=== PATIENT | female | born 1955 | race American Indian/Alaskan Native ===

== ENCOUNTER 2018-08-11 16:16 | Inpatient (IN) | payer MEDICARE ==
[2018-08-11] MEDS ORDERED: NACL 0.9% 500 ML 500 ML IV ONE (16:49)
--- NOTE | 2018-08-11 16:53 | Emergency Department Report ---
ED Fever HPI - General Stated Complaint: ELEVATED TEMP Time Seen by Provider: 08/11/18 16:40 Source: patient, EMS, other Exam Limitations: no limitations - History of Present Illness Initial Comments: He is a 62-year-old female who presents emergency room for evaluation of fever and cough. Patient was sent here by [facility] a local psychiatric facility. [facility] states patient had elevated heart rate and a temperature 100.3 and would like patient to be evaluated. Patient states she had a fever for 2 days. Patient states low-grade. Patient states she's had a cough that has been worsening over 3 days. Patient denies chest pain . Patient complains of shortness of breath that is worse than her normal baseline from her COPD. Patient states she has a history of COPD secondary to bronchiectasis. Patient states her cough is nonproductive. Patient states her fever fluctuates. Timing/Duration: yesterday Fever Severity/Quality: low grade Fever Therapy [employer] MANAGER: none Associated Symptoms: cough. denies: chest pain, confusion, diaphoresis, headache, muscle aches, nausea/vomiting, rash, shortness of breath, sore throat, stiff neck, syncope, weakness ED Review of Systems ROS: Stated complaint: ELEVATED TEMP Other details as noted in HPI Constitutional: fever. denies: chills Eyes: denies: eye pain, eye discharge, vision change ENT: denies: ear pain, throat pain Respiratory: cough, shortness of breath. denies: wheezing Cardiovascular: denies: chest pain, palpitations Endocrine: no symptoms reported Gastrointestinal: denies: abdominal pain, nausea, diarrhea Genitourinary: denies: urgency, dysuria, discharge Musculoskeletal: denies: back pain, joint swelling, arthralgia Skin: denies: rash, lesions Neurological: denies: headache, weakness, paresthesias Psychiatric: denies: anxiety, depression Hematological/Lymphatic: denies: easy bleeding, easy bruising ED Past Medical Hx - Past Medical History Previous Medical History?: Yes Hx Hypertension: Yes Hx Diabetes: Yes Hx Renal Disease: Yes Hx Psychiatric Treatment: Yes Hx Asthma: Yes Hx COPD: Yes Additional medical history: hld, anx, depression, - Surgical History Past Surgical History?: Yes Additional Surgical History: Kidney transplant in 1991 - Family History Family history: hypertension - Social History Smoking Status: Former Smoker Substance Use Type: None - Medications Home Medications: Home Medications Medication Instructions Recorded Confirmed Last Taken Type Allopurinol [Zyloprim] 100 mg PO DAILY 08/11/18 08/11/18 Unknown History Allopurinol [Zyloprim] 100 mg PO QDAY 08/11/18 08/11/18 Unknown History Levocetirizine Dihydrochloride 5 mg PO QHS 08/11/18 08/11/18 Unknown History [Xyzal] Metoprolol [Lopressor TAB] 50 mg PO QDAY 08/11/18 08/11/18 Unknown History Omeprazole 40 mg PO QAM 08/11/18 08/11/18 Unknown History Omeprazole 40 mg PO QDAY 08/11/18 08/11/18 Unknown History Pantoprazole [Protonix] 40 mg PO QDAY 08/11/18 08/11/18 Unknown History Pravastatin [Pravachol] 20 mg PO QHS 08/11/18 08/11/18 Unknown History Sertraline [Zoloft] 50 mg PO QDAY 08/11/18 08/11/18 Unknown History Sodium Bicarbonate 650 mg PO BID 08/11/18 08/11/18 Unknown History Sodium Bicarbonate 650 mg PO BID 08/11/18 08/11/18 Unknown History Temazepam 30 mg PO QHS 08/11/18 08/11/18 Unknown History Temazepam [Restoril] 15 mg PO QHS 08/11/18 08/11/18 Unknown History cycloSPORINE [SandIMMUNE] 50 mg PO QHS 08/11/18 08/11/18 Unknown History cycloSPORINE [SandIMMUNE] 50 mg PO QHS 08/11/18 08/11/18 Unknown History metroNIDAZOLE [Flagyl] 500 mg PO BID 08/11/18 08/11/18 Unknown History predniSONE [Deltasone] 7.5 mg PO DAILY 08/11/18 08/11/18 Unknown History predniSONE [Deltasone] 7.5 mg PO QDAY 08/11/18 08/11/18 Unknown History ED Physical Exam - General Limitations: No Limitations General appearance: alert, in no apparent distress - Head Head exam: Present: atraumatic, normocephalic - Eye Eye exam: Present: normal appearance - ENT ENT exam: Present: mucous membranes moist - Neck Neck exam: Present: normal inspection - Respiratory Respiratory exam: Present: normal lung sounds bilaterally, rhonchi. Absent: respiratory distress, wheezes - Cardiovascular Cardiovascular Exam: Present: regular rate, normal rhythm. Absent: systolic murmur, diastolic murmur, rubs, gallop - GI/Abdominal GI/Abdominal exam: Present: soft, normal bowel sounds - Rectal Rectal exam: Present: deferred - Extremities Exam Extremities exam: Present: normal inspection - Back Exam Back exam: Present: normal inspection - Neurological Exam Neurological exam: Present: alert, oriented X3 - Psychiatric Psychiatric exam: Present: normal affect, normal mood - Skin Skin exam: Present: warm, dry, intact, normal color. Absent: rash ED Course Vital Signs 08/11/18 08/11/18 08/11/18 16:30 18:35 18:45 Temperature 98.5 F Pulse Rate 92 H 94 H 87 Respiratory 18 23 21 Rate Blood Pressure 131/79 149/58 149/58 Blood Pressure [Right] O2 Sat by Pulse 98 99 Oximetry 08/11/18 08/11/18 08/11/18 19:00 19:15 19:30 Temperature Pulse Rate 86 102 H Respiratory 24 25 H 18 Rate Blood Pressure 142/68 142/68 Blood Pressure [Right] O2 Sat by Pulse 100 Oximetry 08/11/18 08/11/18 08/11/18 19:31 19:35 19:45 Temperature 98.4 F Pulse Rate 87 77 98 H Respiratory 25 H 18 22 Rate Blood Pressure 142/68 142/68 Blood Pressure 142/60 [Right] O2 Sat by Pulse 100 Oximetry 08/11/18 08/11/18 08/11/18 20:01 20:15 20:31 Temperature Pulse Rate 90 87 85 Respiratory 25 H 25 H 23 Rate Blood Pressure 142/60 142/60 142/68 Blood Pressure [Right] O2 Sat by Pulse Oximetry 08/11/18 08/11/18 08/11/18 20:59 21:00 21:15 Temperature Pulse Rate 91 H 93 H 99 H Respiratory 15 25 H 26 H Rate Blood Pressure 142/68 149/61 149/61 Blood Pressure [Right] O2 Sat by Pulse 99 Oximetry 08/11/18 08/11/18 08/11/18 21:46 22:00 22:16 Temperature Pulse Rate 85 85 92 H Respiratory 26 H 24 26 H Rate Blood Pressure 149/61 148/76 148/76 Blood Pressure [Right] O2 Sat by Pulse Oximetry 08/12/18 00:35 Temperature Pulse Rate 89 Respiratory 18 Rate Blood Pressure Blood Pressure 135/68 [Right] O2 Sat by Pulse 99 Oximetry - Reevaluation(s) Reevaluation #1: Discussed all results with patient. Patient will be admitted to the hospitalist service. Patient agrees to plan of care. Family at bedside. Lung sounds evaluated and patient is wheezing now and rhonchi. 08/11/18 19:15 - Consultations Consultation #1: Hospitalist consulted for admission. Hospitalist to admit patient. Hospitalist to assume care patient. 08/11/18 19:21 ED Medical Decision Making - Lab Data Result diagrams: 08/11/18 16:59 08/11/18 16:59 - EKG Data -: EKG Interpreted by Ca EKG shows normal: sinus rhythm, axis, intervals, QRS complexes, ST-T waves Rate: normal - Radiology Data Radiology results: report reviewed, image reviewed PROCEDURE: XR CHEST 1V AP TECHNIQUE: Chest radiograph single view. HISTORY: cough.fever. COMPARISONS: None . FINDINGS: Heart: Normal. Mediastinum/Vessels: Normal. Lungs/Pleural space: Mild haziness in the lateral right midlung zone may be due to atelectasis or early infiltrate.. Bony thorax: No acute osseous abnormality. Narrowing of the acromiohumeral distances in both shoulder with superior migration of the humeral head suggests rotator cuff injury. Life support devices: None. IMPRESSION: Mild atelectasis or early infiltrate in the lateral aspect of the right midlung zone - Medical Decision Making Patient is a 62-year-old female that presents emergency room with complaints of cough and fever and shortness of breath. Patient has history of bronchiectasis. Patient found to have right sided pneumonia. Patient found to have UTI. Patient's other labs unremarkable except for CK D. Patient was admitted to the hospitalist service. Patient given fluids and antibiotics. Patient is not septic. Lactic acid negative. - Differential Diagnosis cough. Fever. COPD exacerbation. Pneumonia. UTI. Critical Care Time: Yes Critical care attestation.: If time is entered above; I have spent that time in minutes in the direct care of this critically ill patient, excluding procedure time. Critical Care Time: 45 minutes ED Disposition Clinical Impression: Cough, SOB (shortness of breath), Anemia with low platelet count, Thrombocytopenia Pneumonia Qualifiers: Pneumonia type: due to unspecified organism Laterality: left Lung location: l ower lobe of lung Qualified Code(s): J18.1 - Lobar pneumonia, unspecified o rganism Fever Qualifiers: Fever type: unspecified Qualified Code(s): R50.9 - Fever, unspecified UTI (urinary tract infection) Qualifiers: Urinary tract infection type: acute cystitis Hematuria presence: with hematuria Qualified Code(s): N30.01 - Acute cystitis with hematuria Disposition: OP ADMIT IP TO THIS HOSP Is pt being admited?: Yes Does the pt Need Aspirin: No Condition: Critical Time of Disposition: 19:24
[2018-08-11 17:22] LABS: Basophils % (Auto) 0.4 % (0.0-1.8); Hematocrit 27.5 % (30.3-42.9); Hemoglobin 9.1 gm/dl (10.1-14.3); Lymphocytes # (Auto) 0.4 K/mm3 (1.2-5.4); Lymphocytes % (Auto) 6.2 % (13.4-35.0); Mean Corpuscular HGB Conc 33 % (30-34); Mean Corpuscular Volume 94 fl (79-97); Monocytes # (Auto) 0.5 K/mm3 (0.0-0.8); Monocytes % (Auto) 7.9 % (0.0-7.3); Red Blood Count 2.94 M/mm3 (3.65-5.03); Red Cell Distribution Width 17.7 % (13.2-15.2)
[2018-08-11 17:23] LABS: Platelet Count 51 K/mm3 (140-440)
[2018-08-11 17:46] LABS: Calcium 8.1 mg/dL (8.4-10.2)
--- NOTE | 2018-08-11 18:54 | XRay Report ---
PROCEDURE: XR CHEST 1V AP TECHNIQUE: Chest radiograph single view. HISTORY: cough.fever. COMPARISONS: None . FINDINGS: Heart: Normal. Mediastinum/Vessels: Normal. Lungs/Pleural space: Mild haziness in the lateral right midlung zone may be due to atelectasis or ea rly infiltrate.. Bony thorax: No acute osseous abnormality. Narrowing of the acromiohumeral distances in both shoulder with superior migration of the humeral head suggests rotator cuff injury. Life support devices: None. IMPRESSION: Mild atelectasis or early infiltrate in the lateral aspect of the right midlung zone This document is electronically signed by Jennyfer Jackson MD., August 11 2018 06:52:58 PM ET
[2018-08-11 18:58] LABS: Bilirubin,Urine NEG (Negative); Blood,Urine MOD (Negative); Color,Urine Yellow (Yellow); Urobilinogen,Urine < 2.0 mg/dL (<2.0)
[2018-08-11] MEDS ORDERED: MAXIPIME/NS 1 GM/100 ML 1 GM/100 ML BAG IV ONE (19:08)
[2018-08-11] MEDS ORDERED: NACL 0.9% 1000 ML 1,000 ML IV ONE (19:08)
[2018-08-11] MEDS ORDERED: SOLU-Medrol IV ONE (19:09)
[2018-08-11] MEDS ORDERED: DUONEB *Not for PRN Use IH ONE ×2 (19:22→22:07)
[2018-08-11] MEDS ORDERED: SODIUM CHLORIDE FLUSH SYRINGE 10 ML IV PRN (20:58)
[2018-08-11] MEDS ORDERED: ZOFRAN IV PRN (20:58)
[2018-08-11] MEDS ORDERED: TYLENOL PO PRN (20:58)
[2018-08-11] MEDS: SODIUM CHLORIDE FLUSH SYRINGE 10 ML IV SCH (21:05)
[2018-08-11] MEDS ORDERED: HEPARIN SUB-Q SCH (22:00)
[2018-08-11] MEDS ORDERED: D50W (25GM) Syringe IV PRN (23:04)
--- NOTE | 2018-08-11 23:06 | History and Physical Report ---
<AZUCENA MADISON - Last Filed: 08/11/18 23:08> History of Present Illness Date of examination: 08/11/18 Date of admission: 08/11/18 20:58 Chief complaint: Fever History of present illness: 62-year-old female with history of bronchiectasis, ESRD status post renal transplant (1991), hypertension, anemia, who presents to our facility from [place] (where is is currently 1013) with c/o fever and tachycardia. According to house physcican at [place] patient had low-grade temperature of 100.3 and elevated heart rate today and was facility and was referred to our facility for further evaluation and treatment. Patient's family is at bedside and states that she was recently admitted and treated for pneumonia at a facility in [facility]. As per family patient became confused and displayed psychosis behavior during her admission at the facility in [place] and was d/c'd to [place] for treatment. However, they feel her behavior was related to the medication she received. Admits to productive cough, and recent hospitalization Denies SI/HI, n/v/d, discolored sputum production, hemoptysis, chills, diaphoresis Past History Past Medical History: COPD, diabetes, hypertension, hyperlipidemia (anxiety and depression), renal failure, other (asthma, bronchiectasis) Past Surgical History: Other (renal transplant 1991) Social history: other (currently 1013 at [place]) Family history: no significant family history Medications and Allergies Allergies Allergy/AdvReac Type Severity Reaction Status Date / Time ropinirole Allergy Unknown Verified 08/11/18 17:48 Home Medications Medication Instructions Recorded Confirmed Last Taken Type Allopurinol [Zyloprim] 100 mg PO DAILY 08/11/18 08/11/18 Unknown History Allopurinol [Zyloprim] 100 mg PO QDAY 08/11/18 08/11/18 Unknown History Levocetirizine Dihydrochloride 5 mg PO QHS 08/11/18 08/11/18 Unknown History [Xyzal] Metoprolol [Lopressor TAB] 50 mg PO QDAY 08/11/18 08/11/18 Unknown History Omeprazole 40 mg PO QAM 08/11/18 08/11/18 Unknown History Omeprazole 40 mg PO QDAY 08/11/18 08/11/18 Unknown History Pantoprazole [Protonix] 40 mg PO QDAY 08/11/18 08/11/18 Unknown History Pravastatin [Pravachol] 20 mg PO QHS 08/11/18 08/11/18 Unknown History Sertraline [Zoloft] 50 mg PO QDAY 08/11/18 08/11/18 Unknown History Sodium Bicarbonate 650 mg PO BID 08/11/18 08/11/18 Unknown History Sodium Bicarbonate 650 mg PO BID 08/11/18 08/11/18 Unknown History Temazepam 30 mg PO QHS 08/11/18 08/11/18 Unknown History Temazepam [Restoril] 15 mg PO QHS 08/11/18 08/11/18 Unknown History cycloSPORINE [SandIMMUNE] 50 mg PO QHS 08/11/18 08/11/18 Unknown History cycloSPORINE [SandIMMUNE] 50 mg PO QHS 08/11/18 08/11/18 Unknown History metroNIDAZOLE [Flagyl] 500 mg PO BID 08/11/18 08/11/18 Unknown History predniSONE [Deltasone] 7.5 mg PO DAILY 08/11/18 08/11/18 Unknown History predniSONE [Deltasone] 7.5 mg PO QDAY 08/11/18 08/11/18 Unknown History cycloSPORINE [SandIMMUNE] 25 mg PO TID 08/12/18 08/12/18 08/07/18 History 25 mg Active Meds: Active Medications Acetaminophen (Tylenol) 650 mg PO Q4H PRN PRN Reason: Pain MILD(1-3)/Fever >100.5/HAYNES Albuterol (Proventil) 2.5 mg IH Q3HRT PRN PRN Reason: Shortness Of Breath Allopurinol (Zyloprim) 100 mg PO DAILY [facility] Docusate Sodium (Colace) 100 mg PO BID [facility] Ceftriaxone Sodium (Rocephin/Ns 1 Gm/50 Ml) 1 gm in 50 mls @ 100 mls/hr IV Q24HR [facility]; Protocol Azithromycin 500 mg/ Sodium (Chloride) 250 mls @ 250 mls/hr IV Q24HR [facility] Metoprolol Tartrate (Lopressor) 50 mg PO QDAY [facility] Miscellaneous Medication (Cyclosporine) 50 mg PO QHS [facility] Ondansetron HCl (Zofran) 4 mg IV Q8H PRN PRN Reason: Nausea And Vomiting Pravastatin Sodium (Pravachol) 20 mg PO QHS [facility] Prednisone (Deltasone) 7.5 mg PO DAILY [facility] Sodium Chloride (Sodium Chloride Flush Syringe 10 Ml) 10 ml IV BID [facility] Sodium Chloride (Sodium Chloride Flush Syringe 10 Ml) 10 ml IV PRN PRN PRN Reason: LINE FLUSH Temazepam (Restoril) 15 mg PO QHS [facility] Review of Systems All systems: negative (additional medical complaints except as noted below) Constitutional: fever Respiratory: cough (wet cough, history of bronchiectasis) Exam - Physical Exam Narrative exam: Physical exam General appearance: Present: No acute distress, alert and oriented 3, pleasant older adult female - EENT Eyes: Present: PERRL, EOM intact ENT: hearing intact, poor dentition - Neck Neck: Present: supple, normal ROM - Respiratory Respiratory effort: Non-labored Respiratory: Scattered rhonchi - Cardiovascular Heart rate: 92 (bpm) Rhythm: Sinus rhythm Heart Sounds: Present: S1 & S2. Absent: rub, click - Extremities Extremities: no ischemia, pulses intact, abnormal (BLE pitting edema, left upper extremity fistula, scattered bruising to her upper extremities - Peripheral Assessment Peripheral Pulses: within normal limits - Abdominal General gastrointestinal: soft, non-tender, normal bowel sounds - Integumentary Integumentary: Present: warm, dry - Musculoskeletal Musculoskeletal: Multiple extremities -Neurological Neurological: CNII-XII intact - Psychiatric Psychiatric: cooperative - Constitutional Vitals: Temp Pulse Resp BP Pulse Ox 98.5 F 92 H 26 H 148/76 99 08/11/18 16:30 08/11/18 22:16 08/11/18 22:16 08/11/18 22:16 08/11/18 20:59 Results - Labs CBC & Chem 7: 08/11/18 16:59 08/11/18 16:59 Labs: Laboratory Last Values WBC 6.6 K/mm3 (4.5-11.0) 08/11/18 16:59 RBC 2.94 M/mm3 (3.65-5.03) L 08/11/18 16:59 Hgb 9.1 gm/dl (10.1-14.3) L 08/11/18 16:59 Hct 27.5 % (30.3-42.9) L 08/11/18 16:59 MCV 94 fl (79-97) 08/11/18 16:59 MCH 31 pg (28-32) 08/11/18 16:59 MCHC 33 % (30-34) 08/11/18 16:59 RDW 17.7 % (13.2-15.2) H 08/11/18 16:59 Plt Count 51 K/mm3 (140-440) L 08/11/18 16:59 Lymph % (Auto) 6.2 % (13.4-35.0) L 08/11/18 16:59 [facility] % (Auto) 7.9 % (0.0-7.3) H 08/11/18 16:59 Eos % (Auto) 0.0 % (0.0-4.3) 08/11/18 16:59 Baso % (Auto) 0.4 % (0.0-1.8) 08/11/18 16:59 Lymph # 0.4 K/mm3 (1.2-5.4) L 08/11/18 16:59 [facility] # 0.5 K/mm3 (0.0-0.8) 08/11/18 16:59 Eos # 0.0 K/mm3 (0.0-0.4) 08/11/18 16:59 Baso # 0.0 K/mm3 (0.0-0.1) 08/11/18 16:59 Seg Neutrophils % 85.5 % (40.0-70.0) H 08/11/18 16:59 Seg Neutrophils # 5.7 K/mm3 (1.8-7.7) 08/11/18 16:59 Sodium 131 mmol/L (137-145) L 08/11/18 16:59 Potassium 4.5 mmol/L (3.6-5.0) 08/11/18 16:59 Chloride 94.0 mmol/L (98-107) L 08/11/18 16:59 Carbon Dioxide 24 mmol/L (22-30) 08/11/18 16:59 18 mmol/L 08/11/18 16:59 BUN 23 mg/dL (7-17) H 08/11/18 16:59 2.4 mg/dL (0.7-1.2) H 08/11/18 16:59 Estimated GFR 20 ml/min 08/11/18 16:59 10 % 08/11/18 16:59 Glucose 122 mg/dL (65-100) H 08/11/18 16:59 Lactic Acid 1.30 mmol/L (0.7-2.0) 08/11/18 19:32 Calcium 8.1 mg/dL (8.4-10.2) L 08/11/18 16:59 0.70 mg/dL (0.1-1.2) 08/11/18 16:59 AST 20 units/L (5-40) 08/11/18 16:59 ALT 10 units/L (7-56) 08/11/18 16:59 85 units/L (35-129) 08/11/18 16:59 5.6 g/dL (6.3-8.2) L 08/11/18 16:59 3.0 g/dL (3.9-5) L 08/11/18 16:59 1.2 % 08/11/18 16:59 Yellow (Yellow) 08/11/18 18:36 Clear (Clear) 08/11/18 18:36 8.0 (5.0-7.0) H 08/11/18 18:36 Ur Specific Ashkum 1.010 (1.003-1.030) 08/11/18 18:36 100 mg/dl mg/dL (Negative) 08/11/18 18:36 Neg mg/dL (Negative) 08/11/18 18:36 Neg mg/dL (Negative) 08/11/18 18:36 Mod (Negative) 08/11/18 18:36 Neg (Negative) 08/11/18 18:36 Neg (Negative) 08/11/18 18:36 < 2.0 mg/dL (<2.0) 08/11/18 18:36 Ur Leukocyte Esterase Mod (Negative) 08/11/18 18:36 75.0 /HPF (0.0-6.0) H 08/11/18 18:36 71.0 /HPF (0.0-6.0) 08/11/18 18:36 U Epithel Cells (Auto) 2.0 /HPF (0-13.0) 08/11/18 18:36 1+ /HPF 08/11/18 18:36 - Imaging and Cardiology EKG: image reviewed (sinus rhythm 92 bpm) Chest x-ray: report reviewed (Mild atelectasis or early infiltrate in the lateral aspect of the right midlung zone ), image reviewed Assessment and Plan Assessment and plan: 62-year-old female with history of bronchiectasis, ESRD status post renal transplant (1991), hypertension, anemia, who presents to our facility from [place] (where is is currently 1013) with c/o fever and tachycardia. Pt is on chronic steroids and cyclosporine post renal transplant. On presentation patient is afebrile with heart rate of 92 bpm. Urine WBC 75. Lactic acid within normal limits 2. Patient is afebrile at 98.5. Mild hyponatremia with sodium of 131. Will admit to medical floor. Urinary tract infection Hyponatremia ESRD s/p renal transplant 1991 Anemia hbg 9.1 Mild to moderate retraction DM 2 Hypertension Bronchiectasis COPD/asthma GERD HLD History of anxiety/depression Plan: Continue support care Urine culture pending Monitor CBC Monitor BMP Monitor Na, received pt 1.5L NS in ED; has BLE pitting edema, will hold off on additional fluids at this time Start Rocephin and azithromycin Continue cyclosporine and oral steroid Nephrology consultation Mental health consult pending Monitor BP Continue Home dose metoprolol 50mg daily Continue pravastatin 20 mg daily at bedtime Albuterol when necessary POC BG moitoring SSI coverage [id number] pending Continue Protonix 40mg daily DVT PPx on Heparin and SCD's This patient is seen in conjunction with Dr. Abad Advance Directives: No VTE prophylaxis?: Chemical Plan of care discussed with patient/family: Yes <PRIYA ABAD - Last Filed: 08/13/18 22:08> History of Present Illness Date of admission: 08/11/18 20:58 Medications and Allergies Active Meds: Active Medications Acetaminophen (Tylenol) 650 mg PO Q4H PRN PRN Reason: Pain MILD(1-3)/Fever >100.5/HAYNES Albuterol (Proventil) 2.5 mg IH Q3HRT PRN PRN Reason: Shortness Of Breath Allopurinol (Zyloprim) 100 mg PO DAILY [facility] Cyclosporine (Sandimmune) 50 mg PO QHS [facility] Dextrose (D50w (25gm) Syringe) 50 ml IV PRN PRN PRN Reason: Hypoglycemia Docusate Sodium (Colace) 100 mg PO BID [facility] Last Admin: 08/11/18 23:23 Dose: Not Given Documented by: Ceftriaxone Sodium (Rocephin/Ns 1 Gm/50 Ml) 1 gm in 50 mls @ 100 mls/hr IV Q24HR [facility]; Protocol Azithromycin 500 mg/ Sodium (Chloride) 250 mls @ 250 mls/hr IV Q24HR [facility] Insulin Human Lispro (Humalog) 0 unit SUB-Q ACHS CARL[facility]; Protocol Metoprolol Tartrate (Lopressor) 50 mg PO QDAY [facility] Ondansetron HCl (Zofran) 4 mg IV Q8H PRN PRN Reason: Nausea And Vomiting Pantoprazole Sodium (Protonix) 40 mg PO QDAY [facility] Pravastatin Sodium (Pravachol) 20 mg PO QHS [facility] Prednisone (Deltasone) 7.5 mg PO DAILY [facility] Sodium Chloride (Sodium Chloride Flush Syringe 10 Ml) 10 ml IV BID [facility] Last Admin: 08/11/18 21:05 Dose: 10 ml Documented by: Sodium Chloride (Sodium Chloride Flush Syringe 10 Ml) 10 ml IV PRN PRN PRN Reason: LINE FLUSH Temazepam (Restoril) 15 mg PO QHS [facility] Exam - Constitutional Vitals: Temp Pulse Resp BP Pulse Ox 98.5 F 92 H 26 H 148/76 99 08/11/18 16:30 08/11/18 22:16 08/11/18 22:16 08/11/18 22:16 08/11/18 20:59 Results - Labs CBC & Chem 7: 08/13/18 07:01 08/13/18 07:01 Labs: Laboratory Last Values WBC 6.6 K/mm3 (4.5-11.0) 08/11/18 16:59 RBC 2.94 M/mm3 (3.65-5.03) L 08/11/18 16:59 Hgb 9.1 gm/dl (10.1-14.3) L 08/11/18 16:59 Hct 27.5 % (30.3-42.9) L 08/11/18 16:59 MCV 94 fl (79-97) 08/11/18 16:59 MCH 31 pg (28-32) 08/11/18 16:59 MCHC 33 % (30-34) 08/11/18 16:59 RDW 17.7 % (13.2-15.2) H 08/11/18 16:59 Plt Count 51 K/mm3 (140-440) L 08/11/18 16:59 Lymph % (Auto) 6.2 % (13.4-35.0) L 08/11/18 16:59 [facility] % (Auto) 7.9 % (0.0-7.3) H 08/11/18 16:59 Eos % (Auto) 0.0 % (0.0-4.3) 08/11/18 16:59 Baso % (Auto) 0.4 % (0.0-1.8) 08/11/18 16:59 Lymph # 0.4 K/mm3 (1.2-5.4) L 08/11/18 16:59 [facility] # 0.5 K/mm3 (0.0-0.8) 08/11/18 16:59 Eos # 0.0 K/mm3 (0.0-0.4) 08/11/18 16:59 Baso # 0.0 K/mm3 (0.0-0.1) 08/11/18 16:59 Seg Neutrophils % 85.5 % (40.0-70.0) H 08/11/18 16:59 Seg Neutrophils # 5.7 K/mm3 (1.8-7.7) 08/11/18 16:59 Sodium 131 mmol/L (137-145) L 08/11/18 16:59 Potassium 4.5 mmol/L (3.6-5.0) 08/11/18 16:59 Chloride 94.0 mmol/L (98-107) L 08/11/18 16:59 Carbon Dioxide 24 mmol/L (22-30) 08/11/18 16:59 18 mmol/L 08/11/18 16:59 BUN 23 mg/dL (7-17) H 08/11/18 16:59 2.4 mg/dL (0.7-1.2) H 08/11/18 16:59 Estimated GFR 20 ml/min 08/11/18 16:59 10 % 08/11/18 16:59 Glucose 122 mg/dL (65-100) H 08/11/18 16:59 5.9 % (4-6) 08/11/18 23:19 Lactic Acid 1.30 mmol/L (0.7-2.0) 08/11/18 19:32 Calcium 8.1 mg/dL (8.4-10.2) L 08/11/18 16:59 0.70 mg/dL (0.1-1.2) 08/11/18 16:59 AST 20 units/L (5-40) 08/11/18 16:59 ALT 10 units/L (7-56) 08/11/18 16:59 85 units/L (35-129) 08/11/18 16:59 5.6 g/dL (6.3-8.2) L 08/11/18 16:59 3.0 g/dL (3.9-5) L 08/11/18 16:59 1.2 % 08/11/18 16:59 Yellow (Yellow) 08/11/18 18:36 Clear (Clear) 08/11/18 18:36 8.0 (5.0-7.0) H 08/11/18 18:36 Ur Specific Ash[place]um 1.010 (1.003-1.030) 08/11/18 18:36 100 mg/dl mg/dL (Negative) 08/11/18 18:36 Neg mg/dL (Negative) 08/11/18 18:36 Neg mg/dL (Negative) 08/11/18 18:36 Mod (Negative) 08/11/18 18:36 Neg (Negative) 08/11/18 18:36 Neg (Negative) 08/11/18 18:36 < 2.0 mg/dL (<2.0) 08/11/18 18:36 Ur Leukocyte Esterase Mod (Negative) 08/11/18 18:36 75.0 /HPF (0.0-6.0) H 08/11/18 18:36 71.0 /HPF (0.0-6.0) 08/11/18 18:36 U Epithel Cells (Auto) 2.0 /HPF (0-13.0) 08/11/18 18:36 1+ /HPF 08/11/18 18:36 Assessment and Plan Assessment and plan: Patient seen and examined, discussed with nurse practitioner. 62-year-old woman with a history of hypertension, diabetes, chronic kidney disease, status post renal transplant, asthma, COPD, anxiety was sent from [place] for evaluation of fever. He that [facility] on the and treated for pneumonia, unclear how long she was treated for. During that admission she was started on new medication, Seroquel, she started hallucinating, hearing voices and wanted to kill herself, she was subsequently discharged to [place] yesterday. Labs significant for urinary tract infection, hyponatremia at 131, agree with plan as stated above except discontinue heparin, patient with thrombocytopenia, place on 1013
[2018-08-11] MEDS ORDERED: COLACE ONE (23:17)
[2018-08-11] MEDS: COLACE PO SCH (23:23)
[2018-08-12] MEDS: HumaLOG SUB-Q SCH ×2 (09:26→11:30)
[2018-08-12] MEDS ORDERED: ZITHROMAX 500 MG in NACL 0.9% 250ML 250 ML IV SCH (10:00)
[2018-08-12] MEDS: SODIUM CHLORIDE FLUSH SYRINGE 10 ML IV SCH ×2 (10:01→21:29)
[2018-08-12] MEDS: ROCEPHIN/NS 1 GM/50 ML 1 GM/50 ML BAG IV SCH (12:05)
--- NOTE | 2018-08-12 13:32 | Progress Note ---
Assessment and Plan Assessment and plan: Patient is a 62-year-old woman with history of COPD/bronchiectasis, CKD 4 status post renal transplant (1991) not on hemodialysis but has a left arm AVF in anticipation for HD in the future, hypertension and AOCD who presented to [facility] ED from [facility] (where is is currently 1013) with FEVERs. Initially, patient was admitted to [facility] for pneumonia and developed psychosis in hospital; therefore, discharged to [facility] near this Hospital. She has been admitted for UTI with sepsis causing Encephalopathy. Sepsis UTI, poa: treat with abx, follow cultures, IVFs Acute metabolic encephalopahty, poa due to above Hyponatremia, dehydration: treat with IVFs CKD 4 s/p renal transplant 1991: continue home Continue cyclosporine and oral steroid, Nephrology consulted AOCD due to chronic renal failure: monitor cbc closely Depression with psychosis: mental health consulted, on 1013 Hypertension: low salt diet COPD/asthma: prn nebs GERD: ppi HLD: statin DVT ppx reviewed full code History Interval history: Patient was seen and examined. Follow-up on current diagnosis of AMS. No overnight events reported to me. Patient denies any chest pain, shortness breath, nausea/vomiting or severe headaches. Imaging, nursing note, chart, labs and old chart reviewed. Discussed with patient. I sat down and d/w patient and daughter Keya at bedside. Hospitalist Physical - Physical exam Narrative exam: Gen: WDWN, NAD, Awake, Alert, Orientated x 2, missed location, she thought she was at [facility] HEENT: NCAT, EOMI, PERRL, OP Clear Neck: supple, no adenopathy, no thyromegaly, no JVD CVS/Heart: RRR, normal S1S2, pulses present bilaterally Chest/Lungs: CTA B, Symmetrical chest expansion, good air entry bilaterally GI/Abdomen: soft, NTND, good bowel sounds, no guarding or rebound /Bladder: no suprapubic tenderness, no CVA or paraspinal tenderness Extermity/Skin: no c/c/e, no obvious rash, many seborrheic dermatitis on face MSK: FROM x 4 Neuro: CN 2-12 grossly intact, no new focal deficits Psych: calm but unpleasant to me, when I ask a question she doesn't respond but then the daughter will ask the same question and she responds. Refused to shake my hands - Constitutional Vitals: Temp Pulse Resp BP Pulse Ox 98.6 F 90 22 137/61 97 08/12/18 11:55 08/12/18 11:55 08/12/18 11:55 08/12/18 11:55 08/12/18 11:55 Results - Labs CBC & Chem 7: 08/11/18 16:59 08/11/18 16:59 Labs: Laboratory Last Values WBC 6.6 K/mm3 (4.5-11.0) 08/11/18 16:59 RBC 2.94 M/mm3 (3.65-5.03) L 08/11/18 16:59 Hgb 9.1 gm/dl (10.1-14.3) L 08/11/18 16:59 Hct 27.5 % (30.3-42.9) L 08/11/18 16:59 MCV 94 fl (79-97) 08/11/18 16:59 MCH 31 pg (28-32) 08/11/18 16:59 MCHC 33 % (30-34) 08/11/18 16:59 RDW 17.7 % (13.2-15.2) H 08/11/18 16:59 Plt Count 51 K/mm3 (140-440) L 08/11/18 16:59 Lymph % (Auto) 6.2 % (13.4-35.0) L 08/11/18 16:59 [place] % (Auto) 7.9 % (0.0-7.3) H 08/11/18 16:59 Eos % (Auto) 0.0 % (0.0-4.3) 08/11/18 16:59 Baso % (Auto) 0.4 % (0.0-1.8) 08/11/18 16:59 Lymph # 0.4 K/mm3 (1.2-5.4) L 08/11/18 16:59 [place] # 0.5 K/mm3 (0.0-0.8) 08/11/18 16:59 Eos # 0.0 K/mm3 (0.0-0.4) 08/11/18 16:59 Baso # 0.0 K/mm3 (0.0-0.1) 08/11/18 16:59 Seg Neutrophils % 85.5 % (40.0-70.0) H 08/11/18 16:59 Seg Neutrophils # 5.7 K/mm3 (1.8-7.7) 08/11/18 16:59 Sodium 131 mmol/L (137-145) L 08/11/18 16:59 Potassium 4.5 mmol/L (3.6-5.0) 08/11/18 16:59 Chloride 94.0 mmol/L (98-107) L 08/11/18 16:59 Carbon Dioxide 24 mmol/L (22-30) 08/11/18 16:59 18 mmol/L 08/11/18 16:59 BUN 23 mg/dL (7-17) H 08/11/18 16:59 2.4 mg/dL (0.7-1.2) H 08/11/18 16:59 Estimated GFR 20 ml/min 08/11/18 16:59 10 % 08/11/18 16:59 Glucose 122 mg/dL (65-100) H 08/11/18 16:59 POC Glucose 108 (70-105) H 08/12/18 12:03 5.9 % (4-6) 08/11/18 23:19 Lactic Acid 1.30 mmol/L (0.7-2.0) 08/11/18 19:32 Calcium 8.1 mg/dL (8.4-10.2) L 08/11/18 16:59 0.70 mg/dL (0.1-1.2) 08/11/18 16:59 AST 20 units/L (5-40) 08/11/18 16:59 ALT 10 units/L (7-56) 08/11/18 16:59 85 units/L (35-129) 08/11/18 16:59 5.6 g/dL (6.3-8.2) L 08/11/18 16:59 3.0 g/dL (3.9-5) L 08/11/18 16:59 1.2 % 08/11/18 16:59 Yellow (Yellow) 08/11/18 18:36 Clear (Clear) 08/11/18 18:36 8.0 (5.0-7.0) H 08/11/18 18:36 Ur Specific [place] 1.010 (1.003-1.030) 08/11/18 18:36 100 mg/dl mg/dL (Negative) 08/11/18 18:36 Neg mg/dL (Negative) 08/11/18 18:36 Neg mg/dL (Negative) 08/11/18 18:36 Mod (Negative) 08/11/18 18:36 Neg (Negative) 08/11/18 18:36 Neg (Negative) 08/11/18 18:36 < 2.0 mg/dL (<2.0) 08/11/18 18:36 Ur Leukocyte Esterase Mod (Negative) 08/11/18 18:36 75.0 /HPF (0.0-6.0) H 08/11/18 18:36 71.0 /HPF (0.0-6.0) 08/11/18 18:36 U Epithel Cells (Auto) 2.0 /HPF (0-13.0) 08/11/18 18:36 1+ /HPF 08/11/18 18:36 Active Medications - Current Medications Current Medications: Generic Name Dose Route Start Last Admin Trade Name Freq PRN Reason Stop Dose Admin Acetaminophen 650 mg 08/11/18 20:58 Tylenol PO Q4H PRN Pain MILD(1-3)/Fever >100.5/HAYNES Albuterol 2.5 mg 08/11/18 20:58 Proventil IH Q3HRT PRN Shortness Of Breath Allopurinol 100 mg 08/12/18 10:00 08/12/18 10:02 Zyloprim PO 100 mg DAILY CARLOS Administration Cyclosporine 50 mg 08/12/18 22:00 Sandimmune PO QHS CARLOS Dextrose 50 ml 08/11/18 23:04 D50w (25gm) Syringe IV PRN PRN Hypoglycemia Docusate Sodium 100 mg 08/11/18 22:00 08/12/18 10:03 Colace PO 100 mg BID CARLOS Administration Ceftriaxone Sodium 1 gm in 50 mls @ 100 mls/hr 08/12/18 10:00 08/12/18 12:05 Rocephin/Ns 1 Gm/50 Ml IV 100 mls/hr Q24HR CARLOS Administration Protocol Azithromycin 500 mg/ Sodium 250 mls @ 250 mls/hr 08/12/18 10:00 08/12/18 10:01 Chloride IV 250 mls/hr Q24HR CARLOS Administration Insulin Human Lispro 0 unit 08/12/18 07:30 08/12/18 09:26 Humalog SUB-Q 2 unit ACHS CARLOS Administration Protocol Metoprolol Tartrate 50 mg 08/12/18 10:00 Lopressor PO QDAY CARLOS Ondansetron HCl 4 mg 08/11/18 20:58 Zofran IV Q8H PRN Nausea And Vomiting Pantoprazole Sodium 40 mg 08/12/18 10:00 08/12/18 10:02 Protonix PO 40 mg QDAY CARLOS Administration Pravastatin Sodium 20 mg 08/12/18 22:00 Pravachol PO QHS CARLOS Prednisone 7.5 mg 08/12/18 10:00 08/12/18 10:02 Deltasone PO 7.5 mg DAILY CARLOS Administration Sodium Chloride 10 ml 08/11/18 22:00 08/12/18 10:01 Sodium Chloride Flush Syringe 10 Ml IV 10 ml BID CARLOS Administration Sodium Chloride 10 ml 08/11/18 20:58 Sodium Chloride Flush Syringe 10 Ml IV PRN PRN LINE FLUSH Temazepam 15 mg 08/12/18 22:00 Restoril PO QHS CARLOS
[2018-08-12] MEDS ORDERED: NACL 0.9% 1000 ML 1,000 ML IV SCH (15:00)
[2018-08-12] MEDS: COLACE PO SCH ×2 (16:30→21:29)
[2018-08-12] MEDS: DELTASONE PO SCH (16:30)
[2018-08-12] MEDS: ZYLOPRIM PO SCH (16:30)
[2018-08-12] MEDS: LOPRESSOR PO SCH (16:30)
[2018-08-12] MEDS: PROTONIX PO SCH (16:30)
--- NOTE | 2018-08-12 18:56 | Consultation ---
History of Present Illness - Reason for Consult Consult date: 08/12/18 chronic renal failure - History of Present Illness Mrs. Chavez is a 62yo kidney transplant recipient on chronic immunosuppressive therapy who presented to the ED from [place] with hx of fever and tachycardia. She reports living related donor kidney transplant at [place] in 1991. She reports that her cartridge feeder is Dr. Chavira. Her last visit was appx 6 months ago. She reports that her last SCr was 2.8mg/dL which she reports as her baseline. She denies dysuria, hematuria, allograft tenderness. She denies nausea, vomiting. She reports cough. Mrs. Chavez was recently admitted to an OSH for PNA. Past History Past Medical History: COPD, diabetes, hypertension, hyperlipidemia (anxiety and depression), other (Living related donor kidney transplant 1991 at [place]) Past Surgical History: Other (renal transplant 1991) Social history: other (currently 1013 at [place]) Family history: no significant family history Medications and Allergies Allergies Allergy/AdvReac Type Severity Reaction Status Date / Time ropinirole Allergy Unknown Verified 08/11/18 17:48 Home Medications Medication Instructions Recorded Confirmed Last Taken Type Allopurinol [Zyloprim] 100 mg PO DAILY 08/11/18 08/11/18 Unknown History Allopurinol [Zyloprim] 100 mg PO QDAY 08/11/18 08/11/18 Unknown History Levocetirizine Dihydrochloride 5 mg PO QHS 08/11/18 08/11/18 Unknown History [Xyzal] Metoprolol [Lopressor TAB] 50 mg PO QDAY 08/11/18 08/11/18 Unknown History Omeprazole 40 mg PO QAM 08/11/18 08/11/18 Unknown History Omeprazole 40 mg PO QDAY 08/11/18 08/11/18 Unknown History Pantoprazole [Protonix] 40 mg PO QDAY 08/11/18 08/11/18 Unknown History Pravastatin [Pravachol] 20 mg PO QHS 08/11/18 08/11/18 Unknown History Sertraline [Zoloft] 50 mg PO QDAY 08/11/18 08/11/18 Unknown History Sodium Bicarbonate 650 mg PO BID 08/11/18 08/11/18 Unknown History Sodium Bicarbonate 650 mg PO BID 08/11/18 08/11/18 Unknown History Temazepam 30 mg PO QHS 08/11/18 08/11/18 Unknown History Temazepam [Restoril] 15 mg PO QHS 08/11/18 08/11/18 Unknown History cycloSPORINE [SandIMMUNE] 50 mg PO QHS 08/11/18 08/11/18 Unknown History cycloSPORINE [SandIMMUNE] 50 mg PO QHS 08/11/18 08/11/18 Unknown History metroNIDAZOLE [Flagyl] 500 mg PO BID 08/11/18 08/11/18 Unknown History predniSONE [Deltasone] 7.5 mg PO DAILY 08/11/18 08/11/18 Unknown History predniSONE [Deltasone] 7.5 mg PO QDAY 08/11/18 08/11/18 Unknown History cycloSPORINE [SandIMMUNE] 25 mg PO TID 08/12/18 08/12/18 08/07/18 History 25 mg Active Meds: Active Medications Acetaminophen (Tylenol) 650 mg PO Q4H PRN PRN Reason: Pain MILD(1-3)/Fever >100.5/HAYNES Albuterol (Proventil) 2.5 mg IH Q3HRT PRN PRN Reason: Shortness Of Breath Allopurinol (Zyloprim) 100 mg PO DAILY [facility] Last Admin: 08/12/18 16:30 Dose: 100 mg Documented by: Cyclosporine (Sandimmune) 50 mg PO QHS [facility] Cyclosporine (Sandimmune) 75 mg PO QAM [facility] Docusate Sodium (Colace) 100 mg PO BID [facility] Last Admin: 08/12/18 16:30 Dose: 100 mg Documented by: Ceftriaxone Sodium (Rocephin/Ns 1 Gm/50 Ml) 1 gm in 50 mls @ 100 mls/hr IV Q 24HR [facility]; Protocol Last Admin: 08/12/18 12:05 Dose: 100 mls/hr Documented by: Sodium Chloride (Nacl 0.9% 1000 Ml) 1,000 mls @ 100 mls/hr IV DIRECT [facility] Stop: 08/13/18 00:59 Last Admin: 08/12/18 16:48 Dose: 100 mls/hr Documented by: Metoprolol Tartrate (Lopressor) 50 mg PO QDAY [facility] Last Admin: 08/12/18 16:30 Dose: 50 mg Documented by: Ondansetron HCl (Zofran) 4 mg IV Q8H PRN PRN Reason: Nausea And Vomiting Pantoprazole Sodium (Protonix) 40 mg PO QDAY [facility] Last Admin: 08/12/18 16:30 Dose: 40 mg Documented by: Pravastatin Sodium (Pravachol) 20 mg PO QHS [facility] Prednisone (Deltasone) 7.5 mg PO DAILY [facility] Last Admin: 08/12/18 16:30 Dose: 7.5 mg Documented by: Sodium Chloride (Sodium Chloride Flush Syringe 10 Ml) 10 ml IV BID [facility] Last Admin: 08/12/18 10:01 Dose: 10 ml Documented by: Sodium Chloride (Sodium Chloride Flush Syringe 10 Ml) 10 ml IV PRN PRN PRN Reason: LINE FLUSH Temazepam (Restoril) 15 mg PO QHS [facility] Review of Systems All systems: negative Exam - Vital Signs Vital signs: Vital Signs Temp Pulse Resp BP Pulse Ox 98.5 F 92 H 18 131/79 98 08/11/18 16:30 08/11/18 16:30 08/11/18 16:30 08/11/18 16:30 08/11/18 16:30 - General Appearance General appearance: well-developed, well-nourished EENT: ATNC Respiratory: Decreased Breath Sounds Heart: regular, S1S2 Gastrointestinal: Present: normal, other (no allograft tenderness with palpation). 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
[2018-08-12 20:30] LABS: Basophils % (Auto) 0.2 % (0.0-1.8); Eosinophils % (Auto) 0.1 % (0.0-4.3); Hematocrit 21.2 % (30.3-42.9); Hemoglobin 7.4 gm/dl (10.1-14.3); Lymphocytes # (Auto) 0.3 K/mm3 (1.2-5.4); Lymphocytes % (Auto) 7.1 % (13.4-35.0); Mean Corpuscular HGB Conc 35 % (30-34); Mean Corpuscular Volume 93 fl (79-97); Monocytes # (Auto) 0.2 K/mm3 (0.0-0.8); Red Blood Count 2.28 M/mm3 (3.65-5.03); Red Cell Distribution Width 18.1 % (13.2-15.2)
[2018-08-12 20:38] LABS: Platelet Count 59 K/mm3 (140-440)
[2018-08-12 20:59] LABS: Calcium 7.3 mg/dL (8.4-10.2)
[2018-08-12] MEDS: RESTORIL PO SCH (21:28)
[2018-08-12] MEDS: PRAVACHOL PO SCH (21:29)
[2018-08-12] MEDS: SandIMMUNE PO SCH (21:29)
[2018-08-12] MEDS ORDERED: CYCLOSPORINE 50 MG PO SCH (22:00)
[2018-08-13 07:18] LABS: Hematocrit 20.7 % (30.3-42.9); Mean Corpuscular HGB Conc 34 % (30-34); Mean Corpuscular Volume 95 fl (79-97); Platelet Count 60 K/mm3 (140-440); Red Blood Count 2.18 M/mm3 (3.65-5.03); Red Cell Distribution Width 18.1 % (13.2-15.2)
[2018-08-13] MEDS: ZYLOPRIM PO SCH (09:11)
[2018-08-13] MEDS: SandIMMUNE PO SCH ×2 (09:11→21:15)
[2018-08-13] MEDS: DELTASONE PO SCH (09:12)
[2018-08-13] MEDS: COLACE PO SCH ×2 (09:12→21:15)
[2018-08-13] MEDS: LOPRESSOR PO SCH (09:13)
[2018-08-13] MEDS: PROTONIX PO SCH (09:13)
[2018-08-13] MEDS ORDERED: BROVANA NEBU IH ONE (09:49)
[2018-08-13] MEDS: BROVANA NEBU IH SCH ×2 (09:51→20:22)
[2018-08-13] MEDS: PULMICORT IH SCH ×2 (09:57→20:22)
[2018-08-13] MEDS: PROVENTIL IH PRN (11:28)
[2018-08-13] MEDS: ROCEPHIN/NS 1 GM/50 ML 1 GM/50 ML BAG IV SCH ×2 (11:55→17:29)
[2018-08-13] MEDS: SODIUM CHLORIDE FLUSH SYRINGE 10 ML IV SCH ×3 (11:56→21:17)
[2018-08-13] MEDS: ZITHROMAX 500 MG in NACL 0.9% 250ML 250 ML IV SCH ×2 (11:56→17:30)
--- NOTE | 2018-08-13 13:18 | Progress Note ---
Assessment and Plan Assessment and plan: Patient is a 62-year-old woman with history of COPD/bronchiectasis, CKD 4 status post renal transplant (1991) not on hemodialysis but has a left arm AVF in anticipation for HD in the future, hypertension and AOCD who presented to [facility] ED from [facility] (where is is currently 1013) with FEVERs. Initially, patient was admitted to [facility] for pneumonia and developed psychosis in hospital; therefore, discharged to [facility] near this Hospital. She has been admitted for UTI with sepsis causing Encephalopathy. Sepsis UTI, poa: treat with abx, follow cultures, IVFs Acute metabolic encephalopahty, poa due to above Hyponatremia, dehydration: treat with IVFs CKD 4 s/p renal transplant 1991: continue home Continue cyclosporine and oral steroid, Nephrology consulted AOCD due to chronic renal failure: monitor cbc closely Depression with psychosis: mental health consulted, on 1013 Hypertension: low salt diet COPD/asthma: prn nebs GERD: ppi HLD: statin DVT ppx reviewed full code Bronchospasm; ordered neb but she is refusing RUL/RML aspiration pneumonia: restart iv rocephin and azithromycin,she is refusing peripheral iv line. Counseling done. History Interval history: Patient was seen and examined. Follow-up on current diagnosis of AMS. No overnight events reported to me. Patient denies any chest pain, shortness breath, nausea/vomiting or severe headaches. Imaging, nursing note, chart, labs and old chart reviewed. Discussed with patient. I sat down and d/w patient and daughter Keya at bedside. Hospitalist Physical - Physical exam Narrative exam: Gen: WDWN, NAD, Awake, Alert, Orientated x 2, missed location, she thought she was at [facility] HEENT: NCAT, EOMI, PERRL, OP Clear Neck: supple, no adenopathy, no thyromegaly, no JVD CVS/Heart: RRR, normal S1S2, pulses present bilaterally Chest/Lungs: CTA B, Symmetrical chest expansion, good air entry bilaterally GI/Abdomen: soft, NTND, good bowel sounds, no guarding or rebound /Bladder: no suprapubic tenderness, no CVA or paraspinal tenderness Extermity/Skin: no c/c/e, no obvious rash, many seborrheic dermatitis on face MSK: FROM x 4 Neuro: CN 2-12 grossly intact, no new focal deficits Psych: calm but unpleasant to me, when I ask a question she doesn't respond but then the daughter will ask the same question and she responds. Refused to shake my hands - Constitutional Vitals: Temp Pulse Resp BP Pulse Ox 98.2 F 93 H 24 153/95 96 08/13/18 11:57 08/13/18 11:57 08/13/18 11:57 08/13/18 11:57 08/13/18 11:57 Results - Labs CBC & Chem 7: 08/13/18 07:01 08/13/18 07:01 Labs: Laboratory Last Values WBC 2.3 K/mm3 (4.5-11.0) L 08/13/18 07:01 RBC 2.18 M/mm3 (3.65-5.03) L 08/13/18 07:01 Hgb 7.0 gm/dl (10.1-14.3) L 08/13/18 07:01 Hct 20.7 % (30.3-42.9) L 08/13/18 07:01 MCV 95 fl (79-97) 08/13/18 07:01 MCH 32 pg (28-32) 08/13/18 07:01 MCHC 34 % (30-34) 08/13/18 07:01 RDW 18.1 % (13.2-15.2) H 08/13/18 07:01 Plt Count 60 K/mm3 (140-440) L 08/13/18 07:01 Lymph % (Auto) 7.1 % (13.4-35.0) L 08/12/18 20:18 [place] % (Auto) 4.0 % (0.0-7.3) 08/12/18 20:18 Eos % (Auto) 0.1 % (0.0-4.3) 08/12/18 20:18 Baso % (Auto) 0.2 % (0.0-1.8) 08/12/18 20:18 Lymph # 0.3 K/mm3 (1.2-5.4) L 08/12/18 20:18 [place] # 0.2 K/mm3 (0.0-0.8) 08/12/18 20:18 Eos # 0.0 K/mm3 (0.0-0.4) 08/12/18 20:18 Baso # 0.0 K/mm3 (0.0-0.1) 08/12/18 20:18 Seg Neutrophils % 88.6 % (40.0-70.0) H 08/12/18 20:18 Seg Neutrophils # 3.7 K/mm3 (1.8-7.7) 08/12/18 20:18 Sodium 139 mmol/L (137-145) 08/13/18 07:01 Potassium 4.1 mmol/L (3.6-5.0) 08/13/18 07:01 Chloride 101.5 mmol/L (98-107) 08/13/18 07:01 Carbon Dioxide 21 mmol/L (22-30) L 08/13/18 07:01 21 mmol/L 08/13/18 07:01 BUN 23 mg/dL (7-17) H 08/13/18 07:01 2.6 mg/dL (0.7-1.2) H 08/13/18 07:01 Estimated GFR 23 ml/min 08/13/18 07:01 9 % 08/13/18 07:01 Glucose 83 mg/dL (65-100) 08/13/18 07:01 POC Glucose 109 (70-105) H 08/13/18 11:27 5.9 % (4-6) 08/11/18 23:19 Lactic Acid 1.30 mmol/L (0.7-2.0) 08/11/18 19:32 Calcium 7.0 mg/dL (8.4-10.2) L 08/13/18 07:01 0.70 mg/dL (0.1-1.2) 08/11/18 16:59 AST 20 units/L (5-40) 08/11/18 16:59 ALT 10 units/L (7-56) 08/11/18 16:59 85 units/L (35-129) 08/11/18 16:59 5.6 g/dL (6.3-8.2) L 08/11/18 16:59 3.0 g/dL (3.9-5) L 08/11/18 16:59 1.2 % 08/11/18 16:59 Yellow (Yellow) 08/11/18 18:36 Clear (Clear) 08/11/18 18:36 8.0 (5.0-7.0) H 08/11/18 18:36 Ur Specific [place] 1.010 (1.003-1.030) 08/11/18 18:36 100 mg/dl mg/dL (Negative) 08/11/18 18:36 Neg mg/dL (Negative) 08/11/18 18:36 Neg mg/dL (Negative) 08/11/18 18:36 Mod (Negative) 08/11/18 18:36 Neg (Negative) 08/11/18 18:36 Neg (Negative) 08/11/18 18:36 < 2.0 mg/dL (<2.0) 08/11/18 18:36 Ur Leukocyte Esterase Mod (Negative) 08/11/18 18:36 75.0 /HPF (0.0-6.0) H 08/11/18 18:36 71.0 /HPF (0.0-6.0) 08/11/18 18:36 U Epithel Cells (Auto) 2.0 /HPF (0-13.0) 08/11/18 18:36 1+ /HPF 08/11/18 18:36 Active Medications - Current Medications Current Medications: Generic Name Dose Route Start Last Admin Trade Name Freq PRN Reason Stop Dose Admin Acetaminophen 650 mg 08/11/18 20:58 Tylenol PO Q4H PRN Pain MILD(1-3)/Fever >100.5/HAYNES Albuterol 2.5 mg 08/11/18 20:58 08/13/18 11:28 Proventil IH 2.5 mg Q3HRT PRN Administration Shortness Of Breath Allopurinol 100 mg 08/12/18 10:00 08/13/18 09:11 Zyloprim PO 100 mg DAILY CARLOS Administration Arformoterol Tartrate 15 mcg 08/13/18 09:45 08/13/18 09:51 Brovana Nebu IH Not Given Q12HRT CARLOS Budesonide 0.5 mg 08/13/18 10:00 08/13/18 09:57 Pulmicort IH Not Given Q12HRT CARLOS Cyclosporine 50 mg 08/12/18 22:00 08/12/18 21:29 Sandimmune PO 50 mg QHS CARLOS Administration Cyclosporine 75 mg 08/13/18 10:00 08/13/18 09:11 Sandimmune PO 75 mg QAM CARLOS Administration Docusate Sodium 100 mg 08/11/18 22:00 08/13/18 09:12 Colace PO 100 mg BID CARLOS Administration Ceftriaxone Sodium 1 gm in 50 mls @ 100 mls/hr 08/12/18 10:00 08/13/18 11:55 Rocephin/Ns 1 Gm/50 Ml IV Not Given Q24HR CARLOS Protocol Azithromycin 500 mg/ Sodium 250 mls @ 250 mls/hr 08/13/18 10:00 08/13/18 11:56 Chloride IV Not Given Q24HR [facility] Metoprolol Tartrate 50 mg 08/12/18 10:00 08/13/18 09:13 Lopressor PO 50 mg QDAY CARLOS Administration Pantoprazole Sodium 40 mg 08/12/18 10:00 08/13/18 09:13 Protonix PO 40 mg QDAY CARLOS Administration Pravastatin Sodium 20 mg 08/12/18 22:00 08/12/18 21:29 Pravachol PO 20 mg QHS CARLOS Administration Prednisone 7.5 mg 08/12/18 10:00 08/13/18 09:12 Deltasone PO 7.5 mg DAILY CARLOS Administration Sodium Chloride 10 ml 08/11/18 22:00 08/13/18 11:56 Sodium Chloride Flush Syringe 10 Ml IV Not Given BID CARLOS Sodium Chloride 10 ml 08/11/18 20:58 Sodium Chloride Flush Syringe 10 Ml IV PRN PRN LINE FLUSH Temazepam 15 mg 08/12/18 22:00 08/12/18 21:28 Restoril PO 15 mg QHS CARLOS Administration Nutrition/Malnutrition Assess - Dietary Evaluation Nutrition/Malnutrition Findings: Nutrition Notes Start: 08/12/18 16:46 Freq: Status: Active Protocol: Document 08/12/18 16:46 RM (Rec: 08/12/18 16:55 RM [id number]) Nutrition Notes Need for Assessment generated from: tool inspector Initial or Follow up Assessment Current Diagnosis COPD,Diabetes,Hyperlipidemia Other Pertinent Diagnosis ESRD S/P renal transplant, GERD Current Diet Renal Labs/Tests Reviewed Pertinent Medications Solu-Medrol (08/11/18) Height 4 ft 11 in Weight 53.977 kg [place] Body Weight (kg) 43.18 BMI 24.0 Subjective/Other Information Screened for skin risk. [place] 15 points. Pt confused and w/sitter at time of visit. Per pt nurse pt ate 25% of breakfast this morning. Percent of energy/protein needs met: 44%/61% Burn Absent Trauma Absent #1 Nutrition Diagnosis Inadequate oral intake Etiology confusion As Evidenced by Signs and Symptoms pt nurse statement that pt ate 25% of breakfast this morning Is patient on ventilator? No Is Patient Ambulatory and/or Out of Bed No REE-([facility]-confined to bed) 7775.004 Calculation Used for Recommendations [facility] Additional Notes Protein Needs: 32-43g (0.6-0. 8g/kg) Fluid Needs: 1 ml/kcal Nutrition Intervention Change Diet Order: Continue current Add Supplement/Snack (indicate name/kcal Glucerna 1 daily /protein ) Provides kCal: 220 Provides Protein (gm) 10 Goal #1 Meet at least 75% of calorie and protein needs via PO and ONS intakes Anticipated Discharge Needs: Renal diet Follow-Up By: 08/14/18 Additional Comments Follow for PO and ONS intakes
[2018-08-13] MEDS ORDERED: DUONEB *Not for PRN Use IH SCH (14:00)
[2018-08-13] MEDS: ZOLOFT PO SCH (14:17)
--- NOTE | 2018-08-13 14:40 | Progress Note ---
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 Chavira as outpatient Subjective Date of service: 08/13/18 Interval history: Patient reports that she is feeling better. She is worried that the hospital wants to put her in senior living Objective - Vital Signs Vital signs: Vital Signs - 12hr 08/13/18 08/13/18 08/13/18 11:28 11:36 11:57 Temperature 98.2 F Pulse Rate 93 H Pulse Rate [ 82 92 H Bilateral Upper Lobe] Respiratory 24 Rate Respiratory 16 16 Rate [Bilateral Upper Lobe] Blood Pressure 153/95 O2 Sat by Pulse 96 Oximetry - General Appearance General appearance: well-developed, well-nourished EENT: ATNC Respiratory: Present: Other (coarse ) Cardiology: regular, S1S2 Gastrointestinal: normal, no tenderness, no distended Integumentary: warm and dry Musculoskeletal: other (+edema) Psychiatric: cooperative - Lab 08/13/18 07:01 08/13/18 07:01 Most recent lab results Calcium 7.0 mg/dL (8.4-10.2) L 08/13/18 07:01 Medications & Allergies - Medications Allergies/Adverse Reactions: Allergies ropinirole Allergy (Verified 08/11/18 17:48) Unknown hallucinations Home Medications: Home Medications Medication Instructions Recorded Confirmed Last Taken Type Allopurinol [Zyloprim] 100 mg PO DAILY 08/11/18 08/11/18 Unknown History Allopurinol [Zyloprim] 100 mg PO QDAY 08/11/18 08/11/18 Unknown History Levocetirizine Dihydrochloride 5 mg PO QHS 08/11/18 08/11/18 Unknown History [Xyzal] Metoprolol [Lopressor TAB] 50 mg PO QDAY 08/11/18 08/11/18 Unknown History Omeprazole 40 mg PO QAM 08/11/18 08/11/18 Unknown History Omeprazole 40 mg PO QDAY 08/11/18 08/11/18 Unknown History Pantoprazole [Protonix] 40 mg PO QDAY 08/11/18 08/11/18 Unknown History Pravastatin [Pravachol] 20 mg PO QHS 08/11/18 08/11/18 Unknown History Sertraline [Zoloft] 50 mg PO QDAY 08/11/18 08/11/18 Unknown History Sodium Bicarbonate 650 mg PO BID 08/11/18 08/11/18 Unknown History Sodium Bicarbonate 650 mg PO BID 08/11/18 08/11/18 Unknown History Temazepam 30 mg PO QHS 08/11/18 08/11/18 Unknown History Temazepam [Restoril] 15 mg PO QHS 08/11/18 08/11/18 Unknown History cycloSPORINE [SandIMMUNE] 50 mg PO QHS 08/11/18 08/11/18 Unknown History cycloSPORINE [SandIMMUNE] 50 mg PO QHS 08/11/18 08/11/18 Unknown History metroNIDAZOLE [Flagyl] 500 mg PO BID 08/11/18 08/11/18 Unknown History predniSONE [Deltasone] 7.5 mg PO DAILY 08/11/18 08/11/18 Unknown History predniSONE [Deltasone] 7.5 mg PO QDAY 08/11/18 08/11/18 Unknown History cycloSPORINE [SandIMMUNE] 25 mg PO TID 08/12/18 08/12/18 08/07/18 History 25 mg Active Medications: Generic Name Dose Route Start Last Admin Trade Name Freq PRN Reason Stop Dose Admin Acetaminophen 650 mg 08/11/18 20:58 Tylenol PO Q4H PRN Pain MILD(1-3)/Fever >100.5/HAYNES Albuterol 2.5 mg 08/11/18 20:58 08/13/18 11:28 Proventil IH 2.5 mg Q3HRT PRN Administration Shortness Of Breath Allopurinol 100 mg 08/12/18 10:00 08/13/18 09:11 Zyloprim PO 100 mg DAILY CARLOS Administration Arformoterol Tartrate 15 mcg 08/13/18 09:45 08/13/18 09:51 Brovana Nebu IH Not Given Q12HRT CARLOS Budesonide 0.5 mg 08/13/18 10:00 08/13/18 09:57 Pulmicort IH Not Given Q12HRT CARLOS Cyclosporine 50 mg 08/12/18 22:00 08/12/18 21:29 Sandimmune PO 50 mg QHS CARLOS Administration Cyclosporine 75 mg 08/13/18 10:00 08/13/18 09:11 Sandimmune PO 75 mg QAM CARLOS Administration Docusate Sodium 100 mg 08/11/18 22:00 08/13/18 09:12 Colace PO 100 mg BID CARLOS Administration Ceftriaxone Sodium 1 gm in 50 mls @ 100 mls/hr 08/12/18 10:00 08/13/18 11:55 Rocephin/Ns 1 Gm/50 Ml IV Not Given Q24HR CARLOS Protocol Azithromycin 500 mg/ Sodium 250 mls @ 250 mls/hr 08/13/18 10:00 08/13/18 11:56 Chloride IV Not Given Q24HR CARLOS Metoprolol Tartrate 50 mg 08/12/18 10:00 08/13/18 09:13 Lopressor PO 50 mg QDAY CARLOS Administration Pantoprazole Sodium 40 mg 08/12/18 10:00 08/13/18 09:13 Protonix PO 40 mg QDAY CARLOS Administration Pravastatin Sodium 20 mg 08/12/18 22:00 08/12/18 21:29 Pravachol PO 20 mg QHS CARLOS Administration Prednisone 7.5 mg 08/12/18 10:00 08/13/18 09:12 Deltasone PO 7.5 mg DAILY CARLOS Administration Sertraline HCl 50 mg 08/13/18 14:00 08/13/18 14:17 Zoloft PO 50 mg QDAY CARLOS Administration Sodium Chloride 10 ml 08/11/18 22:00 08/13/18 11:56 Sodium Chloride Flush Syringe 10 Ml IV Not Given BID CARLOS Sodium Chloride 10 ml 08/11/18 20:58 Sodium Chloride Flush Syringe 10 Ml IV PRN PRN LINE FLUSH Temazepam 15 mg 08/12/18 22:00 08/12/18 21:28 Restoril PO 15 mg QHS CARLOS Administration
[2018-08-13] MEDS ORDERED: ATIVAN PO STA (14:57)
--- NOTE | 2018-08-13 19:08 | Consultation ---
History of Present Illness - Reason for Consult Consult date: 08/13/18 Reason for consult: psychiatric evaluation - Chief Complaint Chief complaint: "I'm fine now." - History of Present Psychiatric Illness 62-year-old white female with history of COPD/bronchiectasis, CKD 4 status post renal transplant (1991) not on hemodialysis but has a left arm AVF, who presented to the ER from [facility] for fever and cough. She also had a UTI. Psychiatry was consulted to see the patient for medication management. She was also on 1013 from [facility]. She stated that she has a hx of depression and took Zoloft from her PCP for years. She reportedly is mentally stable prior to becoming septic. She initally went to [facility] where she was treated for infection, determined to have encephalopathy, and developed psycho tic symptoms. She then expressed suicidal ideation, which her daughter attributes to seroquel. She was transferred to [facility] but was determined to have acute medical needs. She was then transferred to [facility]. Ms. Chavez denies suicidal ideation and denies homicidal ideation. Her daughter says she had an episode of confusion last night but has been lucid the whole day today. She is eating and sleep has improved. She is A& Ox 4, and was able to complete a MMSE. Medications and Allergies Allergies Allergy/AdvReac Type Severity Reaction Status Date / Time ropinirole Allergy Unknown Verified 08/11/18 17:48 Home Medications Medication Instructions Recorded Confirmed Last Taken Type Allopurinol [Zyloprim] 100 mg PO DAILY 08/11/18 08/11/18 Unknown History Allopurinol [Zyloprim] 100 mg PO QDAY 08/11/18 08/11/18 Unknown History Levocetirizine Dihydrochloride 5 mg PO QHS 08/11/18 08/11/18 Unknown History [Xyzal] Metoprolol [Lopressor TAB] 50 mg PO QDAY 08/11/18 08/11/18 Unknown History Omeprazole 40 mg PO QAM 08/11/18 08/11/18 Unknown History Omeprazole 40 mg PO QDAY 08/11/18 08/11/18 Unknown History Pantoprazole [Protonix] 40 mg PO QDAY 08/11/18 08/11/18 Unknown History Pravastatin [Pravachol] 20 mg PO QHS 08/11/18 08/11/18 Unknown History Sertraline [Zoloft] 50 mg PO QDAY 08/11/18 08/11/18 Unknown History Sodium Bicarbonate 650 mg PO BID 08/11/18 08/11/18 Unknown History Sodium Bicarbonate 650 mg PO BID 08/11/18 08/11/18 Unknown History Temazepam 30 mg PO QHS 08/11/18 08/11/18 Unknown History Temazepam [Restoril] 15 mg PO QHS 08/11/18 08/11/18 Unknown History cycloSPORINE [SandIMMUNE] 50 mg PO QHS 08/11/18 08/11/18 Unknown History cycloSPORINE [SandIMMUNE] 50 mg PO QHS 08/11/18 08/11/18 Unknown History metroNIDAZOLE [Flagyl] 500 mg PO BID 08/11/18 08/11/18 Unknown History predniSONE [Deltasone] 7.5 mg PO DAILY 08/11/18 08/11/18 Unknown History predniSONE [Deltasone] 7.5 mg PO QDAY 08/11/18 08/11/18 Unknown History cycloSPORINE [SandIMMUNE] 25 mg PO TID 08/12/18 08/12/18 08/07/18 History 25 mg Active Meds: Active Medications Acetaminophen (Tylenol) 650 mg PO Q4H PRN PRN Reason: Pain MILD(1-3)/Fever >100.5/HAYNES Albuterol (Proventil) 2.5 mg IH Q3HRT PRN PRN Reason: Shortness Of Breath Last Admin: 08/13/18 11:28 Dose: 2.5 mg Documented by: Allopurinol (Zyloprim) 100 mg PO DAILY [facility] Last Admin: 08/13/18 09:11 Dose: 100 mg Documented by: Arformoterol Tartrate (Brovana Nebu) 15 mcg IH Q12HRT [facility] Last Admin: 08/13/18 09:51 Dose: Not Given Documented by: Budesonide (Pulmicort) 0.5 mg IH Q12HRT [facility] Last Admin: 08/13/18 09:57 Dose: Not Given Documented by: Cyclosporine (Sandimmune) 50 mg PO QHS [facility] Last Admin: 08/12/18 21:29 Dose: 50 mg Documented by: Cyclosporine (Sandimmune) 75 mg PO QAM [facility] Last Admin: 08/13/18 09:11 Dose: 75 mg Documented by: Docusate Sodium (Colace) 100 mg PO BID [facility] Last Admin: 08/13/18 09:12 Dose: 100 mg Documented by: Ceftriaxone Sodium (Rocephin/Ns 1 Gm/50 Ml) 1 gm in 50 mls @ 100 mls/hr IV Q24HR [facility]; Protocol Last Admin: 08/13/18 17:29 Dose: 100 mls/hr Documented by: Azithromycin 500 mg/ Sodium (Chloride) 250 mls @ 250 mls/hr IV Q24HR [facility] Last Admin: 08/13/18 17:30 Dose: 250 mls/hr Documented by: Metoprolol Tartrate (Lopressor) 50 mg PO QDAY [facility] Last Admin: 08/13/18 09:13 Dose: 50 mg Documented by: Pantoprazole Sodium (Protonix) 40 mg PO QDAY [facility] Last Admin: 08/13/18 09:13 Dose: 40 mg Documented by: Pravastatin Sodium (Pravachol) 20 mg PO QHS [facility] Last Admin: 08/12/18 21:29 Dose: 20 mg Documented by: Prednisone (Deltasone) 7.5 mg PO DAILY [facility] Last Admin: 08/13/18 09:12 Dose: 7.5 mg Documented by: Sertraline HCl (Zoloft) 50 mg PO QDAY [facility] Last Admin: 08/13/18 14:17 Dose: 50 mg Documented by: Sodium Chloride (Sodium Chloride Flush Syringe 10 Ml) 10 ml IV BID [facility] Last Admin: 08/13/18 17:30 Dose: 10 ml Documented by: Sodium Chloride (Sodium Chloride Flush Syringe 10 Ml) 10 ml IV PRN PRN PRN Reason: LINE FLUSH Temazepam (Restoril) 15 mg PO QHS [facility] Last Admin: 08/12/18 21:28 Dose: 15 mg Documented by: Past psychiatric history - Past Medical History Past Surgical History: Other (kidney transplant) - past Psychiatric treatment and history Psych: Depression psychiatric treatment history: zoloft for years by PCP for depression no previous hospitalization no suicide attempts - Social History Social history: other (remote history of alcohol dependence. none currently. no illicit substance use) Mental Status Exam - Vital signs Last Vital Signs Temp 98.7 F 08/13/18 17:31 Pulse 83 08/13/18 17:31 Resp 20 08/13/18 17:31 BP 170/67 08/13/18 17:31 Pulse Ox 96 08/13/18 17:31 - Exam Orientation: time, place, person Affect: flat Mood: calm, relaxed Thought content: other (no SI/HI) Thought Process: Intact Perceptions: none Speech: normal rate and pattern Concentration: focused Motor activity: normal Level of consciousness: alert Memory: Intact Sleep Symptoms: None Interaction: cooperative Mini mental status exam(if necessary): 24-30 Results Result Diagrams: 08/14/18 08:04 08/14/18 08:04 Abnormal lab results 08/12/18 08/12/18 08/13/18 Range/Units 20:18 20:18 07:01 WBC 4.2 L 2.3 L (4.5-11.0) K/mm3 RBC 2.28 L 2.18 L (3.65-5.03) M/mm3 Hgb 7.4 L 7.0 L (10.1-14.3) gm/dl Hct 21.2 L D 20.7 L (30.3-42.9) % MCH 33 H (28-32) pg MCHC 35 H (30-34) % RDW 18.1 H 18.1 H (13.2-15.2) % Plt Count 59 L 60 L (140-440) K/mm3 Lymph % (Auto) 7.1 L (13.4-35.0) % Lymph # 0.3 L (1.2-5.4) K/mm3 Seg Neutrophils % 88.6 H (40.0-70.0) % Sodium 134 L (137-145) mmol/L Carbon Dioxide 20 L (22-30) mmol/L BUN 23 H (7-17) mg/dL Creatinine 2.3 H (0.7-1.2) mg/dL Glucose 107 H (65-100) mg/dL POC Glucose (70-105) Calcium 7.3 L (8.4-10.2) mg/dL 08/13/18 08/13/18 08/13/18 Range/Units 07:01 11:27 17:30 WBC (4.5-11.0) K/mm3 RBC (3.65-5.03) M/mm3 Hgb (10.1-14.3) gm/dl Hct (30.3-42.9) % MCH (28-32) pg MCHC (30-34) % RDW (13.2-15.2) % Plt Count (140-440) K/mm3 Lymph % (Auto) (13.4-35.0) % Lymph # (1.2-5.4) K/mm3 Seg Neutrophils % (40.0-70.0) % Sodium (137-145) mmol/L Carbon Dioxide 21 L (22-30) mmol/L BUN 23 H (7-17) mg/dL Creatinine 2.6 H (0.7-1.2) mg/dL Glucose (65-100) mg/dL POC Glucose 109 H 153 H (70-105) Calcium 7.0 L (8.4-10.2) mg/dL All other labs normal. Assessment and Plan Assessment and plan: Impression: Hx of depression. Today the patient was calm and cooperative during the assessment. CR 2.6, Nephro is following. acute encephalopathy---resolving Recommendation/Plan: Rescind 1013. Continue home medication Zoloft 50 mg Po daily for depression. Dispo: The patient can follow up with her PCP for medication management for depression staffed with Dr. Blade Sutton.
[2018-08-13] MEDS: PRAVACHOL PO SCH (21:16)
[2018-08-13] MEDS: RESTORIL PO SCH (21:18)
[2018-08-14] MEDS: PROVENTIL IH PRN ×2 (02:30→17:13)
[2018-08-14] MEDS: PULMICORT IH SCH ×2 (07:55→20:27)
[2018-08-14] MEDS: BROVANA NEBU IH SCH ×2 (07:55→20:27)
[2018-08-14 08:25] LABS: Hematocrit 20.1 % (30.3-42.9); Hemoglobin 6.7 gm/dl (10.1-14.3); Mean Corpuscular HGB Conc 33 % (30-34); Mean Corpuscular Volume 95 fl (79-97); Red Blood Count 2.12 M/mm3 (3.65-5.03); Red Cell Distribution Width 18.4 % (13.2-15.2)
[2018-08-14 08:32] LABS: Platelet Count 59 K/mm3 (140-440)
[2018-08-14 08:41] LABS: Calcium 7.1 mg/dL (8.4-10.2)
--- NOTE | 2018-08-14 09:37 | Progress Note ---
Subjective Interval history: Patient was seen today for follow-up on multiple renal related issues Events of this hospitalization noted Patient denies having any chest pain pressure or shortness of breath Vitals labs intake output medications were reviewed Social history: Reviewed Allergies: Reviewed Family history: Reviewed Physical examination HEENT: Oral mucosa moist no pallor or icterus Neck: Supple no JVD Chest: Clear to auscultation anteriorly CVS: Regular rate and rhythm S1 and S2 heard Abdomen: Soft nontender no suprapubic masses no organomegaly appreciable Extremity: Dry skin less than 1+ peripheral edema Musculoskeletal: No joint effusion noted in knees and ankle Neurological: Alert awake Dermatology: No petechial rashes Psychiatry: No evidence of any agitation and aggression noted Assessment and plan; Status post diseased renal transplant 1991, history of chronic allograft nephropathy baseline creatinine is usually around 2.8 per patient Continue the current dose of cyclosporine and prednisone which has not been ch anged Will order for a kidney ultrasonogram Patient will need to follow-up with Dr. Chavira in the outpatient setting Due to pancytopenia patient was advised to follow-up with hematology Mild hypocalcemia patient can be considered for calcium replacement 500 twice a day Will also need a vitamin D panel in outpatient setting, Urine culture has been noted to be negative so far blood culture has been negative for last 48 hours Chest x-ray could not rule out any possibility of lung infiltrate Pyuria hematuria rule out urinary tract infection patient admitted with fever mild tachycardia rule out sepsis History of pancytopenia, patient was advised to follow-up with hematology made aware about the degree and severity of pancytopenia Patient was adequately counseled and educated regarding multiple renal related issues Pertinent lab findings were discussed with patient and patient does exhibit good understanding of renal issues. We'll continue to follow and make recommendation from renal standpoint Objective - Vital Signs Vital signs: Vital Signs - 12hr 08/14/18 08/14/18 08/14/18 02:35 05:41 07:54 Temperature 98.5 F Pulse Rate 89 Pulse Rate [ 89 96 H Bilateral Upper Lobe] Respiratory 22 Rate Respiratory 20 20 Rate [Bilateral Upper Lobe] Blood Pressure 168/61 O2 Sat by Pulse 98 Oximetry 08/14/18 08:10 Temperature Pulse Rate Pulse Rate [ 107 H Bilateral Upper Lobe] Respiratory Rate Respiratory 18 Rate [Bilateral Upper Lobe] Blood Pressure O2 Sat by Pulse Oximetry - Lab 08/14/18 08:04 08/14/18 08:04 Most recent lab results Calcium 7.1 mg/dL (8.4-10.2) L 08/14/18 08:04 Medications & Allergies - Medications Allergies/Adverse Reactions: Allergies ropinirole Allergy (Verified 08/11/18 17:48) Unknown hallucinations Home Medications: Home Medications Medication Instructions Recorded Confirmed Last Taken Type Allopurinol [Zyloprim] 100 mg PO DAILY 08/11/18 08/11/18 Unknown History Allopurinol [Zyloprim] 100 mg PO QDAY 08/11/18 08/11/18 Unknown History Levocetirizine Dihydrochloride 5 mg PO QHS 08/11/18 08/11/18 Unknown History [Xyzal] Metoprolol [Lopressor TAB] 50 mg PO QDAY 08/11/18 08/11/18 Unknown History Omeprazole 40 mg PO QAM 08/11/18 08/11/18 Unknown History Omeprazole 40 mg PO QDAY 08/11/18 08/11/18 Unknown History Pantoprazole [Protonix] 40 mg PO QDAY 08/11/18 08/11/18 Unknown History Pravastatin [Pravachol] 20 mg PO QHS 08/11/18 08/11/18 Unknown History Sertraline [Zoloft] 50 mg PO QDAY 08/11/18 08/11/18 Unknown History Sodium Bicarbonate 650 mg PO BID 08/11/18 08/11/18 Unknown History Sodium Bicarbonate 650 mg PO BID 08/11/18 08/11/18 Unknown History Temazepam 30 mg PO QHS 08/11/18 08/11/18 Unknown History Temazepam [Restoril] 15 mg PO QHS 08/11/18 08/11/18 Unknown History cycloSPORINE [SandIMMUNE] 50 mg PO QHS 08/11/18 08/11/18 Unknown History cycloSPORINE [SandIMMUNE] 50 mg PO QHS 08/11/18 08/11/18 Unknown History metroNIDAZOLE [Flagyl] 500 mg PO BID 08/11/18 08/11/18 Unknown History predniSONE [Deltasone] 7.5 mg PO DAILY 08/11/18 08/11/18 Unknown History predniSONE [Deltasone] 7.5 mg PO QDAY 08/11/18 08/11/18 Unknown History cycloSPORINE [SandIMMUNE] 25 mg PO TID 08/12/18 08/12/18 08/07/18 History 25 mg Active Medications: Generic Name Dose Route Start Last Admin Trade Name Freq PRN Reason Stop Dose Admin Acetaminophen 650 mg 08/11/18 20:58 Tylenol PO Q4H PRN Pain MILD(1-3)/Fever >100.5/HAYNES Albuterol 2.5 mg 08/11/18 20:58 08/14/18 02:30 Proventil IH 2.5 mg Q3HRT PRN Administration Shortness Of Breath Allopurinol 100 mg 08/12/18 10:00 08/13/18 09:11 Zyloprim PO 100 mg DAILY CARLOS Administration Arformoterol Tartrate 15 mcg 08/13/18 09:45 08/14/18 07:55 Brovana Nebu IH 15 mcg Q12HRT CARLOS Administration Budesonide 0.5 mg 08/13/18 10:00 08/14/18 07:55 Pulmicort IH 0.5 mg Q12HRT CARLOS Administration Cyclosporine 50 mg 08/12/18 22:00 08/13/18 21:15 Sandimmune PO 50 mg QHS CARLOS Administration Cyclosporine 75 mg 08/13/18 10:00 08/13/18 09:11 Sandimmune PO 75 mg QAM CARLOS Administration Docusate Sodium 100 mg 08/11/18 22:00 08/13/18 21:15 Colace PO Not Given BID CARLOS Ceftriaxone Sodium 1 gm in 50 mls @ 100 mls/hr 08/12/18 10:00 08/13/18 17:29 Rocephin/Ns 1 Gm/50 Ml IV 100 mls/hr Q24HR CARLOS Administration Protocol Azithromycin 500 mg/ Sodium 250 mls @ 250 mls/hr 08/13/18 10:00 08/13/18 17:30 Chloride IV 250 mls/hr Q24HR CARLOS Administration Metoprolol Tartrate 50 mg 08/12/18 10:00 08/13/18 09:13 Lopressor PO 50 mg QDAY CARLOS Administration Pantoprazole Sodium 40 mg 08/12/18 10:00 08/13/18 09:13 Protonix PO 40 mg QDAY CARLOS Administration Pravastatin Sodium 20 mg 08/12/18 22:00 08/13/18 21:16 Pravachol PO 20 mg QHS CARLOS Administration Prednisone 7.5 mg 08/12/18 10:00 08/13/18 09:12 Deltasone PO 7.5 mg DAILY CARLOS Administration Sertraline HCl 50 mg 08/13/18 14:00 08/13/18 14:17 Zoloft PO 50 mg QDAY CARLOS Administration Sodium Chloride 10 ml 08/11/18 22:00 08/13/18 21:17 Sodium Chloride Flush Syringe 10 Ml IV Not Given BID CARLOS Sodium Chloride 10 ml 08/11/18 20:58 Sodium Chloride Flush Syringe 10 Ml IV PRN PRN LINE FLUSH Temazepam 15 mg 08/12/18 22:00 08/13/18 21:18 Restoril PO 15 mg QHS CARLOS Administration
[2018-08-14] MEDS: SandIMMUNE PO SCH ×2 (11:00→22:09)
[2018-08-14] MEDS: DELTASONE PO SCH (11:01)
[2018-08-14] MEDS: ZYLOPRIM PO SCH (11:01)
[2018-08-14] MEDS: PROTONIX PO SCH (11:01)
[2018-08-14] MEDS: LOPRESSOR PO SCH (11:02)
[2018-08-14] MEDS: ZOLOFT PO SCH (11:02)
[2018-08-14] MEDS: ROCEPHIN/NS 1 GM/50 ML 1 GM/50 ML BAG IV SCH (11:02)
[2018-08-14] MEDS: SODIUM CHLORIDE FLUSH SYRINGE 10 ML IV SCH ×2 (11:03→22:15)
[2018-08-14] MEDS: ZITHROMAX 500 MG in NACL 0.9% 250ML 250 ML IV SCH (11:03)
--- NOTE | 2018-08-14 13:23 | Progress Note ---
Subjective - Reason for Consult Consult date: 08/14/18 Reason for consult: Psychiatry Follow-up - Chief Complaint Chief complaint: "Hello" 2-year-old white female who presented to the ER from [facility] for fever and cough. Psychiatry was consulted to see the patient fro medication management. She stated that she has a hx of depression and took Zoloft that was confirmed by her daughter Ashley Carter who was at t he bedside. The patient was able to state her , past/current [place] Presidents, and her location. She stated that the Zoloft was prescribed by her PCP. Ms Carter stated that her mother was sick and shouldn't have been referred to [facility]. She denies any previous suicide attempts by the patient in the past. The patient denies SI/HI's,AVh's, and depression. She stated that she prefer to see her PCP for all her medical concerns. Mental Status Exam - Vital signs Last Vital Signs Temp 32.1 F L 08/14/18 11:21 Pulse 100 H 08/14/18 11:21 Resp 28 H 08/14/18 11:21 BP 173/71 08/14/18 11:21 Pulse Ox 97 08/14/18 11:21 - Exam Narrative exam: MSE: Appearance: calm, cooperative Behavior: regular eye contact Speech: regular rate and tone Mood: "okay" Affect: congruent to mood Thought Process: circumstantial Thought Content: denies SI/HI's and AVH's Motor Activity: sitting up in bed Cognition: A/O x3 Insight: fair Judgment: fair Assessment and Plan Impression: Hx of depression. Today the patient was calm and cooperative during the assessment. CR 2.6, Nephro is following. Recommendation/Plan: Rescind 1013. Continue home medication Zoloft 50 mg Po daily fro depression. Discussed possible sucidality/medication induced shine with lai velarde and her daughter, they both verbalized understanding. Psy sign off. Dispo: The patient can follow up with her PCP for outpatient psy services. Will staff with Dr. Blade Sutton.
--- NOTE | 2018-08-14 13:24 | Progress Note ---
Assessment and Plan Assessment and plan: Patient is a 62-year-old woman with history of COPD/bronchiectasis, CKD 4 status post renal transplant (1991) not on hemodialysis but has a left arm AVF in anticipation for HD in the future, hypertension and AOCD who presented to PSYCHIATRIC ED from [facility] (where she was currently 1013) with FEVERs. Initially, patient was admitted to [facility] for pneumonia and developed psychosis in hospital; therefore, discharged to [facility] near this Hospital. She has been admitted for UTI with sepsis causing Encephalopathy. Drop in H/H, with hemoglobin 6.7 and low plt: d/w Entry Level Software Engineer, Dr. Gallo, who instructed me to give Procrit 20,000 subq x 1, ordered folate/vit b12/iron/ferritn level and Dr. Radha tavares records Sepsis UTI, poa: treat with abx, urine cultures contaminated, IVFs Acute metabolic encephalopahty, poa due to above Hyponatremia, dehydration: treat with IVFs CKD 4 s/p renal transplant 1991: continue home Continue cyclosporine and oral steroid, Nephrology consulted, input noted AOCD due to chronic renal failure: monitor cbc closely Depression with psychosis: mental health consulted, 1013 rescinded on Tuesday Hypertension: low salt diet Mild COPD/asthma exacerbation: prn nebs GERD: ppi HLD: statin Bronchospasm; ordered neb but she is refusing, counseling done poor IV access: Mildline placed 08/13/18 RUL/RML aspiration pneumonia: restarted iv rocephin and azithromycin, she's refused peripheral iv line because they couldn't get after many needle sticks, so midline placed. ordered CT chest for unresolving RML PNA from [facility]. Diarrhea: stopped colace, and ordered FOBT DVT ppx reviewed scd only due to low blood counts full code Hbg 6.7 FOBT pending Iron, ferritin, vit b12 and folate pending CT chest w/o contrast pending, cr 2.6, cycolsporine levels pending also Dr. Garcia records requested CCT 32 minutes History Interval history: Patient was seen and examined. Follow-up on current diagnosis of AMS. No overnight events reported to me. Patient denies any chest pain, shortness breath, nausea/vomiting or severe headaches. Imaging, nursing note, chart, labs and old chart reviewed. Discussed with patient. I sat down and d/w patient and daughter Keya at bedside. Hospitalist Physical - Physical exam Narrative exam: Gen: WDWN, NAD, Awake, Alert, Orientated x 2, missed location, she thought she was at [facility] HEENT: NCAT, EOMI, PERRL, OP Clear Neck: supple, no adenopathy, no thyromegaly, no JVD CVS/Heart: RRR, normal S1S2, pulses present bilaterally Chest/Lungs: CTA B, Symmetrical chest expansion, good air entry bilaterally GI/Abdomen: soft, NTND, good bowel sounds, no guarding or rebound /Bladder: no suprapubic tenderness, no CVA or paraspinal tenderness Extermity/Skin: no c/c/e, no obvious rash, many seborrheic dermatitis on face MSK: FROM x 4 Neuro: CN 2-12 grossly intact, no new focal deficits Psych: calm but unpleasant to me, when I ask a question she doesn't respond but then the daughter will ask the same question and she responds. Refused to shake my hands - Constitutional Vitals: Temp Pulse Resp BP Pulse Ox 32.1 F L 100 H 28 H 173/71 97 08/14/18 11:21 08/14/18 11:21 08/14/18 11:21 08/14/18 11:21 08/14/18 11:21 Results - Labs CBC & Chem 7: 08/14/18 08:04 08/14/18 08:04 Labs: Laboratory Last Values WBC 2.5 K/mm3 (4.5-11.0) L 08/14/18 08:04 RBC 2.12 M/mm3 (3.65-5.03) L 08/14/18 08:04 Hgb 6.7 gm/dl (10.1-14.3) L 08/14/18 08:04 Hct 20.1 % (30.3-42.9) L 08/14/18 08:04 MCV 95 fl (79-97) 08/14/18 08:04 MCH 32 pg (28-32) 08/14/18 08:04 MCHC 33 % (30-34) 08/14/18 08:04 RDW 18.4 % (13.2-15.2) H 08/14/18 08:04 Plt Count 59 K/mm3 (140-440) L 08/14/18 08:04 Lymph % (Auto) 7.1 % (13.4-35.0) L 08/12/18 20:18 [place] % (Auto) 4.0 % (0.0-7.3) 08/12/18 20:18 Eos % (Auto) 0.1 % (0.0-4.3) 08/12/18 20:18 Baso % (Auto) 0.2 % (0.0-1.8) 08/12/18 20:18 Lymph # 0.3 K/mm3 (1.2-5.4) L 08/12/18 20:18 [place] # 0.2 K/mm3 (0.0-0.8) 08/12/18 20:18 Eos # 0.0 K/mm3 (0.0-0.4) 08/12/18 20:18 Baso # 0.0 K/mm3 (0.0-0.1) 08/12/18 20:18 Seg Neutrophils % 88.6 % (40.0-70.0) H 08/12/18 20:18 Seg Neutrophils # 3.7 K/mm3 (1.8-7.7) 08/12/18 20:18 Sodium 142 mmol/L (137-145) 08/14/18 08:04 Potassium 4.1 mmol/L (3.6-5.0) 08/14/18 08:04 Chloride 106.2 mmol/L (98-107) 08/14/18 08:04 Carbon Dioxide 20 mmol/L (22-30) L 08/14/18 08:04 20 mmol/L 08/14/18 08:04 BUN 20 mg/dL (7-17) H 08/14/18 08:04 2.6 mg/dL (0.7-1.2) H 08/14/18 08:04 Estimated GFR 23 ml/min 08/14/18 08:04 8 % 08/14/18 08:04 Glucose 88 mg/dL (65-100) 08/14/18 08:04 POC Glucose 194 (70-105) H 08/14/18 11:24 5.9 % (4-6) 08/11/18 23:19 Lactic Acid 1.30 mmol/L (0.7-2.0) 08/11/18 19:32 Calcium 7.1 mg/dL (8.4-10.2) L 08/14/18 08:04 0.70 mg/dL (0.1-1.2) 08/11/18 16:59 AST 20 units/L (5-40) 08/11/18 16:59 ALT 10 units/L (7-56) 08/11/18 16:59 85 units/L (35-129) 08/11/18 16:59 5.6 g/dL (6.3-8.2) L 08/11/18 16:59 3.0 g/dL (3.9-5) L 08/11/18 16:59 1.2 % 08/11/18 16:59 Yellow (Yellow) 08/11/18 18:36 Clear (Clear) 08/11/18 18:36 8.0 (5.0-7.0) H 08/11/18 18:36 Ur Specific [place] 1.010 (1.003-1.030) 08/11/18 18:36 100 mg/dl mg/dL (Negative) 08/11/18 18:36 Neg mg/dL (Negative) 08/11/18 18:36 Neg mg/dL (Negative) 08/11/18 18:36 Mod (Negative) 08/11/18 18:36 Neg (Negative) 08/11/18 18:36 Neg (Negative) 08/11/18 18:36 < 2.0 mg/dL (<2.0) 08/11/18 18:36 Ur Leukocyte Esterase Mod (Negative) 08/11/18 18:36 75.0 /HPF (0.0-6.0) H 08/11/18 18:36 71.0 /HPF (0.0-6.0) 08/11/18 18:36 U Epithel Cells (Auto) 2.0 /HPF (0-13.0) 08/11/18 18:36 1+ /HPF 08/11/18 18:36 Active Medications - Current Medications Current Medications: Generic Name Dose Route Start Last Admin Trade Name Freq PRN Reason Stop Dose Admin Acetaminophen 650 mg 08/11/18 20:58 Tylenol PO Q4H PRN Pain MILD(1-3)/Fever >100.5/HAYNES Albuterol 2.5 mg 08/11/18 20:58 08/14/18 02:30 Proventil IH 2.5 mg Q3HRT PRN Administration Shortness Of Breath Allopurinol 100 mg 08/12/18 10:00 08/14/18 11:01 Zyloprim PO 100 mg DAILY CARLOS Administration Arformoterol Tartrate 15 mcg 08/13/18 09:45 08/14/18 07:55 Brovana Nebu IH 15 mcg Q12HRT CARLOS Administration Budesonide 0.5 mg 08/13/18 10:00 08/14/18 07:55 Pulmicort IH 0.5 mg Q12HRT CARLOS Administration Cyclosporine 50 mg 08/12/18 22:00 08/13/18 21:15 Sandimmune PO 50 mg QHS CARLOS Administration Cyclosporine 75 mg 08/13/18 10:00 08/14/18 11:00 Sandimmune PO 75 mg QAM CARLOS Administration Epoetin [place] 20 unit 08/14/18 14:00 Procrit SUB-Q 08/14/18 14:01 ONCE ONE Ceftriaxone Sodium 1 gm in 50 mls @ 100 mls/hr 08/12/18 10:00 08/14/18 11:02 Rocephin/Ns 1 Gm/50 Ml IV 100 mls/hr Q24HR CARLOS Administration Protocol Azithromycin 500 mg/ Sodium 250 mls @ 250 mls/hr 08/13/18 10:00 08/14/18 11:03 Chloride IV 250 mls/hr Q24HR CARLOS Administration Metoprolol Tartrate 50 mg 08/12/18 10:00 08/14/18 11:02 Lopressor PO 50 mg QDAY CARLOS Administration Pantoprazole Sodium 40 mg 08/12/18 10:00 08/14/18 11:01 Protonix PO 40 mg QDAY CARLOS Administration Pravastatin Sodium 20 mg 08/12/18 22:00 08/13/18 21:16 Pravachol PO 20 mg QHS CARLOS Administration Prednisone 7.5 mg 08/12/18 10:00 08/14/18 11:01 Deltasone PO 7.5 mg DAILY CARLOS Administration Sertraline HCl 50 mg 08/13/18 14:00 08/14/18 11:02 Zoloft PO 50 mg QDAY CARLOS Administration Sodium Chloride 10 ml 08/11/18 22:00 08/14/18 11:03 Sodium Chloride Flush Syringe 10 Ml IV 10 ml BID CARLOS Administration Sodium Chloride 10 ml 08/11/18 20:58 Sodium Chloride Flush Syringe 10 Ml IV PRN PRN LINE FLUSH Temazepam 15 mg 08/12/18 22:00 08/13/18 21:18 Restoril PO 15 mg QHS CARLOS Administration Nutrition/Malnutrition Assess - Dietary Evaluation Nutrition/Malnutrition Findings: Nutrition Notes Start: 08/12/18 16:46 Freq: Status: Active Protocol: Document 08/12/18 16:46 RM (Rec: 08/12/18 16:55 RM [id number]) Nutrition Notes Need for Assessment generated from: state appellate 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 [place] 15 points. Pt confused and w/sitter at time of visit. Per pt nurse pt ate 25% of breakfast this morning. Percent of energy/protein needs met: 44%/61% Burn Absent Trauma Absent #1 Nutrition Diagnosis Inadequate oral intake Etiology confusion As Evidenced by Signs and Symptoms pt nurse statement that pt ate 25% of breakfast this morning Is patient on ventilator? No Is Patient Ambulatory and/or Out of Bed No REE-([facility]-confined to bed) 1211.784 Calculation Used for Recommendations [facility] Additional Notes Protein Needs: 32-43g (0.6-0. 8g/kg) Fluid Needs: 1 ml/kcal Nutrition Intervention Change Diet Order: Continue current Add Supplement/Snack (indicate name/kcal Glucerna 1 daily /protein ) Provides kCal: 220 Provides Protein (gm) 10 Goal #1 Meet at least 75% of calorie and protein needs via PO and ONS intakes Anticipated Discharge Needs: Renal diet Follow-Up By: 08/14/18 Additional Comments Follow for PO and ONS intakes
[2018-08-14] MEDS ORDERED: APRESOLINE IV PRN (13:31)
[2018-08-14] MEDS ORDERED: PROCRIT SUB-Q ONE (14:00)
[2018-08-14 15:25] LABS: Iron 26 ug/dL (37-170); Total Iron Binding Capacity 125 mcg/dL (250-450)
--- NOTE | 2018-08-14 16:52 | Cat Scan Report ---
PROCEDURE: CT CHEST WO CON HISTORY: sob, cough Unenhanced CT of the chest was performed and data was reformatted into sagittal and coronal planes. These images demonstrate a masslike density in the superior, lateral aspect of the right upper lobe, sagittal image 232, axial image 45, 1.1 x 1.2 cm. Tumor is not excluded. There is a nodule in the inf erior aspect of the right upper lobe, axial image 55, 0.9 cm There is bibasilar dependent consolidation which is likely atelectasis. There are trace bilateral ple ural effusions. There is coronary artery calcification. There is some wall thickening of distal esophagus which is likely esophagitis. The spleen is enlarged at 15.6 x 4.6 cm. There is perihepatic ascites. IMPRESSION: Right upper lobe masslike lesion. Lung cancer is not excluded. Trace bilateral pleural effusions with bibasilar dependent consolidation likely atelectasis Splenomegaly This document is electronically signed by Delmer Elliott MD., August 14 2018 04:50:28 PM ET
--- NOTE | 2018-08-14 18:19 | Ultrasound Report ---
PROCEDURE: US RENAL TRANSPLANT HISTORY: transplant kidney ultrasound, renal failure FINDINGS: Real-time ultrasound of the right pelvic renal transplant kidney was performed and demonstr ates the kidney measures 10.9 x 5.5 x 5.0 cm. There are small cysts in the transplant kidney, the lar gest of which measures approximately 1.1 cm. There is a calculus suspected in the transplant, 0.3 cm. There is no evidence of hydronephrosis. The right [place] kidney is seen measuring 6.3 x 3.5 x 2.9 cm. It appears small and very echogenic. No right hydronephrosis is seen. There is some fluid between the kidney and the liver. The left [place] kidney measures 9.6 x 4.4 x 4.1 cm and also appears echogenic. There is moderate left hydronephrosis. There is some free fluid between the right kidney and the liver. The urinary bladder appears smooth in contour. IMPRESSION: Right transplant kidney appears normal in size and echotexture Echogenic [place] kidneys consistent with chronic renal disease This document is electronically signed by Delmer Elliott MD., August 14 2018 06:17:22 PM ET
--- NOTE | 2018-08-14 19:15 | Consultation ---
History of Present Illness Consult date: 08/14/18 Reason for consult: dyspnea, cough, pneumonia History of present illness: PULMONARY AND CRITICAL CARE CONSULTATION. DR. CELESTIN THANK YOU FOR ASKING US TO PARTICIPATE IN THE CARE OF THIS PATIENT. This is 62-year-old white female with history of bronchiectasis, ESRD status post renal transplant (1991), hypertension, anemia, who presents to our facility from [facility] (where is is currently 1013) with c/o fever and tachycardia. According to house physcican at [facility] patient had low-grade temperature of 100.3 and elevated heart rate today and was facility and was referred to our facility for further evaluation and treatment. Patient's family is at bedside and states that she was recently admitted and treated for pneumonia at a facility in [facility]. As per family patient became confused and displayed psychosis behavior during her admission at the facility in [place] and was d/c'd to [facility] for treatment. However, they feel her behavior was related to the medication she received. Patients daughter says, she is on cyclosporin for renal transplant. Patient has no history of smoking, alcohol or drug abuse. Patient worked with [email or web address] in the past. Patient allergic to Rpinirole. Patient and has one daughter. Patient presently complaining non productive cough and slight shortness of breath. Denies chest pain. Patient has been loosing weight and apetite is not good. Patient presently on room air and O2 saturation runnin g 99%. Patient CAT scan of chest done 08/14/18 reported Right upper lobe masslike lesion. Lung cancer is not excluded. Trace bilateral pleural effusions with bibasilar dependent consolidation likely atelectasis Splenomegaly. Patients CBC showed Leukopenia, anemia and thrombocytopenia. WBC 2.5. HGB 6.7, Platelets 59,000. BMP: BUN 20, Creatinin 2.6. Past History Past Medical History: COPD, diabetes, hypertension, hyperlipidemia (anxiety and depression), other (Living related donor kidney transplant 1991 at [place]) Past Surgical History: Other (renal transplant 1991) Social history: other (currently 1013 at [facility]) Family history: no significant family history Medications and Allergies Allergies Allergy/AdvReac Type Severity Reaction Status Date / Time ropinirole Allergy Unknown Verified 08/11/18 17:48 Home Medications Medication Instructions Recorded Confirmed Last Taken Type Allopurinol [Zyloprim] 100 mg PO DAILY 08/11/18 08/11/18 Unknown History Allopurinol [Zyloprim] 100 mg PO QDAY 08/11/18 08/11/18 Unknown History Levocetirizine Dihydrochloride 5 mg PO QHS 08/11/18 08/11/18 Unknown History [Xyzal] Metoprolol [Lopressor TAB] 50 mg PO QDAY 08/11/18 08/11/18 Unknown History Omeprazole 40 mg PO QA 08/11/18 08/11/18 Unknown History Omeprazole 40 mg PO QDAY 08/11/18 08/11/18 Unknown History Pantoprazole [Protonix] 40 mg PO QDAY 08/11/18 08/11/18 Unknown History Pravastatin [Pravachol] 20 mg PO QHS 08/11/18 08/11/18 Unknown History Sertraline [Zoloft] 50 mg PO QDAY 08/11/18 08/11/18 Unknown History Sodium Bicarbonate 650 mg PO BID 08/11/18 08/11/18 Unknown History Sodium Bicarbonate 650 mg PO BID 08/11/18 08/11/18 Unknown History Temazepam 30 mg PO QHS 08/11/18 08/11/18 Unknown History Temazepam [Restoril] 15 mg PO QHS 08/11/18 08/11/18 Unknown History cycloSPORINE [SandIMMUNE] 50 mg PO QHS 08/11/18 08/11/18 Unknown History cycloSPORINE [SandIMMUNE] 50 mg PO QHS 08/11/18 08/11/18 Unknown History metroNIDAZOLE [Flagyl] 500 mg PO BID 08/11/18 08/11/18 Unknown History predniSONE [Deltasone] 7.5 mg PO DAILY 08/11/18 08/11/18 Unknown History predniSONE [Deltasone] 7.5 mg PO QDAY 08/11/18 08/11/18 Unknown History cycloSPORINE [SandIMMUNE] 25 mg PO TID 08/12/18 08/12/18 08/07/18 History 25 mg Active Meds: Active Medications Acetaminophen (Tylenol) 650 mg PO Q4H PRN PRN Reason: Pain MILD(1-3)/Fever >100.5/HAYNES Albuterol (Proventil) 2.5 mg IH Q3HRT PRN PRN Reason: Shortness Of Breath Last Admin: 08/14/18 17:13 Dose: 2.5 mg Documented by: Allopurinol (Zyloprim) 100 mg PO DAILY [facility] Last Admin: 08/14/18 11:01 Dose: 100 mg Documented by: Arformoterol Tartrate (Brovana Nebu) 15 mcg IH Q12HRT [facility] Last Admin: 08/14/18 07:55 Dose: 15 mcg Documented by: Budesonide (Pulmicort) 0.5 mg IH Q12HRT [facility] Last Admin: 08/14/18 07:55 Dose: 0.5 mg Documented by: Cyclosporine (Sandimmune) 50 mg PO QHS [facility] Last Admin: 08/13/18 21:15 Dose: 50 mg Documented by: Cyclosporine (Sandimmune) 75 mg PO QAM [facility] Last Admin: 08/14/18 11:00 Dose: 75 mg Documented by: Hydralazine HCl (Apresoline) 10 mg IV Q4HR PRN PRN Reason: HTN SBP>=180 DBP>=110 Ceftriaxone Sodium (Rocephin/Ns 1 Gm/50 Ml) 1 gm in 50 mls @ 100 mls/hr IV Q24HR [facility]; Protocol Last Admin: 08/14/18 11:02 Dose: 100 mls/hr Documented by: Azithromycin 500 mg/ Sodium (Chloride) 250 mls @ 250 mls/hr IV Q24HR [facility] Last Admin: 08/14/18 11:03 Dose: 250 mls/hr Documented by: Metoprolol Tartrate (Lopressor) 50 mg PO QDAY [facility] Last Admin: 08/14/18 11:02 Dose: 50 mg Documented by: Pantoprazole Sodium (Protonix) 40 mg PO QDAY [facility] Last Admin: 08/14/18 11:01 Dose: 40 mg Documented by: Pravastatin Sodium (Pravachol) 20 mg PO QHS [facility] Last Admin: 08/13/18 21:16 Dose: 20 mg Documented by: Prednisone (Deltasone) 7.5 mg PO DAILY [facility] Last Admin: 08/14/18 11:01 Dose: 7.5 mg Documented by: Sertraline HCl (Zoloft) 50 mg PO QDAY [facility] Last Admin: 08/14/18 11:02 Dose: 50 mg Documented by: Sodium Chloride (Sodium Chloride Flush Syringe 10 Ml) 10 ml IV BID [facility] Last Admin: 08/14/18 11:03 Dose: 10 ml Documented by: Sodium Chloride (Sodium Chloride Flush Syringe 10 Ml) 10 ml IV PRN PRN PRN Reason: LINE FLUSH Temazepam (Restoril) 15 mg PO QHS [facility] Last Admin: 08/13/18 21:18 Dose: 15 mg Documented by: Review of Systems All systems: negative Physical Examination Vital signs: Vital Signs Temp Pulse Resp BP Pulse Ox 98.5 F 92 H 18 131/79 98 08/11/18 16:30 08/11/18 16:30 08/11/18 16:30 08/11/18 16:30 08/11/18 16:30 General appearance: no acute distress, alert Eyes: non-icteric ENT: oropharynx moist Neck: supple, no JVD Ascultation: Bilateral: rhonchi Cardiovascular: regular rate and rhythm Gastrointestinal: normoactive bowel sounds, soft, non-tender Integumentary: other (Appears some Erythematous rash) Extremities: no cyanosis, no edema Musculoskeletal: no deformities Gait: poor gait non-focal exam, pupils equal and round, CN II-XII normal anxious Results - Laboratory Findings CBC and BMP: 08/14/18 08:04 08/14/18 08:04 Abnormal lab findings: Abnormal Labs 08/11/18 08/11/18 08/11/18 16:59 16:59 18:36 WBC RBC 2.94 L Hgb 9.1 L Hct 27.5 L MCH MCHC RDW 17.7 H Plt Count 51 L Lymph % (Auto) 6.2 L [place] % (Auto) 7.9 H Lymph # 0.4 L Seg Neutrophils % 85.5 H Sodium 131 L Chloride 94.0 L Carbon Dioxide BUN 23 H Creatinine 2.4 H Glucose 122 H POC Glucose Calcium 8.1 L Iron TIBC Ferritin Total Protein 5.6 L Albumin 3.0 L Urine pH 8.0 H Urine WBC (Auto) 75.0 H 08/12/18 08/12/18 08/12/18 01:34 07:57 12:03 WBC RBC Hgb Hct MCH MCHC RDW Plt Count Lymph % (Auto) [place] % (Auto) Lymph # Seg Neutrophils % Sodium Chloride Carbon Dioxide BUN Creatinine Glucose POC Glucose 195 H 151 H 108 H Calcium Iron TIBC Ferritin Total Protein Albumin Urine pH Urine WBC (Auto) 08/12/18 08/12/18 08/12/18 17:24 20:18 20:18 WBC 4.2 L RBC 2.28 L Hgb 7.4 L Hct 21.2 L D MCH 33 H MCHC 35 H RDW 18.1 H Plt Count 59 L Lymph % (Auto) 7.1 L [place] % (Auto) Lymph # 0.3 L Seg Neutrophils % 88.6 H Sodium 134 L Chloride Carbon Dioxide 20 L BUN 23 H Creatinine 2.3 H Glucose 107 H POC Glucose 111 H Calcium 7.3 L Iron TIBC Ferritin Total Protein Albumin Urine pH Urine WBC (Auto) 08/13/18 08/13/18 08/13/18 07:01 07:01 11:27 WBC 2.3 L RBC 2.18 L Hgb 7.0 L Hct 20.7 L MCH MCHC RDW 18.1 H Plt Count 60 L Lymph % (Auto) [place] % (Auto) Lymph # Seg Neutrophils % Sodium Chloride Carbon Dioxide 21 L BUN 23 H Creatinine 2.6 H Glucose POC Glucose 109 H Calcium 7.0 L Iron TIBC Ferritin Total Protein Albumin Urine pH Urine WBC (Auto) 08/13/18 08/13/18 08/14/18 17:30 20:15 08:04 WBC 2.5 L RBC 2.12 L Hgb 6.7 L Hct 20.1 L MCH MCHC RDW 18.4 H Plt Count 59 L Lymph % (Auto) [place] % (Auto) Lymph # Seg Neutrophils % Sodium Chloride Carbon Dioxide BUN Creatinine Glucose POC Glucose 153 H 161 H Calcium Iron TIBC Ferritin Total Protein Albumin Urine pH Urine WBC (Auto) 08/14/18 08/14/18 08/14/18 08:04 11:24 14:57 WBC RBC Hgb Hct MCH MCHC RDW Plt Count Lymph % (Auto) [place] % (Auto) Lymph # Seg Neutrophils % Sodium Chloride Carbon Dioxide 20 L BUN 20 H Creatinine 2.6 H Glucose POC Glucose 194 H Calcium 7.1 L Iron 26 L TIBC 125 L Ferritin Total Protein Albumin Urine pH Urine WBC (Auto) 08/14/18 14:57 WBC RBC Hgb Hct MCH MCHC RDW Plt Count Lymph % (Auto) [place] % (Auto) Lymph # Seg Neutrophils % Sodium Chloride Carbon Dioxide BUN Creatinine Glucose POC Glucose Calcium Iron TIBC Ferritin 1114.0 H Total Protein Albumin Urine pH Urine WBC (Auto) - Diagnostic Findings Chest x-ray: report reviewed (MILD ATELECTASIS AND EARLY INFILTRATE RIGHT MID LUNG ZONE.), image reviewed CT scan - chest: report reviewed, image reviewed Additional studies: DD/ /23/940 TD/TT: 08/14/1812/23/940 PROCEDURE: CT CHEST WO CON HISTORY: sob, cough Unenhanced CT of the chest was performed and data was reformatted into sagittal and coronal planes. These images demonstrate a masslike density in the superior, lateral aspect of the right upper lobe, sagittal image 232, axial image 45, 1.1 x 1.2 cm. Tumor is not excluded. There is a nodule in the inferior aspect of the right upper lobe, axial image 55, 0.9 cm There is bibasilar dependent consolidation which is likely atelectasis. There are trace bilateral pleural effusions. There is coronary artery calcification. There is some wall thickening of distal esophagus which is likely esophagitis. The spleen is enlarged at 15.6 x 4.6 cm. There is perihepatic ascites. IMPRESSION: Right upper lobe masslike lesion. Lung cancer is not excluded. Trace bilateral pleural effusions with bibasilar dependent consolidation likely atelectasis Splenomegaly This document is electronically signed by Delmer Elliott MD., August 14 2018 04:50:28 PM ET Assessment and Plan his is 62-year-old white female with history of bronchiectasis, ESRD status post renal transplant (1991), hypertension, anemia, who presents to our facility from [facility] (where is is currently 1013) with c/o fever and tachycardia. According to house physcican at [facility] patient had low-grade temperature of 100.3 and elevated heart rate today and was facility and was referred to our facility for further evaluation and treatment. Patient's family is at bedside and states that she was recently admitted and treated for pneumonia at a facility in [facility]. As per family patient became confused and displayed psychosis behavior during her admission at the facility in [place] and was d/c'd to [facility] for treatment. However, they feel her behavior was related to the medication she received. Patients daughter says, she is on cyclosporin for renal transplant. Patient has no history of smoking, alcohol or drug abuse. Patient worked with [employer] and [employer] in the past. Patient allergic to Rpinirole. Patient and has one daughter. Patient presently complaining non productive cough and slight shortness of breath. Denies chest pain. Patient has been loosing weight and apetite is not good. Patient presently on room air and O2 saturation runnin g 99%. Patient CAT scan of chest done 08/14/18 reported Right upper lobe masslike lesion. Lung cancer is not excluded. Trace bilateral pleural effusions with bibasilar dependent consolidation likely atelectasis Splenomegaly. Patients CBC showed Leukopenia, anemia and thrombocytopenia. WBC 2.5. HGB 6.7, Platelets 59,000. BMP: BUN 20, Creatinin 2.6. - Patient Problems (1) Pneumonia Current Visit: Yes Status: Acute Qualifiers: Pneumonia type: due to unspecified organism Laterality: left Lung location: lower lobe of lung Qualified Code(s): J18.1 - Lobar pneumonia, unspecified organism Plan to address problem: Patient is on Zithromax and Ceftrioxone. (2) SOB (shortness of breath) Current Visit: Yes Status: Acute Plan to address problem: Albuterol/atrovent aerosol treatments q 6 hours. Patient is on PO Prednisone. (3) Anemia with low platelet count Current Visit: Yes Status: Acute Plan to address problem: Recommend to consult hematology. (4) Thrombocytopenia Current Visit: Yes Status: Acute Plan to address problem: Recommend to consult Hematology. (5) UTI (urinary tract infection) Current Visit: Yes Status: Acute Qualifiers: Urinary tract infection type: acute cystitis Hematuria presence: with hematuria Qualified Code(s): N30.01 - Acute cystitis with hematuria Plan to address problem: Patient is on ceftrioxone and Zithromax. (6) MAYURI (acute kidney injury) Current Visit: Yes Status: Acute Plan to address problem: Recommend to consult nephrology. Patient has history kidney transplant. (7) Lung density on x-ray Current Visit: Yes Status: Acute Plan to address problem: Lung Density right upper lobe Reported on the CT of chest. According to the patient and patients daughter it was read as Bronchiectasis at [facility] Recommend to get those reports , if possible disc to compare with present CAT scan of chest. Patients daughter said, she will make arrangements to get those results.
[2018-08-14] MEDS: PRAVACHOL PO SCH (22:10)
[2018-08-14] MEDS: RESTORIL PO SCH (22:10)
[2018-08-14] MEDS ORDERED: IMODIUM PO PRN ×2 (22:26→22:30)
[2018-08-14] MEDS ORDERED: NACL 0.9% 250ML 250 ML IV ONE (22:37)
--- NOTE | 2018-08-14 22:37 | Event Note ---
Date: 08/14/18 Patient with diarrhea 5-6 stool so far per nursing staff. CDiff toxin ordered family concerned about dehyration. GENTLE Hydration 250cc ordered. Imodium x4 tabs total till c-diff toxins result available. Place on contact isolation.
--- NOTE | 2018-08-15 05:36 | Event Note ---
Date: 08/14/18 [id number]
--- NOTE | 2018-08-15 05:37 | Event Note ---
Date: 08/14/18 [id number]
--- NOTE | 2018-08-15 08:04 | Hem/Onc Progress Note ---
Assessment and Plan 1. Anemia, leukopenia, thrombocytopenia. The patient is on cyclosporine, this may have a role As per the patient, she has seen Dr. Garcia at [place] and undergone bone marrow biopsy. The patient has been on Aranesp support. At this time, the patient's neutrophil count on admission was not low. 2. Thrombocytopenia, medications cyclosporine related or marrow issue. 3. We will continue erythropoietin support. We will get information from Dr. Garcia. 4. Renal transplant, on cyclosporine. 5. History of pneumonia. 6. Diabetes. hemoglobin was 9 and then it has fallen down. smear evaluation. pt was also on prednisone 7.5 mg daily - Patient Problems (1) Anemia with low platelet count Current Visit: Yes Status: Acute Subjective Date of service: 08/15/18 Principal diagnosis: anemia - low plt Interval history: h/o bruises pt has been on steroids Objective - Constitutional Vitals: Last Vital Signs Temp 99.4 F 08/15/18 06:34 Pulse 93 H 08/15/18 06:34 Resp 22 08/15/18 06:34 BP 170/58 08/15/18 06:34 Pulse Ox 95 08/15/18 06:34 Pain Intensity (0-10): denies any pain General appearance: no acute distress Performance status: 3-limited selfcare - EENT Eyes: EOM intact ENT: clear oral mucosa Lymph node exam: negative cervical - Neck Neck: normal ROM - Respiratory Respiratory effort: Positive: normal Respiratory: bilateral: CTA (anteriorly) - Cardiovascular Heart Sounds: Present: S1 & S2 Extremities: normal temperature - Gastrointestinal General gastrointestinal: Present: soft, non-tender Rectal Exam: deferred - Genitourinary Female genitourinary: Present: deferred - Integumentary Integumentary: warm - Musculoskeletal Musculoskeletal: strength equal bilaterally - Neurologic Neurologic: moves all extremities - Labs Lab Results: Laboratory Results - last 24 hr 08/14/18 08/14/18 08/14/18 07:52 08:04 08:04 WBC 2.5 L RBC 2.12 L Hgb 6.7 L Hct 20.1 L MCV 95 MCH 32 MCHC 33 RDW 18.4 H Plt Count 59 L Sodium 142 Potassium 4.1 Chloride 106.2 Carbon Dioxide 20 L Anion Gap 20 BUN 20 H Creatinine 2.6 H Estimated GFR 23 BUN/Creatinine Ratio 8 Glucose 88 POC Glucose 84 Calcium 7.1 L Iron TIBC Ferritin Vitamin B12 Folate 08/14/18 08/14/18 08/14/18 11:24 14:57 14:57 WBC RBC Hgb Hct MCV MCH MCHC RDW Plt Count Sodium Potassium Chloride Carbon Dioxide Anion Gap BUN Creatinine Estimated GFR BUN/Creatinine Ratio Glucose POC Glucose 194 H Calcium Iron 26 L TIBC 125 L Ferritin 1114.0 H Vitamin B12 Folate 08/14/18 08/14/18 08/14/18 14:57 14:57 17:31 WBC RBC Hgb Hct MCV MCH MCHC RDW Plt Count Sodium Potassium Chloride Carbon Dioxide Anion Gap BUN Creatinine Estimated GFR BUN/Creatinine Ratio Glucose POC Glucose 97 Calcium Iron TIBC Ferritin Vitamin B12 605.3 Folate 11.85 Medications & Allergies - Medications Allergies/Adverse Reactions: Allergies ropinirole Allergy (Verified 08/11/18 17:48) Unknown hallucinations Home Medications: Home Medications Medication Instructions Recorded Confirmed Last Taken Type Allopurinol [Zyloprim] 100 mg PO DAILY 08/11/18 08/11/18 Unknown History Allopurinol [Zyloprim] 100 mg PO QDAY 08/11/18 08/11/18 Unknown History Levocetirizine Dihydrochloride 5 mg PO QHS 08/11/18 08/11/18 Unknown History [Xyzal] Metoprolol [Lopressor TAB] 50 mg PO QDAY 08/11/18 08/11/18 Unknown History Pantoprazole [Protonix] 40 mg PO QDAY 08/11/18 08/11/18 Unknown History Pravastatin [Pravachol] 20 mg PO QHS 08/11/18 08/11/18 Unknown History RX: Omeprazole 40 mg PO QAM 08/11/18 08/11/18 Unknown History RX: Omeprazole 40 mg PO QDAY 08/11/18 08/11/18 Unknown History RX: Sodium Bicarbonate 650 mg PO BID 08/11/18 08/11/18 Unknown History RX: Sodium Bicarbonate 650 mg PO BID 08/11/18 08/11/18 Unknown History RX: Temazepam 30 mg PO QHS 08/11/18 08/11/18 Unknown History RX: predniSONE [Deltasone] 7.5 mg PO DAILY 08/11/18 08/11/18 Unknown History RX: predniSONE [Deltasone] 7.5 mg PO QDAY 08/11/18 08/11/18 Unknown History Sertraline [Zoloft] 50 mg PO QDAY 08/11/18 08/11/18 Unknown History Temazepam [Restoril] 15 mg PO QHS 08/11/18 08/11/18 Unknown History cycloSPORINE [SandIMMUNE] 50 mg PO QHS 08/11/18 08/11/18 Unknown History cycloSPORINE [SandIMMUNE] 50 mg PO QHS 08/11/18 08/11/18 Unknown History metroNIDAZOLE [Flagyl] 500 mg PO BID 08/11/18 08/11/18 Unknown History cycloSPORINE [SandIMMUNE] 25 mg PO TID 08/12/18 08/12/18 08/07/18 History 25 mg Active Medications: Generic Name Dose Route Start Last Admin Trade Name Freq PRN Reason Stop Dose Admin Acetaminophen 650 mg 08/11/18 20:58 Tylenol PO Q4H PRN Pain MILD(1-3)/Fever >100.5/HAYNES Albuterol 2.5 mg 08/11/18 20:58 08/14/18 17:13 Proventil IH 2.5 mg Q3HRT PRN Administration Shortness Of Breath Allopurinol 100 mg 08/12/18 10:00 08/14/18 11:01 Zyloprim PO 100 mg DAILY CARLOS Administration Arformoterol Tartrate 15 mcg 08/13/18 09:45 08/14/18 20:27 Brovana Nebu IH 15 mcg Q12HRT [facility] Administration Budesonide 0.5 mg 08/13/18 10:00 08/14/18 20:27 Pulmicort IH 0.5 mg Q12HRT CARLOS Administration Cyclosporine 50 mg 08/12/18 22:00 08/14/18 22:09 Sandimmune PO 50 mg QHS CARLOS Administration Cyclosporine 75 mg 08/13/18 10:00 08/14/18 11:00 Sandimmune PO 75 mg QAM CARLOS Administration Hydralazine HCl 10 mg 08/14/18 13:31 08/15/18 00:51 Apresoline IV 10 mg Q4HR PRN Administration HTN SBP>=180 DBP>=110 Ceftriaxone Sodium 1 gm in 50 mls @ 100 mls/hr 08/12/18 10:00 08/14/18 11:02 Rocephin/Ns 1 Gm/50 Ml IV 100 mls/hr Q24HR [facility] Administration Protocol Azithromycin 500 mg/ Sodium 250 mls @ 250 mls/hr 08/13/18 10:00 08/14/18 11:03 Chloride IV 250 mls/hr Q24HR [facility] Administration Loperamide HCl 2 mg 08/14/18 22:26 Imodium PO Q2H PRN Diarrhea Metoprolol Tartrate 50 mg 08/12/18 10:00 08/14/18 11:02 Lopressor PO 50 mg QDAY CARLOS Administration Pantoprazole Sodium 40 mg 08/12/18 10:00 08/14/18 11:01 Protonix PO 40 mg QDAY CAR[facility] Administration Pravastatin Sodium 20 mg 08/12/18 22:00 08/14/18 22:10 Pravachol PO 20 mg QHS CARLOS Administration Prednisone 7.5 mg 08/12/18 10:00 08/14/18 11:01 Deltasone PO 7.5 mg DAILY CAR[facility] Administration Sertraline HCl 50 mg 08/13/18 14:00 08/14/18 11:02 Zoloft PO 50 mg QDAY CARLOS Administration Sodium Chloride 10 ml 08/11/18 22:00 08/14/18 22:15 Sodium Chloride Flush Syringe 10 Ml IV 10 ml BID CAR[facility] Administration Sodium Chloride 10 ml 08/11/18 20:58 Sodium Chloride Flush Syringe 10 Ml IV PRN PRN LINE FLUSH Temazepam 15 mg 08/12/18 22:00 08/14/18 22:10 Restoril PO 15 mg QHS [facility] Administration
[2018-08-15 08:12] LABS: Hematocrit 21.4 % (30.3-42.9); Mean Corpuscular HGB Conc 33 % (30-34); Mean Corpuscular Volume 98 fl (79-97); Platelet Count 66 K/mm3 (140-440); Red Blood Count 2.18 M/mm3 (3.65-5.03); Red Cell Distribution Width 18.5 % (13.2-15.2)
[2018-08-15] MEDS: BROVANA NEBU IH SCH ×2 (08:13→20:26)
[2018-08-15] MEDS: PULMICORT IH SCH ×2 (08:13→20:26)
[2018-08-15 08:20] LABS: Calcium 7.2 mg/dL (8.4-10.2)
--- NOTE | 2018-08-15 09:23 | Progress Note ---
Subjective Interval history: Patient was seen today for follow-up on multiple renal related issues Events of this hospitalization noted. Blood pressure remains elevated Patient denies having any chest pain pressure or shortness of breath Vitals labs intake output medications were reviewed Social history: Reviewed Allergies: Reviewed Family history: Reviewed Physical examination HEENT: Oral mucosa moist no pallor or icterus Neck: Supple no JVD Chest: Clear to auscultation anteriorly CVS: Regular rate and rhythm S1 and S2 heard Abdomen: Soft nontender no suprapubic masses no organomegaly appreciable Extremity: Dry skin less than 1+ peripheral edema Musculoskeletal: No joint effusion noted in knees and ankle Neurological: Alert awake Dermatology: No petechial rashes Psychiatry: No evidence of any agitation and aggression noted Assessment and plan; Chronic kidney disease in a patient who has known history of renal transplant recipient since 1991 patient has not been followed by [facility] where she is supposed to do once a year currently she is being followed by 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 Pancytopenia like picture patient was advised to follow-up with hematology oncology Fever likely resulting from lung infiltrate rule out other causes patient presented to hospital with complaints of tachycardia and is currently also being ruled out for sepsis She will continue with the current doses of immunosuppressive which has not been changed Transplant ultrasonogram does not show any evidence ofobstruction, or hydronephrosis but kidneys echogenic suggestive of chronic kidney disease she does have an incidental cyst in the kidney patient was made aware about the findings Hypertension: Requires better control and management current blood pressure between 170 and 180, will increase metoprolol order a renal arterial vascular Doppler, It is quite likely that patient may have renovascular hypertension and hence will consider a trial of spironolactone Urine culture has been noted to be negative so far blood culture has been negative for last 48 hours Chest x-ray could not rule out any possibility of lung infiltrate Pyuria hematuria rule out urinary tract infection patient admitted with fever mild tachycardia rule out sepsis History of pancytopenia, patient was advised to follow-up with hematology made aware about the degree and severity of pancytopenia Patient was adequately counseled and educated regarding multiple renal related issues Pertinent lab findings were discussed with patient and patient does exhibit good understanding of renal issues. We'll continue to follow and make recommendation from renal standpoint Objective - Vital Signs Vital signs: Vital Signs - 12hr 08/15/18 08/15/18 08/15/18 00:15 00:17 00:51 Temperature 98.6 F Pulse Rate 98 H 98 H Pulse Rate [ Anterior Bilateral Throughout] Respiratory 18 17 Rate Respiratory Rate [Anterior Bilateral Throughout] Blood Pressure 183/68 183/68 O2 Sat by Pulse 97 99 Oximetry 08/15/18 08/15/18 08/15/18 06:34 08:13 08:23 Temperature 99.4 F Pulse Rate 93 H Pulse Rate [ 93 H 96 H Anterior Bilateral Throughout] Respiratory 22 Rate Respiratory 20 20 Rate [Anterior Bilateral Throughout] Blood Pressure 170/58 O2 Sat by Pulse 95 Oximetry - Lab 08/15/18 07:40 08/15/18 07:40 Most recent lab results Calcium 7.2 mg/dL (8.4-10.2) L 08/15/18 07:40 Medications & Allergies - Medications Allergies/Adverse Reactions: Allergies ropinirole Allergy (Verified 08/11/18 17:48) Unknown hallucinations Home Medications: Home Medications Medication Instructions Recorded Confirmed Last Taken Type Allopurinol [Zyloprim] 100 mg PO DAILY 08/11/18 08/11/18 Unknown History Allopurinol [Zyloprim] 100 mg PO QDAY 08/11/18 08/11/18 Unknown History Levocetirizine Dihydrochloride 5 mg PO QHS 08/11/18 08/11/18 Unknown History [Xyzal] Metoprolol [Lopressor TAB] 50 mg PO QDAY 08/11/18 08/11/18 Unknown History Omeprazole 40 mg PO QAM 08/11/18 08/11/18 Unknown History Omeprazole 40 mg PO QDAY 08/11/18 08/11/18 Unknown History Pantoprazole [Protonix] 40 mg PO QDAY 08/11/18 08/11/18 Unknown History Pravastatin [Pravachol] 20 mg PO QHS 08/11/18 08/11/18 Unknown History Sertraline [Zoloft] 50 mg PO QDAY 08/11/18 08/11/18 Unknown History Sodium Bicarbonate 650 mg PO BID 08/11/18 08/11/18 Unknown History Sodium Bicarbonate 650 mg PO BID 08/11/18 08/11/18 Unknown History Temazepam 30 mg PO QHS 08/11/18 08/11/18 Unknown History Temazepam [Restoril] 15 mg PO QHS 08/11/18 08/11/18 Unknown History cycloSPORINE [SandIMMUNE] 50 mg PO QHS 08/11/18 08/11/18 Unknown History cycloSPORINE [SandIMMUNE] 50 mg PO QHS 08/11/18 08/11/18 Unknown History metroNIDAZOLE [Flagyl] 500 mg PO BID 08/11/18 08/11/18 Unknown History predniSONE [Deltasone] 7.5 mg PO DAILY 08/11/18 08/11/18 Unknown History predniSONE [Deltasone] 7.5 mg PO QDAY 08/11/18 08/11/18 Unknown History cycloSPORINE [SandIMMUNE] 25 mg PO TID 08/12/18 08/12/18 08/07/18 History 25 mg Active Medications: Generic Name Dose Route Start Last Admin Trade Name Freq PRN Reason Stop Dose Admin Acetaminophen 650 mg 08/11/18 20:58 Tylenol PO Q4H PRN Pain MILD(1-3)/Fever >100.5/HAYNES Albuterol 2.5 mg 08/11/18 20:58 08/14/18 17:13 Proventil IH 2.5 mg Q3HRT PRN Administration Shortness Of Breath Allopurinol 100 mg 08/12/18 10:00 08/14/18 11:01 Zyloprim PO 100 mg DAILY CARLOS Administration Arformoterol Tartrate 15 mcg 08/13/18 09:45 08/15/18 08:13 Brovana Nebu IH 15 mcg Q12HRT CARLOS Administration Budesonide 0.5 mg 08/13/18 10:00 08/15/18 08:13 Pulmicort IH 0.5 mg Q12HRT CARLOS Administration Cyclosporine 50 mg 08/12/18 22:00 08/14/18 22:09 Sandimmune PO 50 mg QHS CARLOS Administration Cyclosporine 75 mg 08/13/18 10:00 08/14/18 11:00 Sandimmune PO 75 mg QAM CARLOS Administration Hydralazine HCl 10 mg 08/14/18 13:31 08/15/18 00:51 Apresoline IV 10 mg Q4HR PRN Administration HTN SBP>=180 DBP>=110 Ceftriaxone Sodium 1 gm in 50 mls @ 100 mls/hr 08/12/18 10:00 08/14/18 11:02 Rocephin/Ns 1 Gm/50 Ml IV 100 mls/hr Q24HR CARLOS Administration Protocol Azithromycin 500 mg/ Sodium 250 mls @ 250 mls/hr 08/13/18 10:00 08/14/18 11:03 Chloride IV 250 mls/hr Q24HR CARLOS Administration Loperamide HCl 2 mg 08/14/18 22:26 Imodium PO Q2H PRN Diarrhea Pantoprazole Sodium 40 mg 08/12/18 10:00 08/14/18 11:01 Protonix PO 40 mg QDAY CARLOS Administration Pravastatin Sodium 20 mg 08/12/18 22:00 08/14/18 22:10 Pravachol PO 20 mg QHS CARLOS Administration Prednisone 7.5 mg 08/12/18 10:00 08/14/18 11:01 Deltasone PO 7.5 mg DAILY CARLOS Administration Sertraline HCl 50 mg 08/13/18 14:00 08/14/18 11:02 Zoloft PO 50 mg QDAY CARLOS Administration Sodium Chloride 10 ml 08/11/18 22:00 08/14/18 22:15 Sodium Chloride Flush Syringe 10 Ml IV 10 ml BID CARLOS Administration Sodium Chloride 10 ml 08/11/18 20:58 Sodium Chloride Flush Syringe 10 Ml IV PRN PRN LINE FLUSH Temazepam 15 mg 08/12/18 22:00 08/14/18 22:10 Restoril PO 15 mg QHS CARLOS Administration
[2018-08-15] MEDS: ZITHROMAX 500 MG in NACL 0.9% 250ML 250 ML IV SCH ×2 (10:00→10:31)
[2018-08-15] MEDS: DELTASONE PO SCH (10:27)
[2018-08-15] MEDS: ALDACTONE PO SCH (10:29)
[2018-08-15] MEDS: ZOLOFT PO SCH (10:30)
[2018-08-15] MEDS: ZYLOPRIM PO SCH (10:30)
[2018-08-15] MEDS: PROTONIX PO SCH (10:30)
[2018-08-15] MEDS: SandIMMUNE PO SCH (10:31)
[2018-08-15] MEDS: ROCEPHIN/NS 1 GM/50 ML 1 GM/50 ML BAG IV SCH ×2 (10:32→17:04)
[2018-08-15] MEDS: LOPRESSOR PO SCH (10:32)
[2018-08-15] MEDS: SODIUM CHLORIDE FLUSH SYRINGE 10 ML IV SCH (10:33)
--- NOTE | 2018-08-15 12:46 | Progress Note ---
Assessment and Plan Assessment and plan: Patient is a 62-year-old woman with history of COPD, bronchiectasis, CKD 4 status post renal transplant (1991) not on hemodialysis but has a left arm AVF in anticipation for HD in the future, hypertension and AOCD who [facility] from [facility] (where she was currently 1013) with FEVERs. Initially, patient was admitted to [facility] for pneumonia and developed psychosis in hospital; therefore, discharged to [facility] near this Hospital. She has been admitted for UTI with sepsis causing Encephalopathy. Drop in H/H, with hemoglobin 6.7 and low plt: d/w Printed [employer] Panels Developer, Dr. Gallo, who instructed me to give Procrit 20,000 subq x 1, ordered folate/vit b12/iron/ferritn level and Dr. 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 ordered CT chest for unresolving RML PNA from [facility]. Diarrhea: stopped colace, and ordered FOBT DVT ppx reviewed scd only due to low blood counts full code Hbg 6.7 yesterday, labs pending i have called the nurse FOBT negative Iron, ferritin, vit b12 and folate pending==>AOCD most likely CT chest w/o contrast reviewed RUL lung mass, lung cancer not excluded, Dr. Higgins is waiting on prior CT chest from [facility] cr 2.6, cycolsporine levels pending also, Nephrology following Dr. Garcia, her heme/onc records requested by Dr. Gallo History Interval history: Patient was seen and examined. Follow-up on current diagnosis of AMS. No overnight events reported to me. Patient denies any chest pain, shortness breath, nausea/vomiting or severe headaches. Imaging, nursing note, chart, labs and old chart reviewed. Discussed with patient. I sat down and d/w patient and daughter Keya at bedside. Hospitalist Physical - Physical exam Narrative exam: Gen: WDWN, NAD, Awake, Alert, Orientated x 2, missed location, she thought she was at [facility] HEENT: NCAT, EOMI, PERRL, OP Clear Neck: supple, no adenopathy, no thyromegaly, no JVD CVS/Heart: RRR, normal S1S2, pulses present bilaterally Chest/Lungs: CTA B, Symmetrical chest expansion, good air entry bilaterally GI/Abdomen: soft, NTND, good bowel sounds, no guarding or rebound /Bladder: no suprapubic tenderness, no CVA or paraspinal tenderness Extermity/Skin: no c/c/e, no obvious rash, many seborrheic dermatitis on face MSK: FROM x 4 Neuro: CN 2-12 grossly intact, no new focal deficits Psych: calm but unpleasant to me, when I ask a question she doesn't respond but then the daughter will ask the same question and she responds. Refused to shake my hands - Constitutional Vitals: Temp Pulse Resp BP Pulse Ox 99.2 F 92 H 22 113/56 95 08/15/18 12:11 08/15/18 12:11 08/15/18 12:11 08/15/18 12:11 08/15/18 12:11 Results - Labs CBC & Chem 7: 08/15/18 07:40 08/15/18 07:40 Labs: Laboratory Last Values WBC 3.4 K/mm3 (4.5-11.0) L 08/15/18 07:40 RBC 2.18 M/mm3 (3.65-5.03) L 08/15/18 07:40 Hgb 7.0 gm/dl (10.1-14.3) L 08/15/18 07:40 Hct 21.4 % (30.3-42.9) L 08/15/18 07:40 MCV 98 fl (79-97) H 08/15/18 07:40 MCH 32 pg (28-32) 08/15/18 07:40 MCHC 33 % (30-34) 08/15/18 07:40 RDW 18.5 % (13.2-15.2) H 08/15/18 07:40 Plt Count 66 K/mm3 (140-440) L 08/15/18 07:40 Lymph % (Auto) 7.1 % (13.4-35.0) L 08/12/18 20:18 [place] % (Auto) 4.0 % (0.0-7.3) 08/12/18 20:18 Eos % (Auto) 0.1 % (0.0-4.3) 08/12/18 20:18 Baso % (Auto) 0.2 % (0.0-1.8) 08/12/18 20:18 Lymph # 0.3 K/mm3 (1.2-5.4) L 08/12/18 20:18 [place] # 0.2 K/mm3 (0.0-0.8) 08/12/18 20:18 Eos # 0.0 K/mm3 (0.0-0.4) 08/12/18 20:18 Baso # 0.0 K/mm3 (0.0-0.1) 08/12/18 20:18 Seg Neutrophils % 88.6 % (40.0-70.0) H 08/12/18 20:18 Seg Neutrophils # 3.7 K/mm3 (1.8-7.7) 08/12/18 20:18 Sodium 135 mmol/L (137-145) L 08/15/18 07:40 Potassium 4.0 mmol/L (3.6-5.0) 08/15/18 07:40 Chloride 103.9 mmol/L (98-107) 08/15/18 07:40 Carbon Dioxide 18 mmol/L (22-30) L 08/15/18 07:40 17 mmol/L 08/15/18 07:40 BUN 18 mg/dL (7-17) H 08/15/18 07:40 2.5 mg/dL (0.7-1.2) H 08/15/18 07:40 Estimated GFR 24 ml/min 08/15/18 07:40 7 % 08/15/18 07:40 Glucose 85 mg/dL (65-100) 08/15/18 07:40 POC Glucose 97 (70-105) 08/14/18 17:31 5.9 % (4-6) 08/11/18 23:19 Lactic Acid 1.30 mmol/L (0.7-2.0) 08/11/18 19:32 Calcium 7.2 mg/dL (8.4-10.2) L 08/15/18 07:40 Iron 26 ug/dL (37-170) L 08/14/18 14:57 TIBC 125 mcg/dL (250-450) L 08/14/18 14:57 1114.0 ng/mL (13.0-400.0) H 08/14/18 14:57 0.70 mg/dL (0.1-1.2) 08/11/18 16:59 AST 20 units/L (5-40) 08/11/18 16:59 ALT 10 units/L (7-56) 08/11/18 16:59 85 units/L (35-129) 08/11/18 16:59 241 units/L (91-180) H 08/15/18 07:40 5.6 g/dL (6.3-8.2) L 08/11/18 16:59 3.0 g/dL (3.9-5) L 08/11/18 16:59 1.2 % 08/11/18 16:59 Vitamin B12 605.3 pg/mL (211-911) 08/14/18 14:57 11.85 ng/mL (7.3-26.0) 08/14/18 14:57 Yellow (Yellow) 08/11/18 18:36 Clear (Clear) 08/11/18 18:36 8.0 (5.0-7.0) H 08/11/18 18:36 Ur Specific [place] 1.010 (1.003-1.030) 08/11/18 18:36 100 mg/dl mg/dL (Negative) 08/11/18 18:36 Neg mg/dL (Negative) 08/11/18 18:36 Neg mg/dL (Negative) 08/11/18 18:36 Mod (Negative) 08/11/18 18:36 Neg (Negative) 08/11/18 18:36 Neg (Negative) 08/11/18 18:36 < 2.0 mg/dL (<2.0) 08/11/18 18:36 Ur Leukocyte Esterase Mod (Negative) 08/11/18 18:36 75.0 /HPF (0.0-6.0) H 08/11/18 18:36 71.0 /HPF (0.0-6.0) 08/11/18 18:36 U Epithel Cells (Auto) 2.0 /HPF (0-13.0) 08/11/18 18:36 1+ /HPF 08/11/18 18:36 Active Medications - Current Medications Current Medications: Generic Name Dose Route Start Last Admin Trade Name Freq PRN Reason Stop Dose Admin Acetaminophen 650 mg 08/11/18 20:58 Tylenol PO Q4H PRN Pain MILD(1-3)/Fever >100.5/HAYNES Albuterol 2.5 mg 08/11/18 20:58 08/14/18 17:13 Proventil IH 2.5 mg Q3HRT PRN Administration Shortness Of Breath Allopurinol 100 mg 08/12/18 10:00 08/15/18 10:30 Zyloprim PO 100 mg DAILY CARLOS Administration Arformoterol Tartrate 15 mcg 08/13/18 09:45 08/15/18 08:13 Brovana Nebu IH 15 mcg Q12HRT CARLOS Administration Budesonide 0.5 mg 08/13/18 10:00 08/15/18 08:13 Pulmicort IH 0.5 mg Q12HRT CARLOS Administration Cyclosporine 50 mg 08/12/18 22:00 08/14/18 22:09 Sandimmune PO 50 mg QHS CARLOS Administration Cyclosporine 75 mg 08/13/18 10:00 08/15/18 10:31 Sandimmune PO 75 mg QAM CARLOS Administration Hydralazine HCl 10 mg 08/14/18 13:31 08/15/18 00:51 Apresoline IV 10 mg Q4HR PRN Administration HTN SBP>=180 DBP>=110 Ceftriaxone Sodium 1 gm in 50 mls @ 100 mls/hr 08/12/18 10:00 08/15/18 10:32 Rocephin/Ns 1 Gm/50 Ml IV 100 mls/hr Q24HR CARLOS Administration Protocol Azithromycin 500 mg/ Sodium 250 mls @ 250 mls/hr 08/13/18 10:00 08/15/18 10:31 Chloride IV 250 mls/hr Q24HR CARLOS Administration Loperamide HCl 2 mg 08/14/18 22:26 Imodium PO Q2H PRN Diarrhea Metoprolol Tartrate 50 mg 08/15/18 10:30 08/15/18 10:32 Lopressor PO 50 mg BID CARLOS Administration Pantoprazole Sodium 40 mg 08/12/18 10:00 08/15/18 10:30 Protonix PO 40 mg QDAY CARLOS Administration Pravastatin Sodium 20 mg 08/12/18 22:00 08/14/18 22:10 Pravachol PO 20 mg QHS CARLOS Administration Prednisone 7.5 mg 08/12/18 10:00 08/15/18 10:27 Deltasone PO 7.5 mg DAILY CARLOS Administration Sertraline HCl 50 mg 08/13/18 14:00 08/15/18 10:30 Zoloft PO 50 mg QDAY CARLOS Administration Sodium Chloride 10 ml 08/11/18 22:00 08/15/18 10:33 Sodium Chloride Flush Syringe 10 Ml IV 10 ml BID CARLOS Administration Sodium Chloride 10 ml 08/11/18 20:58 Sodium Chloride Flush Syringe 10 Ml IV PRN PRN LINE FLUSH Spironolactone 25 mg 08/15/18 10:30 08/15/18 10:29 Aldactone PO 25 mg QDAY CARLOS Administration Temazepam 15 mg 08/12/18 22:00 08/14/18 22:10 Restoril PO 15 mg QHS CARLOS Administration Nutrition/Malnutrition Assess - Dietary Evaluation Nutrition/Malnutrition Findings: Nutrition Notes Start: 08/12/18 16:46 Freq: Status: Active Protocol: Document 08/12/18 16:46 RM (Rec: 08/12/18 16:55 RM [id number]) Nutrition Notes Need for Assessment generated from: superintendent track Initial or Follow up Assessment Current Diagnosis COPD,Diabetes,Hyperlipidemia Other Pertinent Diagnosis ESRD S/P renal transplant, GERD Current Diet Renal Labs/Tests Reviewed Pertinent Medications Solu-Medrol (08/11/18) Height 4 ft 11 in Weight 53.977 kg [place] Body Weight (kg) 43.18 BMI 24.0 Subjective/Other Information Screened for skin risk. [place] 15 points. Pt confused and w/sitter at time of visit. Per pt nurse pt ate 25% of breakfast this morning. Percent of energy/protein needs met: 44%/61% Burn Absent Trauma Absent #1 Nutrition Diagnosis Inadequate oral intake Etiology confusion As Evidenced by Signs and Symptoms pt nurse statement that pt ate 25% of breakfast this morning Is patient on ventilator? No Is Patient Ambulatory and/or Out of Bed No REE-([facility] Jend-confined to bed) 1211.562 Calculation Used for Recommendations [facility] Additional Notes Protein Needs: 32-43g (0.6-0. 8g/kg) Fluid Needs: 1 ml/kcal Nutrition Intervention Change Diet Order: Continue current Add Supplement/Snack (indicate name/kcal Glucerna 1 daily /protein ) Provides kCal: 220 Provides Protein (gm) 10 Goal #1 Meet at least 75% of calorie and protein needs via PO and ONS intakes Anticipated Discharge Needs: Renal diet Follow-Up By: 08/14/18 Additional Comments Follow for PO and ONS intakes
[2018-08-15 13:01] LABS: Monocytes % (Manual) 0 % (0.0-7.3); Total Cells Counted 100
[2018-08-15 13:07] LABS: Basophils % (Manual) 0 % (0.0-1.8); Eosinophils % (Manual) 0 % (0.0-4.3)
[2018-08-15 13:08] LABS: Anisocytosis Few; Ovalocytes Few; Tear Drop Cells Rare
[2018-08-15 13:10] LABS: Platelet Estimate Consistent w Auto
--- NOTE | 2018-08-15 13:51 | Progress Note ---
Assessment and Plan his is 62-year-old white female with history of bronchiectasis, ESRD status post renal transplant (1991), hypertension, anemia, who presents to our facility from [place] (where is is currently 1013) with c/o fever and tachycardia. According to house physcican at [place] patient had low-grade temperature of 100.3 and elevated heart rate today and was facility and was referred to our facility for further evaluation and treatment. Patient's family is at bedside and states that she was recently admitted and treated for pneumonia at a facility in [facility]. As per family patient became confused and displayed psychosis behavior during her admission at the facility in [place] and was d/c'd to [place] for treatment. However, they feel her behavior was related to the medication she received. Patients daughter says, she is on cyclosporin for renal transplant. Patient has no history of smoking, alcohol or drug abuse. Patient worked with [employer] in the past. Patient allergic to Rpinirole. Patient and has one daughter. Patient presently complaining non productive cough and slight shortness of b reath. Denies chest pain. Patient has been loosing weight and apetite is not good. Patient presently on room air and O2 saturation runnin g 99%. Patient CAT scan of chest done 08/14/18 reported Right upper lobe masslike lesion. Lung cancer is not excluded. Trace bilateral pleural effusions with bibasilar dependent consolidation likely atelectasis Splenomegaly. Patients CBC showed Leukopenia, anemia and thrombocytopenia. WBC 2.5. HGB 6.7, Platelets 59,000. BMP: BUN 20, Creatinin 2.6. 08/15/18 Patient says breathing better.Cough is also getting better. Patient presently on room air.O2 saturation 95%. No acute respiratory distress. Still waiting for reports from [facility]. 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 - Patient Problems (1) Pneumonia Current Visit: Yes Status: Acute Qualifiers: Pneumonia type: due to unspecified organism Laterality: left Lung location: lower lobe of lung Qualified Code(s): J18.1 - Lobar pneumonia, unspecified organism Plan to address problem: Patient is on Zithromax and Ceftrioxone. (2) SOB (shortness of breath) Current Visit: Yes Status: Acute Plan to address problem: Albuterol/atrovent aerosol treatments q 6 hours. Patient is on PO Prednisone. (3) Anemia with low platelet count Current Visit: Yes Status: Acute Plan to address problem: Recommend to consult hematology. (4) Thrombocytopenia Current Visit: Yes Status: Acute Plan to address problem: Recommend to consult Hematology. (5) UTI (urinary tract infection) Current Visit: Yes Status: Acute Qualifiers: Urinary tract infection type: acute cystitis Hematuria presence: with he maturia Qualified Code(s): N30.01 - Acute cystitis with hematuria Plan to address problem: Patient is on ceftrioxone and Zithromax. (6) MAYURI (acute kidney injury) Current Visit: Yes Status: Acute Plan to address problem: Recommend to consult nephrology. Patient has history kidney transplant. (7) Lung density on x-ray Current Visit: Yes Status: Acute Plan to address problem: Lung Density right upper lobe Reported on the CT of chest. According to the patient and patients daughter it was read as Bronchiectasis at [facility] Recommend to get those reports , if possible disc to compare with present CAT scan of chest. Patients daughter said, she will make arrangements to get those results. 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 Subjective Date of service: 08/15/18 Interval history: Patient says breathing better.Cough is also getting better. Patient presently on room air.O2 saturation 95%. No acute respiratory distress. Still waiting for reports from [facility]. 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 Objective Vital Signs - 12hr 08/15/18 08/15/18 08/15/18 06:34 08:13 08:23 Temperature 99.4 F Pulse Rate 93 H Pulse Rate [ 93 H 96 H Anterior Bilateral Throughout] Respiratory 22 Rate Respiratory 20 20 Rate [Anterior Bilateral Throughout] Blood Pressure 170/58 O2 Sat by Pulse 95 Oximetry 08/15/18 08/15/18 08/15/18 10:29 10:32 12:11 Temperature 99.2 F Pulse Rate 98 H 98 H 92 H Pulse Rate [ Anterior Bilateral Throughout] Respiratory 22 Rate Respiratory Rate [Anterior Bilateral Throughout] Blood Pressure 178/58 178/58 113/56 O2 Sat by Pulse 95 Oximetry Constitutional: no acute distress, alert Eyes: non-icteric ENT: oropharynx moist Neck: supple, no JVD Ascultation: Bilateral: rhonchi Cardiovascular: regular rate and rhythm Gastrointestinal: normoactive bowel sounds, soft, non-tender Integumentary: other (Appears some Erythematous rash) Extremities: no cyanosis, no edema Neurologic: non-focal exam, pupils equal and round, CN II-XII normal Psychiatric: anxious CBC and BMP: 08/15/18 07:40 08/15/18 07:40 Abnormal lab findings: Abnormal Labs 08/11/18 08/11/18 08/11/18 16:59 16:59 18:36 WBC RBC 2.94 L Hgb 9.1 L Hct 27.5 L MCV MCH MCHC RDW 17.7 H Plt Count 51 L Lymph % (Auto) 6.2 L [place] % (Auto) 7.9 H Lymph # 0.4 L Seg Neutrophils % 85.5 H Seg Neuts % (Manual) Lymphocytes # (Manual) Sodium 131 L Chloride 94.0 L Carbon Dioxide BUN 23 H Creatinine 2.4 H Glucose 122 H POC Glucose Calcium 8.1 L Iron TIBC Ferritin Lactate Dehydrogenase Total Protein 5.6 L Albumin 3.0 L Urine pH 8.0 H Urine WBC (Auto) 75.0 H 08/12/18 08/12/18 08/12/18 01:34 07:57 12:03 WBC RBC Hgb Hct MCV MCH MCHC RDW Plt Count Lymph % (Auto) [place] % (Auto) Lymph # Seg Neutrophils % Seg Neuts % (Manual) Lymphocytes # (Manual) Sodium Chloride Carbon Dioxide BUN Creatinine Glucose POC Glucose 195 H 151 H 108 H Calcium Iron TIBC Ferritin Lactate Dehydrogenase Total Protein Albumin Urine pH Urine WBC (Auto) 08/12/18 08/12/18 08/12/18 17:24 20:18 20:18 WBC 4.2 L RBC 2.28 L Hgb 7.4 L Hct 21.2 L D MCV MCH 33 H MCHC 35 H RDW 18.1 H Plt Count 59 L Lymph % (Auto) 7.1 L [place] % (Auto) Lymph # 0.3 L Seg Neutrophils % 88.6 H Seg Neuts % (Manual) Lymphocytes # (Manual) Sodium 134 L Chloride Carbon Dioxide 20 L BUN 23 H Creatinine 2.3 H Glucose 107 H POC Glucose 111 H Calcium 7.3 L Iron TIBC Ferritin Lactate Dehydrogenase Total Protein Albumin Urine pH Urine WBC (Auto) 08/13/18 08/13/18 08/13/18 07:01 07:01 11:27 WBC 2.3 L RBC 2.18 L Hgb 7.0 L Hct 20.7 L MCV MCH MCHC RDW 18.1 H Plt Count 60 L Lymph % (Auto) [place] % (Auto) Lymph # Seg Neutrophils % Seg Neuts % (Manual) Lymphocytes # (Manual) Sodium Chloride Carbon Dioxide 21 L BUN 23 H Creatinine 2.6 H Glucose POC Glucose 109 H Calcium 7.0 L Iron TIBC Ferritin Lactate Dehydrogenase Total Protein Albumin Urine pH Urine WBC (Auto) 08/13/18 08/13/18 08/14/18 17:30 20:15 08:04 WBC 2.5 L RBC 2.12 L Hgb 6.7 L Hct 20.1 L MCV MCH MCHC RDW 18.4 H Plt Count 59 L Lymph % (Auto) [place] % (Auto) Lymph # Seg Neutrophils % Seg Neuts % (Manual) Lymphocytes # (Manual) Sodium Chloride Carbon Dioxide BUN Creatinine Glucose POC Glucose 153 H 161 H Calcium Iron TIBC Ferritin Lactate Dehydrogenase Total Protein Albumin Urine pH Urine WBC (Auto) 08/14/18 08/14/18 08/14/18 08:04 11:24 14:57 WBC RBC Hgb Hct MCV MCH MCHC RDW Plt Count Lymph % (Auto) [place] % (Auto) Lymph # Seg Neutrophils % Seg Neuts % (Manual) Lymphocytes # (Manual) Sodium Chloride Carbon Dioxide 20 L BUN 20 H Creatinine 2.6 H Glucose POC Glucose 194 H Calcium 7.1 L Iron 26 L TIBC 125 L Ferritin Lactate Dehydrogenase Total Protein Albumin Urine pH Urine WBC (Auto) 08/14/18 08/15/18 08/15/18 14:57 07:40 07:40 WBC 3.4 L RBC 2.18 L Hgb 7.0 L Hct 21.4 L MCV 98 H MCH MCHC RDW 18.5 H Plt Count 66 L Lymph % (Auto) [place] % (Auto) Lymph # Seg Neutrophils % Seg Neuts % (Manual) 76.0 H Lymphocytes # (Manual) 0.6 L Sodium 135 L Chloride Carbon Dioxide 18 L BUN 18 H Creatinine 2.5 H Glucose POC Glucose Calcium 7.2 L Iron TIBC Ferritin 1114.0 H Lactate Dehydrogenase Total Protein Albumin Urine pH Urine WBC (Auto) 08/15/18 07:40 WBC RBC Hgb Hct MCV MCH MCHC RDW Plt Count Lymph % (Auto) [place] % (Auto) Lymph # Seg Neutrophils % Seg Neuts % (Manual) Lymphocytes # (Manual) Sodium Chloride Carbon Dioxide BUN Creatinine Glucose POC Glucose Calcium Iron TIBC Ferritin Lactate Dehydrogenase 241 H Total Protein Albumin Urine pH Urine WBC (Auto)
--- NOTE | 2018-08-16 02:17 | Consultation ---
REFERRED BY: Dr. Hilliard REASON FOR CONSULTATION: Anemia, thrombocytopenia, leukopenia. HISTORY OF PRESENT ILLNESS: I saw the patient, a 62-year-old female with history of bronchiectasis, end-stage renal disease status post transplant in 1991, hypertension, anemia, who has been following with Dr. Garcia at [place]. The patient was in the psychiatric unit at [place], was brought to the hospital with fever and tachycardia. The patient had recent hospitalization at [place] for pneumonia and after discharge due to psychosis behavior, the patient was transferred to psychiatric unit at [place] as per information. She has been admitted for these issues. The patient was found to have anemia and hence I have been consulted for ____. As per the patient, she has been following Dr. Garcia at [facility] for few years. She has undergone bone marrow biopsy also. The patient's daughter was present. She has been on Aranesp injection once every month or every 3 months based on hemoglobin. The patient says that she had been ____ to have anemia because of renal transplant. At this time, no headache, no visual disturbances. No ear discharge. History of cough present. No hemoptysis, no abdominal pain, no vomiting, no diarrhea. PAST MEDICAL HISTORY: Includes diabetes, hypertension, hyperlipidemia, anemia, renal failure status post transplant in 1991. PAST SURGICAL HISTORY: As above. SOCIAL HISTORY: Presently was at psychiatric unit. FAMILY HISTORY: Noncontributory. HOME MEDICATIONS: Included cyclosporine, prednisone. PHYSICAL EXAMINATION: VITAL SIGNS: Temperature 98, pulse 88, respirations 24, BP 172/67. HEENT: Pallor present. No icterus. NECK: No neck lymph nodes. HEART: S1, S2. LUNGS: Clear to auscultation anteriorly. ABDOMEN: Soft. Liver is palpable. EXTREMITIES: No calf tenderness. NEUROLOGIC: Alert, awake, answers simple questions. LABORATORY DATA: White cells 2.5, hemoglobin 6.7, MCV 95, platelets 59. Potassium 4.1, creatinine 2.6, calcium 7.1. Serum iron 26, ferritin 1000, B12 of 600, folate 11. RADIOLOGY: CT chest shows enlarged spleen at 15.6 cm. There is perihepatic ascites. ASSESSMENT AND PLAN: 1. Anemia, leukopenia, thrombocytopenia. The patient is on cyclosporine, this may have a role As per the patient, she has seen Dr. Garcia at [place] and undergone bone marrow biopsy. The patient has been on Aranesp support. At this time, the patient's neutrophil count on admission was not low. 2. Thrombocytopenia, medications cyclosporine related or marrow issue. 3. We will continue erythropoietin support. We will get information from Dr. Garcia. 4. Renal transplant, on cyclosporine. 5. History of pneumonia. 6. Diabetes ____. Admission hemoglobin was 11 and then 9 and then it has fallen down. We will repeat the smear evaluation. Bleeding evaluation would also need to be done. JOB# [id number] NM/NTS
--- NOTE | 2018-08-16 07:33 | Hem/Onc Progress Note ---
Assessment and Plan 1. Anemia, leukopenia, thrombocytopenia. The patient is on cyclosporine, this may have a role As per the patient, she has seen Dr. Garcia at [place] and undergone bone marrow biopsy. The patient has been on Aranesp support. At this time, the patient's neutrophil count on admission was not low. 2. Thrombocytopenia, medications cyclosporine related or marrow issue. 3. erythropoietin support. We will try to get information from Dr. Garcia. 4. Renal transplant, on cyclosporine. 5. History of pneumonia. 6. Diabetes. hemoglobin was 9 and then it has fallen down. smear evaluation. pt also on prednisone 7.5 mg daily US liver - normal CT - splenomegaly procrit - Patient Problems (1) Anemia with low platelet count Current Visit: Yes Status: Acute Subjective Date of service: 08/16/18 Principal diagnosis: anemia Interval history: wants to go home Objective - Constitutional Vitals: Last Vital Signs Temp 98.7 F 08/15/18 16:14 Pulse 72 08/15/18 20:36 Resp 16 08/15/18 22:00 BP 166/59 08/15/18 16:14 Pulse Ox 95 08/15/18 22:00 Pain Intensity (0-10): denies any pain General appearance: no acute distress Performance status: 3-limited selfcare - EENT Eyes: EOM intact ENT: hearing intact Lymph node exam: negative cervical - Neck Neck: normal ROM - Respiratory Respiratory effort: Positive: normal Respiratory: bilateral: CTA (anterioly) - Cardiovascular Heart Sounds: Present: S1 & S2 Extremities: normal temperature - Gastrointestinal General gastrointestinal: Present: soft, non-tender Rectal Exam: deferred - Genitourinary Female genitourinary: Present: deferred - Integumentary Integumentary: warm - Musculoskeletal Musculoskeletal: strength equal bilaterally - Neurologic Neurologic: moves all extremities - Labs Lab Results: Laboratory Results - last 24 hr 08/15/18 08/15/18 08/15/18 07:40 07:40 07:40 WBC 3.4 L RBC 2.18 L Hgb 7.0 L Hct 21.4 L MCV 98 H MCH 32 MCHC 33 RDW 18.5 H Plt Count 66 L Total Counted 100 Seg Neuts % (Manual) 76.0 H Band Neutrophils % 0 Lymphocytes % (Manual) 19.0 Reactive Lymphs % (Man) 5.0 Monocytes % (Manual) 0 Eosinophils % (Manual) 0 Basophils % (Manual) 0 Metamyelocytes % 0 Myelocytes % 0 Promyelocytes % 0 Blast Cells % 0 Seg Neutrophils # Man 2.6 Band Neutrophils # 0.0 Lymphocytes # (Manual) 0.6 L Abs React Lymphs (Man) 0.2 Monocytes # (Manual) 0.0 Eosinophils # (Manual) 0.0 Basophils # (Manual) 0.0 Metamyelocytes # 0.0 Myelocytes # 0.0 Promyelocytes # 0.0 Blast Cells # 0.0 Pathologist Review Platelet Estimate Consistent w auto Anisocytosis Few Tear Drop Cells Rare Ovalocytes Few Elliptocytes Rare Hem Pathologist Commnt Sent to pathology Sodium 135 L Potassium 4.0 Chloride 103.9 Carbon Dioxide 18 L Anion Gap 17 BUN 18 H Creatinine 2.5 H Estimated GFR 24 BUN/Creatinine Ratio 7 Glucose 85 Calcium 7.2 L Lactate Dehydrogenase 241 H Medications & Allergies - Medications Allergies/Adverse Reactions: Allergies ropinirole Allergy (Verified 08/11/18 17:48) Unknown hallucinations Home Medications: Home Medications Medication Instructions Recorded Confirmed Last Taken Type Allopurinol [Zyloprim] 100 mg PO DAILY 08/11/18 08/11/18 Unknown History Allopurinol [Zyloprim] 100 mg PO QDAY 08/11/18 08/11/18 Unknown History Levocetirizine Dihydrochloride 5 mg PO QHS 08/11/18 08/11/18 Unknown History [Xyzal] Metoprolol [Lopressor TAB] 50 mg PO QDAY 08/11/18 08/11/18 Unknown History Omeprazole 40 mg PO QAM 08/11/18 08/11/18 Unknown History Omeprazole 40 mg PO QDAY 08/11/18 08/11/18 Unknown History Pantoprazole [Protonix] 40 mg PO QDAY 08/11/18 08/11/18 Unknown History Pravastatin [Pravachol] 20 mg PO QHS 08/11/18 08/11/18 Unknown History Sertraline [Zoloft] 50 mg PO QDAY 08/11/18 08/11/18 Unknown History Sodium Bicarbonate 650 mg PO BID 08/11/18 08/11/18 Unknown History Sodium Bicarbonate 650 mg PO BID 08/11/18 08/11/18 Unknown History Temazepam 30 mg PO QHS 08/11/18 08/11/18 Unknown History Temazepam [Restoril] 15 mg PO QHS 08/11/18 08/11/18 Unknown History cycloSPORINE [SandIMMUNE] 50 mg PO QHS 08/11/18 08/11/18 Unknown History cycloSPORINE [SandIMMUNE] 50 mg PO QHS 08/11/18 08/11/18 Unknown History metroNIDAZOLE [Flagyl] 500 mg PO BID 08/11/18 08/11/18 Unknown History predniSONE [Deltasone] 7.5 mg PO DAILY 08/11/18 08/11/18 Unknown History predniSONE [Deltasone] 7.5 mg PO QDAY 08/11/18 08/11/18 Unknown History cycloSPORINE [SandIMMUNE] 25 mg PO TID 08/12/18 08/12/18 08/07/18 History 25 mg Active Medications: Generic Name Dose Route Start Last Admin Trade Name Freq PRN Reason Stop Dose Admin Acetaminophen 650 mg 08/11/18 20:58 Tylenol PO Q4H PRN Pain MILD(1-3)/Fever >100.5/HAYNES Albuterol 2.5 mg 08/11/18 20:58 08/14/18 17:13 Proventil IH 2.5 mg Q3HRT PRN Administration Shortness Of Breath Allopurinol 100 mg 08/12/18 10:00 08/15/18 10:30 Zyloprim PO 100 mg DAILY CARLOS Administration Arformoterol Tartrate 15 mcg 08/13/18 09:45 08/15/18 20:26 Brovana Nebu IH 15 mcg Q12HRT CARLOS Administration Budesonide 0.5 mg 08/13/18 10:00 08/15/18 20:26 Pulmicort IH 0.5 mg Q12HRT CARLOS Administration Cyclosporine 50 mg 08/12/18 22:00 08/14/18 22:09 Sandimmune PO 50 mg QHS CARLOS Administration Cyclosporine 75 mg 08/13/18 10:00 08/15/18 10:31 Sandimmune PO 75 mg QAM CARLOS Administration Hydralazine HCl 10 mg 08/14/18 13:31 08/15/18 00:51 Apresoline IV 10 mg Q4HR PRN Administration HTN SBP>=180 DBP>=110 Ceftriaxone Sodium 1 gm in 50 mls @ 100 mls/hr 08/12/18 10:00 08/15/18 17:04 Rocephin/Ns 1 Gm/50 Ml IV 100 mls/hr Q24HR CARLOS Administration Protocol Azithromycin 500 mg/ Sodium 250 mls @ 250 mls/hr 08/13/18 10:00 08/15/18 10:00 Chloride IV 250 mls/hr Q24HR CARLSO Administration Loperamide HCl 2 mg 08/14/18 22:26 Imodium PO Q2H PRN Diarrhea Metoprolol Tartrate 50 mg 08/15/18 10:30 08/15/18 10:32 Lopressor PO 50 mg BID CARLOS Administration Pantoprazole Sodium 40 mg 08/12/18 10:00 08/15/18 10:30 Protonix PO 40 mg QDAY CARLOS Administration Pravastatin Sodium 20 mg 08/12/18 22:00 08/14/18 22:10 Pravachol PO 20 mg QHS CARLOS Administration Prednisone 7.5 mg 08/12/18 10:00 08/15/18 10:27 Deltasone PO 7.5 mg DAILY CARLOS Administration Sertraline HCl 50 mg 08/13/18 14:00 08/15/18 10:30 Zoloft PO 50 mg QDAY CARLOS Administration Sodium Chloride 10 ml 08/11/18 22:00 08/15/18 10:33 Sodium Chloride Flush Syringe 10 Ml IV 10 ml BID CARLOS Administration Sodium Chloride 10 ml 08/11/18 20:58 Sodium Chloride Flush Syringe 10 Ml IV PRN PRN LINE FLUSH Spironolactone 25 mg 08/15/18 10:30 08/15/18 10:29 Aldactone PO 25 mg QDAY CARLOS Administration Temazepam 15 mg 08/12/18 22:00 08/14/18 22:10 Restoril PO 15 mg QHS CARLOS Administration
[2018-08-16] MEDS: PULMICORT IH SCH ×2 (07:54→20:05)
[2018-08-16] MEDS: BROVANA NEBU IH SCH ×2 (07:54→20:05)
--- NOTE | 2018-08-16 08:13 | Ultrasound Report ---
ULTRASOUND ABDOMEN LIMITED: TECHNIQUE: Transabdominal ultrasound with color Doppler interrogation. HISTORY: Liver size. COMPARISON: none. FINDINGS: LIVER: Normal. BILIARY SYSTEM: Small amount of sludge in the gallbladder. No biliary dilatation. PANCREAS: Normal. RIGHT KIDNEY: The right kidney is atrophic measuring 6.3 cm in length. No focal right renal lesion or hydronephrosis. PROXIMAL AORTA: Normal. ASCITES: Trace perihepatic ascites and trace right pleural effusion are noted. IMPRESSION: Atrophic right kidney consistent with chronic renal parenchymal disease. Small amount of sludge in the gallbladder. Trace ascites and right pleural effusion.
[2018-08-16] MEDS: ZITHROMAX 500 MG in NACL 0.9% 250ML 250 ML IV SCH (12:42)
[2018-08-16] MEDS: ROCEPHIN/NS 1 GM/50 ML 1 GM/50 ML BAG IV SCH (12:42)
[2018-08-16] MEDS: SODIUM CHLORIDE FLUSH SYRINGE 10 ML IV SCH ×2 (12:43→22:00)
[2018-08-16] MEDS: LOPRESSOR PO SCH ×2 (12:43→21:37)
[2018-08-16] MEDS: ZOLOFT PO SCH (12:43)
[2018-08-16] MEDS: ALDACTONE PO SCH (12:44)
[2018-08-16] MEDS: PROTONIX PO SCH (12:44)
[2018-08-16] MEDS: DELTASONE PO SCH (12:44)
[2018-08-16] MEDS: ZYLOPRIM PO SCH (12:44)
[2018-08-16] MEDS: SandIMMUNE PO SCH ×2 (12:45→21:37)
--- NOTE | 2018-08-16 13:08 | Progress Note ---
Subjective Principal diagnosis: anemia - low plt Interval history: Patient was seen today for follow-up on multiple renal related issues blood pressure control is improving Patient denies having any chest pain pressure or shortness of breath Vitals labs intake output medications were reviewed Social history: Reviewed Allergies: Reviewed Family history: Reviewed Physical examination HEENT: Oral mucosa moist no pallor or icterus Neck: Supple no JVD Chest: Clear to auscultation anteriorly CVS: Regular rate and rhythm S1 and S2 heard Abdomen: Soft nontender no suprapubic masses no organomegaly appreciable Extremity: Dry skin less than 1+ peripheral edema Musculoskeletal: No joint effusion noted in knees and ankle Neurological: Alert awake Dermatology: No petechial rashes Psychiatry: No evidence of any agitation and aggression noted Assessment and plan; Chronic kidney disease in a patient who has known history of renal transplant recipient since 1991 patient has not been followed by [facility] where she is supposed to do once a year currently she is being followed by 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 in [facility] and plans to follow-up with them current creatinine around 2.5 increase spironolactone with caution blood pressure control impro follow-up on renal arterial duplex Pancytopenia slowly improving, currently being followed by oncology Continue with her current dose of immunosuppression which All the renal related issues were discussed with patient Transplant ultrasonogram does not show any evidence ofobstruction, or hydronephrosis but kidneys echogenic suggestive of chronic kidney disease she does have an incidental cyst in the kidney patient was made aware about the findings Hypertension: Requires better control and management current blood pressure between 170 and 180, will increase metoprolol order a renal arterial vascular Doppler, It is quite likely that patient may have renovascular hypertension and hence will consider a trial of spironolactone Urine culture has been noted to be negative so far blood culture has been negative for last 48 hours Chest x-ray could not rule out any possibility of lung infiltrate Patient was adequately counseled and educated regarding multiple renal related issues Pertinent lab findings were discussed with patient and patient does exhibit good understanding of renal issues. We'll continue to follow and make recommendation from renal standpoint Objective - Vital Signs Vital signs: Vital Signs - 12hr 08/16/18 08/16/18 05:18 11:46 Temperature 97.6 F 98.6 F Pulse Rate 78 82 Respiratory 22 20 Rate Blood Pressure 163/68 159/55 O2 Sat by Pulse 95 96 Oximetry - Lab 08/16/18 13:23 08/16/18 13:23 Most recent lab results Calcium 7.2 mg/dL (8.4-10.2) L 08/15/18 07:40 Medications & Allergies - Medications Allergies/Adverse Reactions: Allergies ropinirole Allergy (Verified 08/11/18 17:48) Unknown hallucinations Home Medications: Home Medications Medication Instructions Recorded Confirmed Last Taken Type Allopurinol [Zyloprim] 100 mg PO DAILY 08/11/18 08/11/18 Unknown History Allopurinol [Zyloprim] 100 mg PO QDAY 08/11/18 08/11/18 Unknown History Levocetirizine Dihydrochloride 5 mg PO QHS 08/11/18 08/11/18 Unknown History [Xyzal] Metoprolol [Lopressor TAB] 50 mg PO QDAY 08/11/18 08/11/18 Unknown History Omeprazole 40 mg PO QAM 08/11/18 08/11/18 Unknown History Omeprazole 40 mg PO QDAY 08/11/18 08/11/18 Unknown History Pantoprazole [Protonix] 40 mg PO QDAY 08/11/18 08/11/18 Unknown History Pravastatin [Pravachol] 20 mg PO QHS 08/11/18 08/11/18 Unknown History Sertraline [Zoloft] 50 mg PO QDAY 08/11/18 08/11/18 Unknown History Sodium Bicarbonate 650 mg PO BID 08/11/18 08/11/18 Unknown History Sodium Bicarbonate 650 mg PO BID 08/11/18 08/11/18 Unknown History Temazepam 30 mg PO QHS 08/11/18 08/11/18 Unknown History Temazepam [Restoril] 15 mg PO QHS 08/11/18 08/11/18 Unknown History cycloSPORINE [SandIMMUNE] 50 mg PO QHS 08/11/18 08/11/18 Unknown History cycloSPORINE [SandIMMUNE] 50 mg PO QHS 08/11/18 08/11/18 Unknown History metroNIDAZOLE [Flagyl] 500 mg PO BID 08/11/18 08/11/18 Unknown History predniSONE [Deltasone] 7.5 mg PO DAILY 08/11/18 08/11/18 Unknown History predniSONE [Deltasone] 7.5 mg PO QDAY 08/11/18 08/11/18 Unknown History cycloSPORINE [SandIMMUNE] 25 mg PO TID 08/12/18 08/12/18 08/07/18 History 25 mg Active Medications: Generic Name Dose Route Start Last Admin Trade Name Freq PRN Reason Stop Dose Admin Acetaminophen 650 mg 08/11/18 20:58 Tylenol PO Q4H PRN Pain MILD(1-3)/Fever >100.5/HAYNES Albuterol 2.5 mg 08/11/18 20:58 08/14/18 17:13 Proventil IH 2.5 mg Q3HRT PRN Administration Shortness Of Breath Allopurinol 100 mg 08/12/18 10:00 08/16/18 12:44 Zyloprim PO 100 mg DAILY CARLOS Administration Arformoterol Tartrate 15 mcg 08/13/18 09:45 08/16/18 07:54 Brovana Nebu IH Not Given Q12HRT CARLOS Budesonide 0.5 mg 08/13/18 10:00 08/16/18 07:54 Pulmicort IH Not Given Q12HRT CARLOS Cyclosporine 50 mg 08/12/18 22:00 08/14/18 22:09 Sandimmune PO 50 mg QHS CARLOS Administration Cyclosporine 75 mg 08/13/18 10:00 08/16/18 12:45 Sandimmune PO 75 mg QAM CARLOS Administration Hydralazine HCl 10 mg 08/14/18 13:31 08/15/18 00:51 Apresoline IV 10 mg Q4HR PRN Administration HTN SBP>=180 DBP>=110 Ceftriaxone Sodium 1 gm in 50 mls @ 100 mls/hr 08/12/18 10:00 08/16/18 12:42 Rocephin/Ns 1 Gm/50 Ml IV 100 mls/hr Q24HR CARLOS Administration Protocol Azithromycin 500 mg/ Sodium 250 mls @ 250 mls/hr 08/13/18 10:00 08/16/18 12:42 Chloride IV 250 mls/hr Q24HR CARLOS Administration Loperamide HCl 2 mg 08/14/18 22:26 Imodium PO Q2H PRN Diarrhea Metoprolol Tartrate 50 mg 08/15/18 10:30 08/16/18 12:43 Lopressor PO 50 mg BID CARLOS Administration Pantoprazole Sodium 40 mg 08/12/18 10:00 08/16/18 12:44 Protonix PO 40 mg QDAY CARLOS Administration Pravastatin Sodium 20 mg 08/12/18 22:00 08/14/18 22:10 Pravachol PO 20 mg QHS CARLOS Administration Prednisone 7.5 mg 08/12/18 10:00 08/16/18 12:44 Deltasone PO 7.5 mg DAILY CARLOS Administration Sertraline HCl 50 mg 08/13/18 14:00 08/16/18 12:43 Zoloft PO 50 mg QDAY CARLOS Administration Sodium Chloride 10 ml 08/11/18 22:00 08/16/18 12:43 Sodium Chloride Flush Syringe 10 Ml IV 10 ml BID CARLOS Administration Sodium Chloride 10 ml 08/11/18 20:58 Sodium Chloride Flush Syringe 10 Ml IV PRN PRN LINE FLUSH Spironolactone 25 mg 08/15/18 10:30 08/16/18 12:44 Aldactone PO 25 mg QDAY CARLOS Administration Temazepam 15 mg 08/12/18 22:00 08/14/18 22:10 Restoril PO 15 mg QHS CARLOS Administration
[2018-08-16] MEDS ORDERED: ALDACTONE PO SCH ×2 (13:09→14:00)
[2018-08-16] MEDS ORDERED: ALDACTONE PO ONE (14:00)
[2018-08-16 14:15] LABS: Hematocrit 21.2 % (30.3-42.9); Hemoglobin 7.2 gm/dl (10.1-14.3); Mean Corpuscular HGB Conc 34 % (30-34); Mean Corpuscular Volume 96 fl (79-97); Red Blood Count 2.21 M/mm3 (3.65-5.03); Red Cell Distribution Width 18.2 % (13.2-15.2)
[2018-08-16 14:17] LABS: Platelet Count 75 K/mm3 (140-440)
--- NOTE | 2018-08-16 15:18 | Vascular Lab Report ---
PROCEDURE: VL RENAL VASCULATURE TECHNIQUE: Real Doppler ultrasound. Duplex Doppler evaluation of transplant renal arteries. HISTORY: uncontrolled hypertension COMPARISON: None FINDINGS: Right-sided transplant kidney measures 10.8 cm in length. There is no hydronephrosis seen. The transplant renal artery flow velocities are not abnormally elevated. Specifically velocities are 72, 80 and 91 cm/s proximal, mid and distally respectively. Transplant arcuate artery resistive index is 0.68. The aorta is normal caliber. Aortic flow velocities are 103, 120 and 98 cm/s proximal, mid and distal ly respectively. Celiac and SMA flow velocities are not elevated at 112 and 89 cm/s respectively. IMPRESSION: There is no significant abnormality identified. This document is electronically signed by Rosie Eaton MD., August 16 2018 03:16:42 PM ET
[2018-08-16] MEDS: PROVENTIL IH PRN (16:14)
--- NOTE | 2018-08-16 17:37 | Progress Note ---
Assessment and Plan - Patient Problems (1) Sepsis Current Visit: Yes Status: Acute Plan to address problem: UTI versus pneumonia. Rocephin and azithromycin. Patient's fever curve is coming down. No evidence of leukocytosis. Clinically improving. (2) Renal transplant recipient Current Visit: Yes Status: Acute Plan to address problem: No evidence of rejection. Ultrasound was unremarkable. (3) Depression Current Visit: Yes Status: Resolved (4) Asthma Current Visit: Yes Status: Acute Plan to address problem: Asthma patient is stable with steroid oxygen. Seems to be oxygenating fairly well. Likely ill chronic O2. Chest CT pending. Patient right middle lobe and right upper lobe lesion. Currently on Rocephin and azithromycin for treatment UTI and possible aspiration pneumonia. Masslike density in the upper lobe and bilateral consolidation allergy following. (5) Metabolic encephalopathy Current Visit: Yes Status: Acute (6) Acute metabolic encephalopathy Current Visit: Yes Status: Acute (7) Metabolic encephalopathy Current Visit: Yes Status: Acute Plan to address problem: Acute metabolic encephalopathy most likely multifactorial COPD plus infection. Has resolved. History Interval history: Patient states she feels better would like to know about discharge situation. Patient is 62-year-old with a history of COPD bronchitis chronic kidney disease stage IV status post renal transplant presented from [facility] with low- grade fever. Patient had previously had pneumonia and psychosis from [facility]. At present appears to be doing much better. Much more alert and able to the lab with exam. Still significant wheezing. Daughter at the bedside. Both patient and daughter pleasant. Sit down and discuss with them future plan of care. Hospitalist Physical - Constitutional Vitals: Temp Pulse Resp BP Pulse Ox 98.6 F 102 H 22 159/55 96 08/16/18 11:46 08/16/18 16:24 08/16/18 16:24 08/16/18 11:46 08/16/18 11:46 General appearance: Present: no acute distress, other ( ill ap chronically ill appearing) - EENT Eyes: Present: PERRL, EOM intact - Neck Neck: Present: supple, normal ROM - Respiratory Respiratory: bilateral: diminished, rhonchi, wheezing - Cardiovascular Rhythm: regularly irregular - Extremities Extremities: no ischemia, pulses intact, No edema, normal temperature Peripheral Pulses: within normal limits - Abdominal General gastrointestinal: soft, non-tender, normal bowel sounds, no hepatomegaly, no splenomegaly, no mass, no hernia - Integumentary Integumentary: Present: clear, warm, dry - Psychiatric Psychiatric: appropriate mood/affect, memory intact, other (her cognition.) - Neurologic Neurologic: CNII-XII intact, moves all extremities Results - Labs CBC & Chem 7: 08/16/18 13:23 08/16/18 13:23 Labs: Laboratory Last Values WBC 3.2 K/mm3 (4.5-11.0) L 08/16/18 13:23 RBC 2.21 M/mm3 (3.65-5.03) L 08/16/18 13:23 Hgb 7.2 gm/dl (10.1-14.3) L 08/16/18 13:23 Hct 21.2 % (30.3-42.9) L 08/16/18 13:23 MCV 96 fl (79-97) 08/16/18 13:23 MCH 32 pg (28-32) 08/16/18 13:23 MCHC 34 % (30-34) 08/16/18 13:23 RDW 18.2 % (13.2-15.2) H 08/16/18 13:23 Plt Count 75 K/mm3 (140-440) L 08/16/18 13:23 Lymph % (Auto) 7.1 % (13.4-35.0) L 08/12/18 20:18 [place] % (Auto) 4.0 % (0.0-7.3) 08/12/18 20:18 Eos % (Auto) 0.1 % (0.0-4.3) 08/12/18 20:18 Baso % (Auto) 0.2 % (0.0-1.8) 08/12/18 20:18 Lymph # 0.3 K/mm3 (1.2-5.4) L 08/12/18 20:18 [place] # 0.2 K/mm3 (0.0-0.8) 08/12/18 20:18 Eos # 0.0 K/mm3 (0.0-0.4) 08/12/18 20:18 Baso # 0.0 K/mm3 (0.0-0.1) 08/12/18 20:18 Total Counted 100 08/15/18 07:40 Seg Neutrophils % 88.6 % (40.0-70.0) H 08/12/18 20:18 Seg Neuts % (Manual) 76.0 % (40.0-70.0) H 08/15/18 07:40 0 % 08/15/18 07:40 19.0 % (13.4-35.0) 08/15/18 07:40 Reactive Lymphs % (Man) 5.0 % 08/15/18 07:40 0 % (0.0-7.3) 08/15/18 07:40 0 % (0.0-4.3) 08/15/18 07:40 0 % (0.0-1.8) 08/15/18 07:40 0 % 08/15/18 07:40 0 % 08/15/18 07:40 0 % 08/15/18 07:40 0 % 08/15/18 07:40 Seg Neutrophils # 3.7 K/mm3 (1.8-7.7) 08/12/18 20:18 Seg Neutrophils # Man 2.6 K/mm3 (1.8-7.7) 08/15/18 07:40 Band Neutrophils # 0.0 K/mm3 08/15/18 07:40 0.6 K/mm3 (1.2-5.4) L 08/15/18 07:40 Abs React Lymphs (Man) 0.2 K/mm3 08/15/18 07:40 0.0 K/mm3 (0.0-0.8) 08/15/18 07:40 0.0 K/mm3 (0.0-0.4) 08/15/18 07:40 0.0 K/mm3 (0.0-0.1) 08/15/18 07:40 0.0 K/mm3 08/15/18 07:40 0.0 K/mm3 08/15/18 07:40 0.0 K/mm3 08/15/18 07:40 Blast Cells # 0.0 K/mm3 08/15/18 07:40 Pathologist Review 08/15/18 07:40 Consistent w auto 08/15/18 07:40 Few 08/15/18 07:40 Rare 08/15/18 07:40 Few 08/15/18 07:40 Rare 08/15/18 07:40 Hem Pathologist Commnt Sent to pathology 08/15/18 07:40 Sodium 135 mmol/L (137-145) L 08/16/18 13:23 Potassium 4.3 mmol/L (3.6-5.0) 08/16/18 13:23 Chloride 103.0 mmol/L (98-107) 08/16/18 13:23 Carbon Dioxide 17 mmol/L (22-30) L 08/16/18 13:23 19 mmol/L 08/16/18 13:23 BUN 20 mg/dL (7-17) H 08/16/18 13:23 2.4 mg/dL (0.7-1.2) H 08/16/18 13:23 Estimated GFR 25 ml/min 08/16/18 13:23 8 % 08/16/18 13:23 Glucose 111 mg/dL (65-100) H 08/16/18 13:23 POC Glucose 97 (70-105) 08/14/18 17:31 5.9 % (4-6) 08/11/18 23:19 Lactic Acid 1.30 mmol/L (0.7-2.0) 08/11/18 19:32 Calcium 8.0 mg/dL (8.4-10.2) L 08/16/18 13:23 Iron 26 ug/dL (37-170) L 08/14/18 14:57 TIBC 125 mcg/dL (250-450) L 08/14/18 14:57 1114.0 ng/mL (13.0-400.0) H 08/14/18 14:57 0.70 mg/dL (0.1-1.2) 08/11/18 16:59 AST 20 units/L (5-40) 08/11/18 16:59 ALT 10 units/L (7-56) 08/11/18 16:59 85 units/L (35-129) 08/11/18 16:59 241 units/L (91-180) H 08/15/18 07:40 5.6 g/dL (6.3-8.2) L 08/11/18 16:59 3.0 g/dL (3.9-5) L 08/11/18 16:59 1.2 % 08/11/18 16:59 Vitamin B12 605.3 pg/mL (211-911) 08/14/18 14:57 11.85 ng/mL (7.3-26.0) 08/14/18 14:57 Yellow (Yellow) 08/11/18 18:36 Clear (Clear) 08/11/18 18:36 8.0 (5.0-7.0) H 08/11/18 18:36 Ur Specific [place] 1.010 (1.003-1.030) 08/11/18 18:36 100 mg/dl mg/dL (Negative) 08/11/18 18:36 Neg mg/dL (Negative) 08/11/18 18:36 Neg mg/dL (Negative) 08/11/18 18:36 Mod (Negative) 08/11/18 18:36 Neg (Negative) 08/11/18 18:36 Neg (Negative) 08/11/18 18:36 < 2.0 mg/dL (<2.0) 08/11/18 18:36 Ur Leukocyte Esterase Mod (Negative) 08/11/18 18:36 75.0 /HPF (0.0-6.0) H 08/11/18 18:36 71.0 /HPF (0.0-6.0) 08/11/18 18:36 U Epithel Cells (Auto) 2.0 /HPF (0-13.0) 08/11/18 18:36 1+ /HPF 08/11/18 18:36 Cyclosporine (LCMSMS) 44 mcg/L (100-300) L 08/14/18 08:04 Active Medications - Current Medications Current Medications: Generic Name Dose Route Start Last Admin Trade Name Freq PRN Reason Stop Dose Admin Acetaminophen 650 mg 08/11/18 20:58 Tylenol PO Q4H PRN Pain MILD(1-3)/Fever >100.5/HAYNES Albuterol 2.5 mg 08/11/18 20:58 08/16/18 16:14 Proventil IH 2.5 mg Q3HRT PRN Administration Shortness Of Breath Albuterol/Ipratropium 1 ampul 08/16/18 20:00 Duoneb *Not For Prn Use* IH TIDRT CARLOS Allopurinol 100 mg 08/12/18 10:00 08/16/18 12:44 Zyloprim PO 100 mg DAILY CARLOS Administration Arformoterol Tartrate 15 mcg 08/13/18 09:45 08/16/18 07:54 Brovana Nebu IH Not Given Q12HRT CARLOS Budesonide 0.5 mg 08/13/18 10:00 08/16/18 07:54 Pulmicort IH Not Given Q12HRT CARLOS Cyclosporine 50 mg 08/12/18 22:00 08/14/18 22:09 Sandimmune PO 50 mg QHS CARLOS Administration Cyclosporine 75 mg 08/13/18 10:00 08/16/18 12:45 Sandimmune PO 75 mg QAM CARLOS Administration Hydralazine HCl 10 mg 08/14/18 13:31 08/15/18 00:51 Apresoline IV 10 mg Q4HR PRN Administration HTN SBP>=180 DBP>=110 Ceftriaxone Sodium 1 gm in 50 mls @ 100 mls/hr 08/12/18 10:00 08/16/18 12:42 Rocephin/Ns 1 Gm/50 Ml IV 100 mls/hr Q24HR CARLOS Administration Protocol Azithromycin 500 mg/ Sodium 250 mls @ 250 mls/hr 08/13/18 10:00 08/16/18 12:42 Chloride IV 08/17/18 10:59 250 mls/hr Q24HR CARLOS Administration Loperamide HCl 2 mg 08/14/18 22:26 Imodium PO Q2H PRN Diarrhea Metoprolol Tartrate 50 mg 08/15/18 10:30 08/16/18 12:43 Lopressor PO 50 mg BID CARLOS Administration Pantoprazole Sodium 40 mg 08/12/18 10:00 08/16/18 12:44 Protonix PO 40 mg QDAY CARLOS Administration Pravastatin Sodium 20 mg 08/12/18 22:00 08/14/18 22:10 Pravachol PO 20 mg QHS CARLOS Administration Prednisone 7.5 mg 08/12/18 10:00 08/16/18 12:44 Deltasone PO 7.5 mg DAILY CARLOS Administration Sertraline HCl 50 mg 08/13/18 14:00 08/16/18 12:43 Zoloft PO 50 mg QDAY CARLOS Administration Sodium Chloride 10 ml 08/11/18 22:00 08/16/18 12:43 Sodium Chloride Flush Syringe 10 Ml IV 10 ml BID CARLOS Administration Sodium Chloride 10 ml 08/11/18 20:58 Sodium Chloride Flush Syringe 10 Ml IV PRN PRN LINE FLUSH Spironolactone 50 mg 08/17/18 10:00 Aldactone PO QDAY CARLOS Temazepam 15 mg 08/12/18 22:00 08/14/18 22:10 Restoril PO 15 mg QHS CARLOS Administration Nutrition/Malnutrition Assess - Dietary Evaluation Nutrition/Malnutrition Findings: Nutrition Notes Start: 08/12/18 16:46 Freq: Status: Active Protocol: Document 08/15/18 17:40 CONNIE (Rec: 08/15/18 17:46 CONNIE [email or web address]) Nutrition Notes Initial or Follow up Reassessment Current Diagnosis CKD(stage I-IV),Sepsis, Hypertension Other Pertinent Diagnosis UTI, pneu Current Diet Renal mech soft + Glucerna daily Labs/Tests BUN 18 Cr 2.5 Pertinent Medications Reviewed Height 4 ft 11 in Weight 61.9 kg [place] Body Weight (kg) 43.18 BMI 27.6 Subjective/Other Information Pt has consumed 42% of meals since last assessment. Her daughter says pt drinks Glucerna. BP has been elevated. Percent of energy/protein needs met: 64% energy 89% pro (without ONS) Burn Absent Trauma Absent #1 Nutrition Diagnosis Inadequate oral intake As Evidenced by Signs and Symptoms PO intake meeting at least 50% of nutrient needs Diagnosis Progress(for reassessment Improved documentation) Is patient on ventilator? No Is Patient Ambulatory and/or Out of Bed Yes REE-([facility]-ambulatory/OOB) [ 1410.019 [id number]] Calculation Used for Recommendations [facility] Additional Notes Pro needs 0.6-0.8g/k-50g/ day Fluid needs 1ml/kcal Nutrition Intervention Change Diet Order: Continue current diet order Add Supplement/Snack (indicate name/kcal Glucerna 1 daily /protein ) Provides kCal: 220 Provides Protein (gm) 10 Goal #1 Meet at least 75% of calorie and protein needs via PO and ONS intakes Follow-Up By: 08/22/18 Additional Comments F/U: intakes, wt
--- NOTE | 2018-08-16 18:09 | Progress Note ---
Assessment and Plan Patient says breathing better.Cough is also getting better. Patient presently on room air.O2 saturation 94%. No acute respiratory distress. Still waiting for reports from [facility]. Patient want to go back to her original media strategist in [facility] for follow up on right upper lobe mass. Stressed the importance of follow up on lung mass with her own media strategist. Patient wanted to home. Patient afebrile. Leukocyte count is improving. Repeating chest xray tomorrow. Patient may go home on PO antibiotics tomorrow and again stressed importance of following with her media strategist as soon as possible. - Patient Problems (1) Pneumonia Current Visit: Yes Status: Acute Qualifiers: Pneumonia type: due to unspecified organism Laterality: left Lung location: lower lobe of lung Qualified Code(s): J18.1 - Lobar pneumonia, unspecified organism Plan to address problem: Patient is on Zithromax and Ceftrioxone. (2) SOB (shortness of breath) Current Visit: Yes Status: Acute Plan to address problem: Albuterol/atrovent aerosol treatments q 6 hours. Patient is on PO Prednisone. (3) Anemia with low platelet count Current Visit: Yes Status: Acute Plan to address problem: Recommend to consult hematology. (4) Thrombocytopenia Current Visit: Yes Status: Acute Plan to address problem: Recommend to consult Hematology. (5) UTI (urinary tract infection) Current Visit: Yes Status: Acute Qualifiers: Urinary tract infection type: acute cystitis Hematuria presence: with hematuria Qualified Code(s): N30.01 - Acute cystitis with hematuria Plan to address problem: Patient is on ceftrioxone and Zithromax. (6) MAYURI (acute kidney injury) Current Visit: Yes Status: Acute Plan to address problem: Recommend to consult nephrology. Patient has history kidney transplant. (7) Lung density on x-ray Current Visit: Yes Status: Acute Plan to address problem: Lung Density right upper lobe Reported on the CT of chest. According to the patient and patients daughter it was read as Bronchiectasis at [facility] Recommend to get those reports , if possible disc to compare with present CAT scan of chest. Patients daughter said, she will make arrangements to get those results. We have not received CAT scan of chest report from [place] yet. Patient and her daughter told me, even it is a mass right upper lobe, She wants to follow with her original media strategist in [place]. Subjective Date of service: 08/16/18 Principal diagnosis: anemia - low plt Interval history: Patient says breathing better.Cough is also getting better. Patient presently on room air.O2 saturation 94%. No acute respiratory distress. Still waiting for reports from [facility]. Patient want to go back to her original media strategist in [facility] for follow up on right upper lobe mass. Stressed the importance of follow up on lung mass with her own media strategist. Patient wanted to home. Patient afebrile. Leukocyte count is improving. Repeating chest xray tomorrow. Patient may go home on PO antibiotics tomorrow and again stressed importance of following with her media strategist as soon as possible. Objective Vital Signs - 12hr 08/16/18 08/16/18 08/16/18 11:46 16:14 16:24 Temperature 98.6 F Pulse Rate 82 Pulse Rate [ 106 H 102 H Anterior Bilateral Throughout] Respiratory 20 Rate Respiratory 22 22 Rate [Anterior Bilateral Throughout] Blood Pressure 159/55 O2 Sat by Pulse 96 Oximetry Constitutional: no acute distress, alert Eyes: non-icteric ENT: oropharynx moist Neck: supple, no JVD Ascultation: Bilateral: rhonchi Cardiovascular: regular rate and rhythm Gastrointestinal: normoactive bowel sounds, soft, non-tender Integumentary: other (Appears some Erythematous rash) Extremities: no cyanosis, no edema Neurologic: non-focal exam, pupils equal and round, CN II-XII normal Psychiatric: anxious CBC and BMP: 08/16/18 13:23 08/16/18 13:23 Abnormal lab findings: Abnormal Labs 08/11/18 08/11/18 08/11/18 16:59 16:59 18:36 WBC RBC 2.94 L Hgb 9.1 L Hct 27.5 L MCV MCH MCHC RDW 17.7 H Plt Count 51 L Lymph % (Auto) 6.2 L [place] % (Auto) 7.9 H Lymph # 0.4 L Seg Neutrophils % 85.5 H Seg Neuts % (Manual) Lymphocytes # (Manual) Sodium 131 L Chloride 94.0 L Carbon Dioxide BUN 23 H Creatinine 2.4 H Glucose 122 H POC Glucose Calcium 8.1 L Iron TIBC Ferritin Lactate Dehydrogenase Total Protein 5.6 L Albumin 3.0 L Urine pH 8.0 H Urine WBC (Auto) 75.0 H Cyclosporine (LCMSMS) 08/12/18 08/12/18 08/12/18 01:34 07:57 12:03 WBC RBC Hgb Hct MCV MCH MCHC RDW Plt Count Lymph % (Auto) [place] % (Auto) Lymph # Seg Neutrophils % Seg Neuts % (Manual) Lymphocytes # (Manual) Sodium Chloride Carbon Dioxide BUN Creatinine Glucose POC Glucose 195 H 151 H 108 H Calcium Iron TIBC Ferritin Lactate Dehydrogenase Total Protein Albumin Urine pH Urine WBC (Auto) Cyclosporine (LCMSMS) 08/12/18 08/12/18 08/12/18 17:24 20:18 20:18 WBC 4.2 L RBC 2.28 L Hgb 7.4 L Hct 21.2 L D MCV MCH 33 H MCHC 35 H RDW 18.1 H Plt Count 59 L Lymph % (Auto) 7.1 L [place] % (Auto) Lymph # 0.3 L Seg Neutrophils % 88.6 H Seg Neuts % (Manual) Lymphocytes # (Manual) Sodium 134 L Chloride Carbon Dioxide 20 L BUN 23 H Creatinine 2.3 H Glucose 107 H POC Glucose 111 H Calcium 7.3 L Iron TIBC Ferritin Lactate Dehydrogenase Total Protein Albumin Urine pH Urine WBC (Auto) Cyclosporine (LCMSMS) 08/13/18 08/13/18 08/13/18 07:01 07:01 11:27 WBC 2.3 L RBC 2.18 L Hgb 7.0 L Hct 20.7 L MCV MCH MCHC RDW 18.1 H Plt Count 60 L Lymph % (Auto) [place] % (Auto) Lymph # Seg Neutrophils % Seg Neuts % (Manual) Lymphocytes # (Manual) Sodium Chloride Carbon Dioxide 21 L BUN 23 H Creatinine 2.6 H Glucose POC Glucose 109 H Calcium 7.0 L Iron TIBC Ferritin Lactate Dehydrogenase Total Protein Albumin Urine pH Urine WBC (Auto) Cyclosporine (LCMSMS) 08/13/18 08/13/18 08/14/18 17:30 20:15 08:04 WBC 2.5 L RBC 2.12 L Hgb 6.7 L Hct 20.1 L MCV MCH MCHC RDW 18.4 H Plt Count 59 L Lymph % (Auto) [place] % (Auto) Lymph # Seg Neutrophils % Seg Neuts % (Manual) Lymphocytes # (Manual) Sodium Chloride Carbon Dioxide BUN Creatinine Glucose POC Glucose 153 H 161 H Calcium Iron TIBC Ferritin Lactate Dehydrogenase Total Protein Albumin Urine pH Urine WBC (Auto) Cyclosporine (LCMSMS) 08/14/18 08/14/18 08/14/18 08:04 08:04 11:24 WBC RBC Hgb Hct MCV MCH MCHC RDW Plt Count Lymph % (Auto) [place] % (Auto) Lymph # Seg Neutrophils % Seg Neuts % (Manual) Lymphocytes # (Manual) Sodium Chloride Carbon Dioxide 20 L BUN 20 H Creatinine 2.6 H Glucose POC Glucose 194 H Calcium 7.1 L Iron TIBC Ferritin Lactate Dehydrogenase Total Protein Albumin Urine pH Urine WBC (Auto) Cyclosporine (LCMSMS) 44 L 08/14/18 08/14/18 08/15/18 14:57 14:57 07:40 WBC 3.4 L RBC 2.18 L Hgb 7.0 L Hct 21.4 L MCV 98 H MCH MCHC RDW 18.5 H Plt Count 66 L Lymph % (Auto) [place] % (Auto) Lymph # Seg Neutrophils % Seg Neuts % (Manual) 76.0 H Lymphocytes # (Manual) 0.6 L Sodium Chloride Carbon Dioxide BUN Creatinine Glucose POC Glucose Calcium Iron 26 L TIBC 125 L Ferritin 1114.0 H Lactate Dehydrogenase Total Protein Albumin Urine pH Urine WBC (Auto) Cyclosporine (LCMSMS) 08/15/18 08/15/18 08/16/18 07:40 07:40 13:23 WBC 3.2 L RBC 2.21 L Hgb 7.2 L Hct 21.2 L MCV MCH MCHC RDW 18.2 H Plt Count 75 L Lymph % (Auto) [place] % (Auto) Lymph # Seg Neutrophils % Seg Neuts % (Manual) Lymphocytes # (Manual) Sodium 135 L Chloride Carbon Dioxide 18 L BUN 18 H Creatinine 2.5 H Glucose POC Glucose Calcium 7.2 L Iron TIBC Ferritin Lactate Dehydrogenase 241 H Total Protein Albumin Urine pH Urine WBC (Auto) Cyclosporine (LCMSMS) 08/16/18 13:23 WBC RBC Hgb Hct MCV MCH MCHC RDW Plt Count Lymph % (Auto) [place] % (Auto) Lymph # Seg Neutrophils % Seg Neuts % (Manual) Lymphocytes # (Manual) Sodium 135 L Chloride Carbon Dioxide 17 L BUN 20 H Creatinine 2.4 H Glucose 111 H POC Glucose Calcium 8.0 L Iron TIBC Ferritin Lactate Dehydrogenase Total Protein Albumin Urine pH Urine WBC (Auto) Cyclosporine (LCMSMS)
[2018-08-16] MEDS: DUONEB *Not for PRN Use IH SCH (20:05)
[2018-08-16] MEDS: PRAVACHOL PO SCH (21:37)
[2018-08-16] MEDS: RESTORIL PO SCH (21:37)
--- NOTE | 2018-08-17 07:38 | Hem/Onc Progress Note ---
Assessment and Plan 1. Anemia, leukopenia, thrombocytopenia. The patient is on cyclosporine, this may have a role As per the patient, she has seen Dr. Garcia at [place] and undergone bone marrow biopsy. The patient has been on Aranesp support. At this time, the patient's neutrophil count on admission was not low. 2. Thrombocytopenia, medications cyclosporine related or marrow issue. 3. erythropoietin support. We will try to get information from Dr. Garcia. 4. Renal transplant, on cyclosporine. 5. History of pneumonia. 6. Diabetes. hemoglobin was 9 and then it has fallen down. smear evaluation. pt also on prednisone 7.5 mg daily US liver - normal CT - splenomegaly procrit pt wants to go home - she would need hematology follow up /CBC < 1 week. - Patient Problems (1) Anemia with low platelet count Current Visit: Yes Status: Acute Subjective Date of service: 08/17/18 Principal diagnosis: anemia Interval history: feeling better US abdo done Objective - Constitutional Vitals: Last Vital Signs Temp 97.7 F 08/17/18 04:44 Pulse 77 08/17/18 04:44 Resp 24 08/17/18 04:44 BP 136/60 08/17/18 04:44 Pulse Ox 96 08/17/18 04:44 Pain Intensity (0-10): denies any pain General appearance: no acute distress Performance status: 3-limited selfcare - EENT Eyes: EOM intact ENT: hearing intact Lymph node exam: negative cervical - Neck Neck: normal ROM - Respiratory Respiratory effort: Positive: normal Respiratory: bilateral: CTA - Cardiovascular Heart Sounds: Present: S1 & S2 Extremities: No edema - Gastrointestinal General gastrointestinal: Present: soft, non-tender Rectal Exam: deferred - Genitourinary Female genitourinary: Present: deferred - Integumentary Integumentary: warm - Musculoskeletal Musculoskeletal: strength equal bilaterally - Neurologic Neurologic: moves all extremities - Labs Lab Results: Laboratory Results - last 24 hr 08/14/18 08/16/18 08/16/18 08:04 13:23 13:23 WBC 3.2 L RBC 2.21 L Hgb 7.2 L Hct 21.2 L MCV 96 MCH 32 MCHC 34 RDW 18.2 H Plt Count 75 L Sodium 135 L Potassium 4.3 Chloride 103.0 Carbon Dioxide 17 L Anion Gap 19 BUN 20 H Creatinine 2.4 H Estimated GFR 25 BUN/Creatinine Ratio 8 Glucose 111 H Calcium 8.0 L Cyclosporine (LCMSMS) 44 L Medications & Allergies - Medications Allergies/Adverse Reactions: Allergies ropinirole Allergy (Verified 08/11/18 17:48) Unknown hallucinations Home Medications: Home Medications Medication Instructions Recorded Confirmed Last Taken Type Allopurinol [Zyloprim] 100 mg PO DAILY 08/11/18 08/11/18 Unknown History Allopurinol [Zyloprim] 100 mg PO QDAY 08/11/18 08/11/18 Unknown History Levocetirizine Dihydrochloride 5 mg PO QHS 08/11/18 08/11/18 Unknown History [Xyzal] Metoprolol [Lopressor TAB] 50 mg PO QDAY 08/11/18 08/11/18 Unknown History Omeprazole 40 mg PO QAM 08/11/18 08/11/18 Unknown History Omeprazole 40 mg PO QDAY 08/11/18 08/11/18 Unknown History Pantoprazole [Protonix] 40 mg PO QDAY 08/11/18 08/11/18 Unknown History Pravastatin [Pravachol] 20 mg PO QHS 08/11/18 08/11/18 Unknown History Sertraline [Zoloft] 50 mg PO QDAY 08/11/18 08/11/18 Unknown History Sodium Bicarbonate 650 mg PO BID 08/11/18 08/11/18 Unknown History Sodium Bicarbonate 650 mg PO BID 08/11/18 08/11/18 Unknown History Temazepam 30 mg PO QHS 08/11/18 08/11/18 Unknown History Temazepam [Restoril] 15 mg PO QHS 08/11/18 08/11/18 Unknown History cycloSPORINE [SandIMMUNE] 50 mg PO QHS 08/11/18 08/11/18 Unknown History cycloSPORINE [SandIMMUNE] 50 mg PO QHS 08/11/18 08/11/18 Unknown History metroNIDAZOLE [Flagyl] 500 mg PO BID 08/11/18 08/11/18 Unknown History predniSONE [Deltasone] 7.5 mg PO DAILY 08/11/18 08/11/18 Unknown History predniSONE [Deltasone] 7.5 mg PO QDAY 08/11/18 08/11/18 Unknown History cycloSPORINE [SandIMMUNE] 25 mg PO TID 08/12/18 08/12/18 08/07/18 History 25 mg Active Medications: Generic Name Dose Route Start Last Admin Trade Name Freq PRN Reason Stop Dose Admin Acetaminophen 650 mg 08/11/18 20:58 Tylenol PO Q4H PRN Pain MILD(1-3)/Fever >100.5/HAYNES Albuterol 2.5 mg 08/11/18 20:58 08/16/18 16:14 Proventil IH 2.5 mg Q3HRT PRN Administration Shortness Of Breath Albuterol/Ipratropium 1 ampul 08/16/18 20:00 08/16/18 20:05 Duoneb *Not For Prn Use* IH Not Given TIDRT CARLOS Allopurinol 100 mg 08/12/18 10:00 08/16/18 12:44 Zyloprim PO 100 mg DAILY CARLOS Administration Arformoterol Tartrate 15 mcg 08/13/18 09:45 08/16/18 20:05 Brovana Nebu IH 15 mcg Q12HRT CARLOS Administration Budesonide 0.5 mg 08/13/18 10:00 08/16/18 20:05 Pulmicort IH 0.5 mg Q12HRT CARLOS Administration Cyclosporine 50 mg 08/12/18 22:00 08/16/18 21:37 Sandimmune PO 50 mg QHS CARLOS Administration Cyclosporine 75 mg 08/13/18 10:00 08/16/18 12:45 Sandimmune PO 75 mg QAM CARLOS Administration Epoetin Kehinde 20,000 unit 08/17/18 08:00 Procrit SUB-Q 08/17/18 08:01 ONCE ONE Hydralazine HCl 10 mg 08/14/18 13:31 08/15/18 00:51 Apresoline IV 10 mg Q4HR PRN Administration HTN SBP>=180 DBP>=110 Ceftriaxone Sodium 1 gm in 50 mls @ 100 mls/hr 08/12/18 10:00 08/16/18 12:42 Rocephin/Ns 1 Gm/50 Ml IV 100 mls/hr Q24HR CARLOS Administration Protocol Azithromycin 500 mg/ Sodium 250 mls @ 250 mls/hr 08/13/18 10:00 08/16/18 12:42 Chloride IV 08/17/18 10:59 250 mls/hr Q24HR CARLOS Administration Loperamide HCl 2 mg 08/14/18 22:26 Imodium PO Q2H PRN Diarrhea Metoprolol Tartrate 50 mg 08/15/18 10:30 08/16/18 21:37 Lopressor PO 50 mg BID CARLOS Administration Pantoprazole Sodium 40 mg 08/12/18 10:00 08/16/18 12:44 Protonix PO 40 mg QDAY CARLOS Administration Pravastatin Sodium 20 mg 08/12/18 22:00 08/16/18 21:37 Pravachol PO 20 mg QHS CARLOS Administration Prednisone 7.5 mg 08/12/18 10:00 08/16/18 12:44 Deltasone PO 7.5 mg DAILY CARLOS Administration Sertraline HCl 50 mg 08/13/18 14:00 08/16/18 12:43 Zoloft PO 50 mg QDAY CARLOS Administration Sodium Chloride 10 ml 08/11/18 22:00 08/16/18 22:00 Sodium Chloride Flush Syringe 10 Ml IV 10 ml BID CARLOS Administration Sodium Chloride 10 ml 08/11/18 20:58 Sodium Chloride Flush Syringe 10 Ml IV PRN PRN LINE FLUSH Spironolactone 50 mg 08/17/18 10:00 Aldactone PO QDAY CARLOS Temazepam 15 mg 08/12/18 22:00 08/16/18 21:37 Restoril PO 15 mg QHS CARLOS Administration
[2018-08-17] MEDS ORDERED: PROCRIT SUB-Q ONE (08:00)
[2018-08-17 08:50] LABS: Hemoglobin 6.2 gm/dl (10.1-14.3); Mean Corpuscular HGB Conc 34 % (30-34); Mean Corpuscular Volume 96 fl (79-97); Red Blood Count 1.93 M/mm3 (3.65-5.03); Red Cell Distribution Width 17.9 % (13.2-15.2)
[2018-08-17 08:53] LABS: Calcium 7.5 mg/dL (8.4-10.2)
[2018-08-17 08:55] LABS: Hematocrit 18.4 % (30.3-42.9); Platelet Count 73 K/mm3 (140-440)
--- NOTE | 2018-08-17 09:16 | Progress Note ---
Subjective Principal diagnosis: anemia Interval history: Patient was seen today for follow-up on multiple renal related issues Events of this hospitalization noted Patient denies having any chest pain pressure or shortness of breath Vitals labs intake output medications were reviewed Social history: Reviewed Allergies: Reviewed Family history: Reviewed Physical examination HEENT: Oral mucosa moist no pallor or icterus Neck: Supple no JVD Chest: Clear to auscultation anteriorly CVS: Regular rate and rhythm S1 and S2 heard Abdomen: Soft nontender no suprapubic masses no organomegaly appreciable Extremity: Dry skin less than 1+ peripheral edema Musculoskeletal: No joint effusion noted in knees and ankle Neurological: Alert awake Dermatology: No petechial rashes Psychiatry: No evidence of any agitation and aggression noted Assessment and plan; Status post diseased renal transplant 1991 Renal function stable Patient will need to follow up with Dr. Chavira Continue with current immunosuppression Long-term renal prognosis not so good Advised to take calcium twice a day Pancytopenia will need to see a manager rn We'll continue to follow and make recommendation from renal standpoint Objective - Vital Signs Vital signs: Vital Signs - 12hr 08/16/18 08/16/18 08/17/18 21:51 23:08 04:44 Temperature 97.4 F L 97.7 F Pulse Rate 84 77 Respiratory 18 24 Rate Blood Pressure 190/75 127/48 136/60 O2 Sat by Pulse 97 96 Oximetry - Lab 08/17/18 08:12 08/17/18 08:12 Most recent lab results Calcium 7.5 mg/dL (8.4-10.2) L 08/17/18 08:12 Medications & Allergies - Medications Allergies/Adverse Reactions: Allergies ropinirole Allergy (Verified 08/11/18 17:48) Unknown hallucinations Home Medications: Home Medications Medication Instructions Recorded Confirmed Last Taken Type Allopurinol [Zyloprim] 100 mg PO QDAY 08/11/18 08/11/18 Unknown History Levocetirizine Dihydrochloride 5 mg PO QHS 08/11/18 08/11/18 Unknown History [Xyzal] RX: Allopurinol [Zyloprim] 100 mg PO DAILY 08/11/18 08/11/18 Unknown History RX: Metoprolol [Lopressor TAB] 50 mg PO QDAY 08/11/18 08/11/18 Unknown History RX: Omeprazole 40 mg PO QAM 08/11/18 08/11/18 Unknown History RX: Omeprazole 40 mg PO QDAY 08/11/18 08/11/18 Unknown History RX: Pantoprazole [Protonix TAB] 40 mg PO QDAY 08/11/18 08/11/18 Unknown History RX: Pravastatin [Pravachol] 20 mg PO QHS 08/11/18 08/11/18 Unknown History RX: Sodium Bicarbonate 650 mg PO BID 08/11/18 08/11/18 Unknown History RX: Sodium Bicarbonate 650 mg PO BID 08/11/18 08/11/18 Unknown History RX: Temazepam 30 mg PO QHS 08/11/18 08/11/18 Unknown History RX: predniSONE [Deltasone] 7.5 mg PO DAILY 08/11/18 08/11/18 Unknown History RX: predniSONE [Deltasone] 7.5 mg PO QDAY 08/11/18 08/11/18 Unknown History cycloSPORINE [SandIMMUNE] 50 mg PO QHS 08/11/18 08/11/18 Unknown History metroNIDAZOLE [Flagyl] 500 mg PO BID 08/11/18 08/11/18 Unknown History cycloSPORINE [SandIMMUNE] 25 mg PO TID 08/12/18 08/12/18 08/07/18 History 25 mg RX: ALBUTEROL NEB's [Proventil 2.5 mg IH Q3HRT PRN nebu 08/17/18 Unknown Rx 0.083% NEBS] RX: Ipratropium/Albuterol Sulfate 1 ampul IH TIDRT ampul.neb 08/17/18 Unknown Rx [DUONEB *Not for PRN Use*] RX: Sertraline [Zoloft] 50 mg PO QDAY tablet 08/17/18 Unknown Rx RX: Spironolactone [Aldactone] 50 mg PO QDAY tablet 08/17/18 Unknown Rx RX: cycloSPORINE [SandIMMUNE] 50 mg PO QHS capsule 08/17/18 Unknown Rx RX: cycloSPORINE [SandIMMUNE] 75 mg PO QAM capsule 08/17/18 Unknown Rx Active Medications: Generic Name Dose Route Start Last Admin Trade Name Freq PRN Reason Stop Dose Admin Acetaminophen 650 mg 08/11/18 20:58 Tylenol PO Q4H PRN Pain MILD(1-3)/Fever >100.5/HAYNES Albuterol 2.5 mg 08/11/18 20:58 08/16/18 16:14 Proventil IH 2.5 mg Q3HRT PRN Administration Shortness Of Breath Albuterol/Ipratropium 1 ampul 08/16/18 20:00 08/16/18 20:05 Duoneb *Not For Prn Use* IH Not Given TIDRT CARLOS Allopurinol 100 mg 08/12/18 10:00 08/16/18 12:44 Zyloprim PO 100 mg DAILY CARLOS Administration Arformoterol Tartrate 15 mcg 08/13/18 09:45 08/16/18 20:05 Brovana Nebu IH 15 mcg Q12HRT CARLOS Administration Budesonide 0.5 mg 08/13/18 10:00 08/16/18 20:05 Pulmicort IH 0.5 mg Q12HRT CARLOS Administration Cyclosporine 50 mg 08/12/18 22:00 08/16/18 21:37 Sandimmune PO 50 mg QHS CARLOS Administration Cyclosporine 75 mg 08/13/18 10:00 08/16/18 12:45 Sandimmune PO 75 mg QAM CARLOS Administration Hydralazine HCl 10 mg 08/14/18 13:31 08/15/18 00:51 Apresoline IV 10 mg Q4HR PRN Administration HTN SBP>=180 DBP>=110 Ceftriaxone Sodium 1 gm in 50 mls @ 100 mls/hr 08/12/18 10:00 08/16/18 12:42 Rocephin/Ns 1 Gm/50 Ml IV 100 mls/hr Q24HR CARLOS Administration Protocol Azithromycin 500 mg/ Sodium 250 mls @ 250 mls/hr 08/13/18 10:00 08/16/18 12:42 Chloride IV 08/17/18 10:59 250 mls/hr Q24HR CARLOS Administration Loperamide HCl 2 mg 08/14/18 22:26 Imodium PO Q2H PRN Diarrhea Metoprolol Tartrate 50 mg 08/15/18 10:30 08/16/18 21:37 Lopressor PO 50 mg BID CARLOS Administration Pantoprazole Sodium 40 mg 08/12/18 10:00 08/16/18 12:44 Protonix PO 40 mg QDAY CARLOS Administration Pravastatin Sodium 20 mg 08/12/18 22:00 08/16/18 21:37 Pravachol PO 20 mg QHS CARLOS Administration Prednisone 7.5 mg 08/12/18 10:00 08/16/18 12:44 Deltasone PO 7.5 mg DAILY CARLOS Administration Sertraline HCl 50 mg 08/13/18 14:00 08/16/18 12:43 Zoloft PO 50 mg QDAY CARLOS Administration Sodium Chloride 10 ml 08/11/18 22:00 08/16/18 22:00 Sodium Chloride Flush Syringe 10 Ml IV 10 ml BID CARLOS Administration Sodium Chloride 10 ml 08/11/18 20:58 Sodium Chloride Flush Syringe 10 Ml IV PRN PRN LINE FLUSH Spironolactone 50 mg 08/17/18 10:00 Aldactone PO QDAY CARLOS Temazepam 15 mg 08/12/18 22:00 08/16/18 21:37 Restoril PO 15 mg QHS CARLOS Administration
[2018-08-17] MEDS: PULMICORT IH SCH ×2 (09:30→19:29)
[2018-08-17] MEDS: DUONEB *Not for PRN Use IH SCH ×2 (09:30→15:12)
[2018-08-17] MEDS: BROVANA NEBU IH SCH ×2 (09:30→19:28)
[2018-08-17] MEDS ORDERED: ALDACTONE PO SCH (10:00)
[2018-08-17] MEDS: ZITHROMAX 500 MG in NACL 0.9% 250ML 250 ML IV SCH (10:26)
[2018-08-17] MEDS: ROCEPHIN/NS 1 GM/50 ML 1 GM/50 ML BAG IV SCH (10:28)
[2018-08-17] MEDS: DELTASONE PO SCH (10:30)
[2018-08-17] MEDS: SandIMMUNE PO SCH (10:31)
[2018-08-17] MEDS: LOPRESSOR PO SCH (10:32)
[2018-08-17] MEDS: ZYLOPRIM PO SCH (10:32)
[2018-08-17] MEDS: SODIUM CHLORIDE FLUSH SYRINGE 10 ML IV SCH ×2 (10:33→10:34)
[2018-08-17] MEDS: PROTONIX PO SCH (10:33)
[2018-08-17] MEDS: ZOLOFT PO SCH (10:33)
[2018-08-17] MEDS ORDERED: NACL 0.9% 500 ML 500 ML IV NR (10:52)
--- NOTE | 2018-08-17 11:52 | XRay Report ---
ROUTINE CHEST, TWO VIEWS: HISTORY: Right upper lobe density. The previously described right upper lobe densities on CT chest dated 08/14/18 are not identified on x-ray. This may be due to their small size or they have resolved. The lungs are clear. Borderline to mild cardiomegaly and pulmonary venous congestion are identified. Trace pleural effusions are identified on the lateral view. The bony structures are demineralized but grossly intact. IMPRESSION: The right upper lobe densities seen on recent CT chest are not identified on x-ray. Consider mild volume overload.
[2018-08-17] MEDS ORDERED: NACL 0.9% 500 ML 500 ML IV SCH (14:00)
--- NOTE | 2018-08-17 15:19 | Discharge Summary ---
Providers - Providers Date of Admission: 08/11/18 20:58 Date of discharge: 08/17/18 Attending physician: LUNA COLLIER 08/11/18 20:58 Consult to Physician [CONS] Routine Comment: Consulting Provider: THEODORE VAELNTINE Physician Instructions: Reason For Exam: s/p renal transplant 1991, active uti 08/11/18 21:13 Consult to Mental Health [CONS] Routine Reason For Exam: mental health eval, Place consult to:: ISAÍAS Notified:: ISAÍAS Phone number called:: [phone] Was contact made?: Yes If yes, spoke with:: ISAÍAS Time called:: 08:03 08/13/18 09:47 Consult to Physician [CONS] Routine Comment: Consulting Provider: NISH MORENO Physician Instructions: Reason For Exam: pancytopenia 08/13/18 13:57 Consult to PICC Line RN [CONS] Routine Reason For Exam: no iv access, need abx Type Line:: Midline 08/14/18 17:54 Consult to Physician [CONS] Routine Comment: Consulting Provider: SHEILA REARDON Physician Instructions: Reason For Exam: Evaluate for lung cancer Hospitalization Condition: Critical Pertinent studies: CT of the chest Renal ultrasound Procedures: 1 unit PRBC transfusion Hospital course: Patient is 62-year-old female with a history of COPD bronchitis chronic kidney disease stage IV status post renal transplant presented with low-grade fever. Patient had previously had pneumonia and psychosis from [facility]. At present appears to be doing much better. Discussed with the hematology oncology and he is okay with patient being discharged and she should follow-up with her oncologist in 1 week to recheck her CBC. She has been afebrile Chest x-ray shows no infiltrate on although the CT of the chest showed right upper lobe infiltrate. Patient was seen by oncology, nephrology and pulmonology specialities. She was started on ceftriaxone and azithromycin for suspected pneumonia. she is pancytopenic. Her hemoglobin this morning was 6.2. She has no complaints. 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 She is medically stable for discharge. Patient completed 5 days of IV antibiotic Disposition: TO HOME OR SELFCARE Time spent for discharge: 38 min Core Measure Documentation - Palliative Care Palliative Care/ Comfort Measures: Not Applicable - Core Measures Any of the following diagnoses?: none Exam - Constitutional Vitals: Temp Pulse Resp BP Pulse Ox 97.9 F 84 19 131/62 97 08/17/18 12:21 08/17/18 15:14 08/17/18 15:14 08/17/18 12:21 08/17/18 12:21 General appearance: Present: no acute distress - EENT Eyes: Present: PERRL, EOM intact ENT: hearing intact, clear oral mucosa - Neck Neck: Present: supple, normal ROM. Absent: masses or JVD - Respiratory Respiratory effort: normal Respiratory: bilateral: CTA, diminished - Cardiovascular Rhythm: regular Heart Sounds: Present: S1 & S2 - Extremities Extremities: No edema - Abdominal General gastrointestinal: Present: soft, non-tender. Absent: hepatomegaly, splenomegaly Female genitourinary: Present: deferred - Rectal Rectal Exam: deferred - Integumentary Integumentary: Present: clear - Musculoskeletal Musculoskeletal: strength equal bilaterally - Psychiatric Psychiatric: appropriate mood/affect Plan Activity: advance as tolerated, fall precautions Weight Bearing Status: Weight Bear as Tolerated Diet: regular Follow up with: KATHERINE YA MD [Referring] - 3-5 Days
[2018-08-17 17:57] VITALS: BP 138/75
== END 2018-08-17 19:33 | disposition home or self-care (01) | DRG 871 ==
LOC: ED 16:16 → 3A 20:58
PROVIDERS: ADMIT Internal Medicine; ATTEND Internal Medicine
PROC: 4A033R1 Measurement of Arterial Saturation, Peripheral, Percutaneous Approach (ICD-10-PCS; principal; 2018-08-17)
PROC: 30233N1 Transfusion of Nonautologous Red Blood Cells into Peripheral Vein, Percutaneous Approach (ICD-10-PCS; 2018-08-17)
DX: A41.9 Sepsis, unspecified organism (principal); G93.41 Metabolic encephalopathy; J69.0 Pneumonitis due to inhalation of food and vomit; N39.0 Urinary tract infection, site not specified; E87.1 Hypo-osmolality and hyponatremia; N18.4 Chronic kidney disease, stage 4 (severe); D61.818 Other pancytopenia; N17.9 Acute kidney failure, unspecified; J45.901 Unspecified asthma with (acute) exacerbation; Z94.0 Kidney transplant status; I12.9 Hypertensive chronic kidney disease with stage 1 through stage 4 chronic kidney disease, or unspecified chronic kidney disease; F41.9 Anxiety disorder, unspecified; F32.9 Major depressive disorder, single episode, unspecified; E11.22 Type 2 diabetes mellitus with diabetic chronic kidney disease; E78.5 Hyperlipidemia, unspecified; D63.1 Anemia in chronic kidney disease; J44.9 Chronic obstructive pulmonary disease, unspecified; R31.9 Hematuria, unspecified; K21.9 Gastro-esophageal reflux disease without esophagitis; E86.0 Dehydration; Z87.01 Personal history of pneumonia (recurrent); Z88.8 Allergy status to other drugs, medicaments and biological substances
CPT/HCPCS: 36415; 36600; 71045; 71046; 71250; 76705; 76770; 80048; 80053; 80158; 81001; 82140; 82270; 82607; 82728; 82747; 82803; 82962; 83036; 83550; 83615; 85007; 85025; 85027; 86850; 86900; 86901; 86920; 87040; 87086; 87493; 93975; 94640; 96365; 96375; G0378; A9270-GY; J0360; J0456; J0692; J0696; J0885; J1815; J2930; J7030; J7040; J7050; J7512; J7515; P9016